=== PATIENT | female | born 1975 | race Caucasian/White ===

== ENCOUNTER 2021-12-08 08:59 | Outpatient (CLI) | payer BC, SELFPAY ==
[2021-12-08 16:36] LABS: SARS PCR* Negative SARS-CoV-2 (Negative)
--- OUTSIDE RECORDS SUMMARY | 2021-12-15 01:19 | XMS_ITS | Encounter Summary ---
:1975 Author Organization [facility] Address [address] [place] [address] Care Team Providers Name Role Phone Jose Combs M.D. Primary Care Provider [phone] Encounter Details Date Type Department Care Team Description 03/13/2021 Admin Visit Department of Family Medicine, [address] [address] [facility] [place] [phone] Social History Tobacco Use Types Packs/Day Years Used Date Smoking Tobacco: Never Sex Assigned at Date Recorded Not on file documented as of this encounter Plan of Treatment Not on filedocumented as of this encounter Visit Diagnoses Not on filedocumented in this encounter Additional Health Concerns Infection Onset Date Last Indicated Resolved Time COVID19 Pending 03/13/2021 03/13/2021 03/13/2021 11:23 PM CDT Assessment Noted Time PHQ-9 Depression Total Score: 4 01/05/2017 10:03 AM CD T documented as of this encounter Care Teams Shuttle Hand Relationship Specialty Start Date End Date Jose Combs M.B.B.S., MEdilberto. PCP - General [facility]/08/19 [address] [facility] [place] [phone] documented as of this encounter
--- OUTSIDE RECORDS SUMMARY | 2021-12-15 01:19 | XMS_ITS | Encounter Summary ---
:1975 Author Organization [facility] Address [address] [place] [address] Care Team Providers Name Role Phone Jose Combs M.D. Primary Care Provider [phone] Reason for Visit Reason Onset Date Comments Testing For Upper Respiratory Virus Symptoms 03/13/2021 Encounter Details Date Type Department Care Team Description 03/13/2021 External Outreach Department of [facility] Jeremy Joshua Contact With And (Suspected) Exposure To COVID-19; Medicine, [facility] Manjit Sprague Infection Upper Respiratory Building, in [address] [place], [place] [address] [facility] [address] [place], [place] [phone] [address] (Work) [phone] Social History Tobacco Use Types Packs/Day Years Used Date Smoking Tobacco: Never Sex Assigned at Date Recorded Not on file documented as of this encounter Progress Notes Aranza Krishnamurthy R.N. - 03/13/2021 9:15 AM CDT Encounter created for symptomatic infectious disease screening with possible COVID, Influenza, RSV, and/or Group A Strep testing. documented in this encounter Plan of Treatment Not on filedocumented as of this encounter Procedures Procedure Name Priority Date/Time Associated Diagnosis Comme nts SARS CORONAVIRUS-2 Routine 03/13/2021 10:24 AM Contact With An d Results for this RNA, V CDT (Suspected) Exposure procedu re are in To COVID-19 the results section. GROUP A STREP PCR, Routine 03/13/2021 10:24 AM Infection Upper Results for this THROAT CDT Respiratory procedure are i n the results section. documented in this encounter Results Streptococcus Group A, Molecular Detection, PCR, Throat (03/13/2021 10:24 AM CDT) P athologist Signature Group A Strep Negative Negative 03/13/2021 [place] PCR, Throat 6:20 PM CDT Specimen Anatomical Collection Method Collection Time Receive d Time (Source) Location / / Volume Laterality Varies (Throat) 03/13/2021 10:24 03/13/20 21 5:45 AM CDT PM CDT Joshua Luna D.O. LAB MICROBIOLOGY - GENERAL O RDERABLES Performing Organization Address City/State/ZIP Code Phon e Number [facility]- [address] [place] [address] [facility] [place] [address] System in [place] [address] SARS Coronavirus-2 RNA, V Symptomatic (03/13/2021 10:24 AM CDT) [facility] Method Time Signature SARS-CoV-2 Swab, 03/13/2021 MK[facility] Specimen Nasopharynx 11:23 PM Source CDT SARS CoV-2 Undetected Undetected 03/13/2021 [facility] RNA, TMA 11:23 PM CDT Comment: SARS-CoV-2 RNA absent. This result does not rule out COVID-19 in the patient, as the sensitivity of the test depends o n the timing of the specimen collection and the quality of the specim en. Result should be correlated with patient's history and clinical presentat ion. ----ADDITIONAL INFORMATION---- This molecular amplification test was pe rformed using the Aptima SARS-CoV-2 assay ([employer] on the [employer] [place] tem under emergency use authorization (EUA) by the U.S. Food and Drug Administ ration. Fact sheets for this EUA assay can be fo und at the following links: For Healthcare Providers: https://www.Cojoin a.gov/media/786598/download For Patients: https://www.fda.gov/media/ 055465/download Specimen Anatomical Collection Method Collection Time Receive d Time (Source) Location / / Volume Laterality Varies 03/13/2021 10:24 03/13/2021 5:03 (Nasopharynx) AM CDT PM CDT Joshua Luna D.O. LAB MICROBIOLOGY - GENERAL O RDERABLES Performing Organization Address City/State/ZIP Code Phon e Number [facility]- [address] [place] [address] [place] [address] System [address] documented in this encounter Visit Diagnoses Diagnosis Contact With And (Suspected) Exposure To COVID-19 Infection Upper Respiratory documented in this encounter Additional Health Concerns Infection Onset Date Last Indicated Resolved Time COVID19 Pending 03/13/2021 03/13/2021 03/13/2021 11:23 PM CDT Assessment Noted Time PHQ-9 Depression Total Score: 4 01/05/2017 10:03 AM CD T documented as of this encounter Care Teams Hotel Housekeeper Relationship Specialty Start Date End Date Jose Combs M.B.B.S., M.D. PCP - General 04/08/[address] [place] [phone] documented as of this encounter
--- OUTSIDE RECORDS SUMMARY | 2021-12-15 01:19 | XMS_ITS | Encounter Summary ---
:1975 Author Organization [facility] Address [address] [place] [address] Care Team Providers Name Role Phone Jose Combs M.D. Primary Care Provider [phone] Encounter Details Date Type Department Care Team Description 08/11/2020 Orders Only [facility] PCP [facility] MNT Jose Combs Sc reening Mammogram Alexa ColemanBPeymanBPeymanSPeyman, Breast Cancer M.D. [address] [facility] [place] [address] Social History Tobacco Use Types Packs/Day Years Used Date Smoking Tobacco: Never Sex Assigned at Date Recorded Not on file documented as of this encounter Plan of Treatment Not on filedocumented as of this encounter Visit Diagnoses Diagnosis Screening Mammogram Breast Cancer documented in this encounter Additional Health Concerns Assessment Noted Time PHQ-9 Depression Total Score: 4 01/05/2017 10:03 AM CD T documented as of this encounter Care Teams Communications Technologist Relationship Specialty Start Date End Date Jose Combs M.B.BMonalisa, MPeymanD. PCP - General 04/08/19 [address] [facility] [place] [address] documented as of this encounter
--- OUTSIDE RECORDS SUMMARY | 2021-12-15 01:19 | XMS_ITS | Encounter Summary ---
:1975 Author Organization [facility] Address [address] [place] [address] Care Team Providers Name Role Phone Jose Combs M.D. Primary Care Provider [phone] Reason for Visit Reason Comments COVID Nurse Line Encounter Details Date Type Department Care Team Description 05/13/2020 Clinical Communication Division of [facility] Nurse Sera [facility] Internal [facility] [address] [place] [address], in [facility] [address] [place] [phone] [address] [facility] (Work) [place] [address] Social History Tobacco Use Types Packs/Day Years Used Date Smoking Tobacco: Never Sex Assigned at Date Recorded Not on file documented as of this encounter Miscellaneous Notes Telephone Encounter - Carolina Gomez R.N. - 05/13/2020 9:21 AM REIMBURSEMENT DIRECTOR COVID-19 Nurse Line Screening ASSESSMENT Combo COVID + Upper Respiratory Infection (URI) Screening Select the most appropriate pathway: : Adult Have you had close contact* with a person who has a LABORATORY CONFIRMED case of COVID-19 in the past 14 days?: No (Continue Screening)(Last contact 05/06/20) In the last 48 hours, have you had a fever* OR symptoms that are unrelated to a preexisting illness?: New shortness of breath, New diarrhea, New muscle aches Have you received a COVID-19 vaccine in the last 72 hours? : No vaccine received (Continue Screening) Do you have any of the following urgent symptoms?: No urgent symptoms noted (Continue Screening) Do you have any of the following respiratory syntonical virus (RSV) complications? : No complications noted (Continue Screening) Are all the following symptoms present: temperature of 100.0 degrees Fahrenheit or greater, muscle aches or headache AND a cough?: No all symptoms are not present (End Screening) Symptom Onset Date of symptom onset: 05/12/20 Testing Recommendation Endpoint Is testing recommended? : Recommended to test PLAN Endpoint recommendation: Screening positive, testing indicated, advised to be swabbed for COVID-19 and Influenza, sent to [facility] located at [address] [place] [address]. The entrance is on the north side of the building. You must call [phone] for an appointment time.Testing hours are Daily 9 am to 5 pm.When you arrive at the testing site: Remain in your vehicle and check-in by phone using the same appointment line number. and Please avoid using public transportation per CDC recommendation. If you do not have personal transportation please self-quarantine until a personal transportation option is available. and Provided instruction to quarantine for 14 days from the last contact exposure to a confirmed COVID-19 case and testing is recommended. The best time to test is 5-7 days after last contact with an infected individual in order to have the best chance of detecting infection. If you are unsure of your last contact, or would like testing now, we can perform testing now. Even if your test is negative, you should continue to follow official public health quarantine recommendations. Contact your primary care team with any new symptoms. Care Points: -Wash hands frequently with soap and water for at least 20 seconds -If soap and water are not available, use a hand maintenance shop technician -Avoid touching your eyes, nose and mouth. -Clean and disinfect high-touch surfaces routinely. -Wear a mask over your nose and mouth. A cloth face cover is not a substitute for social distancing -Continue to keep about 6 feet between yourself and others. -Avoid public areas and public transportation. -Find new ways to connect with family and friends, get support and share feelings. -Seek emergent care if any of the following occur Trouble breathing Bluish lips or face Persistent pain or pressure in the chest New confusion or inability to rouse. -Notify your regular care provider of any new or worsening symptoms. Symptomatic Carepoints: Separate yourself from others and stay in a specific sick room if able. Avoid sharing personal or household items. Rest. Hydrate. Take Acetaminophen/Ibuprofen as needed to control fever and muscles aches. Use over the counter medications as needed for other symptoms. ExposureCarepoints: Continue to quarantine for 14 days from your last known exposure to someone with a laboratory confirmed case of COVID-19 regardless of a negative test result unless otherwise directed. If you remain asymptomatic and wish to be tested, it is recommended that you wait 5-7 days after the exposure before testing unless otherwise directed. Testing is recommended if you become symptomatic at any point. Education: Patient/caregiver able to teach back Patient agreeable to plan of care: Yes The following references were used: [facility] novel coronavirus (COVID- 19) resources CDC web site https://www.cdc.gov/coronavirus/2019-ncov/summary.html Nursing judgement BURSEMENT DIRECTOR documented in this encounter Plan of Treatment Not on filedocumented as of this encounter Visit Diagnoses Not on filedocumented in this encounter Additional Health Concerns Assessment Noted Time PHQ-9 Depression Total Score: 4 01/05/2017 10:03 AM CD T documented as of this encounter Care Teams Service Rig Operator Relationship Specialty Start Date End Date Jose Combs M.B.B.S., M.D. PCP - General 04/08/[address] [place] [phone] documented as of this encounter
--- OUTSIDE RECORDS SUMMARY | 2021-12-15 01:19 | XMS_ITS | Encounter Summary ---
:1975 Author Organization [facility] Address [address] [place] [address] Care Team Providers Name Role Phone Jose Combs M.D. Primary Care Provider [phone] Reason for Visit Reason Onset Date Comments Testing For Upper Respiratory Virus Symptoms 05/13/2020 Encounter Details Date Type Department Care Team Description 05/13/2020 External Outreach Department of [facility] Jeremy Joshua Contact With And (Suspected) Exposure To COVID-19; Medicine, [facility] Manjit Sprague Infection Upper Respiratory Building, in [address] [place], [place] [address] [facility] [address] [place], [place] [phone] [address] (Work) [phone] Social History Tobacco Use Types Packs/Day Years Used Date Smoking Tobacco: Never Sex Assigned at Date Recorded Not on file documented as of this encounter Progress Notes Juan Stack R.N. - 05/13/2020 9:37 AM CST Encounter created for symptomatic infectious disease screening with possible COVID, Influenza, and RSV testing. M DUMPER documented in this encounter Plan of Treatment Not on filedocumented as of this encounter Procedures Procedure Name Priority Date/Time Associated Diagnosis Comme nts SARS CORONAVIRUS-2 Routine 05/13/2020 10:32 AM Contact With An d Results for this RNA, V CREAM DUMPER (Suspected) Exposure procedu re are in To COVID-19 the results section. documented in this encounter Results SARS Coronavirus-2 RNA, V Symptomatic (05/13/2020 10:32 AM CREAM DUMPER) [facility] Method Time Signature SARS-CoV-2 Swab, 05/14/2020 [facility] Specimen Nasopharynx 2:15 AM CREAM DUMPER Source SARS CoV-2 Undetected Undetected 05/14/2020 [facility]TO RNA, TMA 2:15 AM CREAM DUMPER Comment: SARS-CoV-2 RNA absent. This result does not rule out COVID-19 in the patient, as the sensitivity of the test depends o n the timing of the specimen collection and the quality of the specim en. Result should be correlated with patient's history and clinical presentat ion. ----ADDITIONAL INFORMATION---- This molecular amplification test was pe rformed using the Aptima SARS-CoV-2 assay ([employer] on the [employer] tem under emergency use authorization (EUA) by the U.S. Food and Drug Administ ration. Fact sheets for this EUA assay can be fo und at the following links: For Healthcare Providers: https://www.fd a.gov/media/062063/download For Patients: https://www.fda.gov/media/ 646956/download Specimen Anatomical Collection Method Collection Time Receive d Time (Source) Location / / Volume Laterality Varies 05/13/2020 10:32 05/13/2020 3:02 (Nasopharynx) AM CREAM DUMPER PM CREAM DUMPER Joshua Luna D.O. LAB MICROBIOLOGY - GENERAL O JIMMY Performing Organization Address City/State/ZIP Code Phon e Number [facility]- [address] [place] [phone] [place] [address] [place] [address] [address] documented in this encounter Visit Diagnoses Diagnosis Contact With And (Suspected) Exposure To COVID-19 Infection Upper Respiratory documented in this encounter Additional Health Concerns Infection Onset Date Last Indicated Resolved Time COVID19 Pending 05/13/2020 05/13/2020 05/14/2020 2:15 AM CREAM DUMPER Assessment Noted Time PHQ-9 Depression Total Score: 4 01/05/2017 10:03 AM CD T documented as of this encounter Care Teams Tub Operator Relationship Specialty Start Date End Date Jose Combs M.B.B.S., M.D. PCP - General 04/08/[address] [place] [address] [place] [phone] documented as of this encounter
--- OUTSIDE RECORDS SUMMARY | 2021-12-15 01:19 | XMS_ITS | Encounter Summary ---
:1975 Author Organization [facility] Address [address] [place] [address] Care Team Providers Name Role Phone Jose Combs M.D. Primary Care Provider [phone] Reason for Referral Specialty Diagnoses / Procedures Referred By Contact Refer red To Contact Jose Combs M.B.B.S., [facility] [address] [place] [address] Referral ID Status Reason Start Date Expiration Date Visits Requ ested Visits Authorized TYPE FINISHER Encounter Details Date Type Department Care Team Description 04/02/2021 Orders Only [facility] PCP [facility] Jose Combs M.B.B.S., M.D. [address] [place], [place] [phone] (Wo rk) Social History Tobacco Use Types Packs/Day Years Used Date Smoking Tobacco: Never Sex Assigned at Date Recorded Not on file documented as of this encounter Plan of Treatment Scheduled Referrals Name Type Priority Associated Order Schedule Diagnoses Covid immunization Outpatient Referral Routine Ex pected: office visit Booster 021 (Approximate), Expires: 04/02/2022 documented as of this encounter Visit Diagnoses Not on filedocumented in this encounter Additional Health Concerns Assessment Noted Time PHQ-9 Depression Total Score: 4 01/05/2017 10:03 AM CD T documented as of this encounter Care Teams Ios Software Engineer Relationship Specialty Start Date End Date Jose Combs M.B.B.S., M.D. PCP - General 04/08/[address] [place] [address] [place] [phone] documented as of this encounter
--- OUTSIDE RECORDS SUMMARY | 2021-12-15 01:19 | XMS_ITS | Encounter Summary ---
:1975 Author Organization [facility] Address [address] [place] [address] Care Team Providers Name Role Phone Jose Combs M.D. Primary Care Provider [phone] Reason for Referral Outpatient (Routine) - Authorized Specialty Diagnoses / Procedures Referred By Contact Refer red To Contact Family Medicine Jose Combs [facility] EULOGIO Rucker M.D. [address] [place] [phone] Referral ID Status Reason Start Date Expiration Date Visits V isits Requested Authorized [id number] Authorized 11/10/2021 11/10/2022 1 1 Encounter Details Date Type Department Care Team Description 11/10/2021 Orders Only [facility] PCP [facility] Sa morelia Jeong M.D. [address] [place], [place] [phone] (Wo rk) Social History Tobacco Use Types Packs/Day Years Used Date Smoking Tobacco: Never Sex Assigned at Date Recorded Not on file documented as of this encounter Plan of Treatment Scheduled Referrals Name Type Priority Associated Diagnoses Order S filomena Family Medicine Outpatient Referral Routine Expec dominick: office visit 11/24/2021, (clinic) Expires: 05/09/2022 documented as of this encounter Visit Diagnoses Not on filedocumented in this encounter Additional Health Concerns Assessment Noted Time PHQ-9 Depression Total Score: 4 01/05/2017 10:03 AM CD T documented as of this encounter Care Teams Automatic Drill Operator Relationship Specialty Start Date End Date Jose Combs M.B.B.S., M.D. PCP - General 04/08/[address] [place] [phone] documented as of this encounter
--- OUTSIDE RECORDS SUMMARY | 2021-12-15 01:19 | XMS_ITS | Clinical Summary ---
:1975 Author Organization [facility] Address [address] [place] [address] Care Team Providers Name Role Phone Jose Combs M.D. Primary Care Provider [phone] Source Comments Patient records contain information from all sites at [facility]. For routine questions regarding patient records, call [phone] during business hours, M-F 8:00 AM - 5:00 PM Central Time. Record requests for emergency care only can be directed to [phone] at any time.[facility] Medications Medication Sig Dispensed Refills Start Date End Date Status cetirizine (ZyrTEC) 10 Take 1 tablet (10 30 tablet 0 8 Active mg tablet mg total) by mouth daily as needed for allergies. For allergies. Due for follow-up. escitalopram (LEXAPRO) Take 1 tablet (10 15 tablet 0 8 Active 10 mg tablet mg total) by mouth daily. Due for follow-up simvastatin (ZOCOR) 20 Take 1 tablet (20 30 tablet 0 8 Active mg tablet mg total) by mouth at bedtime. Due for labs Active Problems Problem Noted Date Body Mass Index 40.0 To 44.9 Adult 08/29/2016 Overview: Body mass index (BMI) 40.0-44.9, adult Rule activated problem due to BMI 40-44 posted on 08/29 at 15:09 CDT. Depression Anxiety 12/31/2015 Overview: Depression Anxiety Encounters Date Type Specialty Care Team Description 11/10/2021 Orders Only Leslie Henry M.D. from Last 3 Months Immunizations Name Administration Dates Next Due Influenza TIV (IM) 03/21/2012, 02/16/2009, 03/05/2008, 02/27/2007, 03/17/2006 Influenza, Injectable, Quadrivalent 02/06/2019, 02/16/2016, 03/03/2015 Influenza, Seasonal, Injectable 03/21/2012, 02/16/2009, 02/06, 02/27/2007, 03/17/2006 Influenza, Unspecified 03/21/2012, 04/20/2011, 03/17/2010 Td (Adult), adsorbed 04/26/2021 Tdap 05/03/2010 influenza vaccine quad 03/11/2021, 02/06/2020, 02/05/2019, (FLUZONE/FLUARIX) (6 months and 02/22/2018, 02/23/2017 older)(PF) Family History Medical History Relation Name Comments Melanoma Father Heart attack Mother Hyperlipidemia Mother Relation Name Status Comments Father Mother Social History Tobacco Use Types Packs/Day Years Used Date Smoking Tobacco: Never Sex Assigned at Date Recorded Not on file Last Filed Vital Signs Vital Sign Reading Time Taken Comments Blood Pressure 129/72 02/23/2017 11:11 AM CDT Pulse 68 02/23/2017 11:07 AM CDT Temperature - - Respiratory Rate 12 01/05/2017 8:24 AM CDT Oxygen Saturation - - Inhaled Oxygen Concentration - - Weight 107 kg (235 lb 7.2 oz) 02/01/2017 3:36 PM CDT Height 163 cm (5' 4.17) 02/23/2017 11:01 AM CDT Body Mass Index 40.2 02/01/2017 3:36 PM CDT Plan of Treatment Health Maintenance Due Date Last Done Comments CT Colonography 1975 Cologuard 1975 HIV Screening 1975 Hepatitis B Vaccines (1 of 1975 3 - 3-dose series) Hepatitis C Screening 1975 Mammogram 05/28/2019 05/28/2018 (Performed elsewhere), 02/08/2017, 01/05/2017 COVID-19 Vaccine (3 - 02/16/2021 09/16/2020, 08/26/2020 Booster for Pfizer series) Depression Screening 05/08/2021 (Annual PHQ-2) Cervical Cancer Screening 01/05/2022 01/05/2017, 12/31/2015 , 12/18/2014, Additional history exists Influenza Vaccine (#1) 2022 03/11/2021, 02/06/2020, 02/06/2019, Additional history exists Colonoscopy 04/12/2024 04/12/2021, 01/30/2017, 01/30/2017 Colorectal Cancer 04/12/2024 Surveillance Fasting Glucose for 04/26/2024 04/26/2021, 05/14/2020, Diabetes Screening 04/19/2019, Additional history exists Fasting Lipid Panel 04/26/2026 04/26/2021, 04/23/2020, 04/19/2019, Additional history exists DTaP,Tdap,and Td Vaccines 04/26/2031 04/26/2021, 05/03/2010 (3 - Td or Tdap) Pneumococcal vaccine (0-64 Aged Out No lo nger eligible years) based on patient 's age to complete this topic Insurance Payer Benefit Plan / Subscriber ID Effective Dates Phone Addre ss Type Group [employer] [id number] 2020-Presen [id number] [facility] t 00 [facility] [id number] Care Teams Outlet Manager Relationship Specialty Start Date End Date Jose Combs M.B.BPeymanSPeyman, M.D. PCP - General 04/08/19 [address] [place] [place] [address]
--- OUTSIDE RECORDS SUMMARY | 2021-12-15 01:19 | XMS_ITS | Encounter Summary ---
:1975 Author Organization [facility] Address [address] [place] [address] Care Team Providers Name Role Phone Jose Combs M.D. Primary Care Provider [phone] Encounter Details Date Type Department Care Team Description 05/13/2021 Orders Only [facility]CP [facility] Jose Combs Sc reening Mammogram Alexa ColemanBPeymanBPeymanSPeyman, Breast Cancer M.D. [address] [facility] [place] [address] Social History Tobacco Use Types Packs/Day [...] documented as of this encounter Care Teams Boat Joiner Helper Relationship Specialty Start Date End Date Jose Combs M.B.BMonalisa, MPeymanD. PCP - General 04/08/19 [address] [facility] [place] [address] documented as of this encounter
--- OUTSIDE RECORDS SUMMARY | 2021-12-15 01:19 | XMS_ITS | Encounter Summary ---
:1975 Author Organization [facility] Address [address] [place] [address] Care Team Providers Name Role Phone Jose Combs M.D. Primary Care Provider [phone] Encounter Details Date Type Department Care Team Description 05/13/2020 Admin Visit Department of Family Medicine, [address] [address] [facility] [phone] Social History Tobacco Use Types Packs/Day Years Used Date Smoking Tobacco: Never Sex Assigned at Date Recorded Not on file documented as of this encounter Plan of Treatment Not on filedocumented as of this encounter Visit Diagnoses Not on filedocumented in this encounter Additional Health Concerns Infection Onset Date Last Indicated Resolved Time COVID19 Pending 05/13/2020 05/13/2020 05/14/2020 2:15 AM DIRECTOR CHEMISTRY Assessment Noted Time PHQ-9 Depression Total Score: 4 01/05/2017 10:03 AM CD T documented as of this encounter Care Teams Turbogenerator Operator Relationship Specialty Start Date End Date Jose Combs M.B.B.S., MEdilberto. PCP - General 04/08/19 [address] [facility] [place] [id number] documented as of this encounter
--- OUTSIDE RECORDS SUMMARY | 2021-12-15 01:19 | XMS_ITS | Encounter Summary ---
:1975 [address] Organization [facility] Address [address] [place] [address] Care Team Providers Name Role Phone Jose Combs M.D. Primary Care Provider [phone] Reason for Visit Reason Comments COVID Nurse Line Encounter Details Date Type Department Care Team Description 03/13/2021 Clinical Communication Division of Mercedes Chen Nurse Line [facility] M, R.NPeyman [facility] [phone] [place], in (Work) [place], [place] [address] [place] [address] Social History Tobacco Use Types Packs/Day Years Used Date Smoking Tobacco: Never Sex Assigned at Date Recorded Not on file documented as of this encounter Miscellaneous Notes Telephone Encounter - Mercedes Chen [employer] - 03/13/2021 8:53 AM CDT COVID-19 Nurse Line Screening ASSESSMENT Region Select appropriate region: : [place] Age Pathway Select approprite pathway: : Adult Have you had close contact* with a person who has a LABORATORY CONFIRMED case of COVID-19 in the past 14 days?: No (Continue Screening) In the last 48 hours, have you had a fever* OR symptoms that are unrelated to a preexisting illness?: New headache,New sore throat Have you received a COVID-19 vaccine in the last 72 hours? : No vaccine received (Continue Screening) Do you have any of the following urgent symptoms?: No urgent symptoms noted (Continue Screening) Symptom Onset Date of symptom onset: 03/11/21 PLAN Endpoint recommendation: Symptomatic testing indicated, advised to be swabbed for COVID-19 and GroupA Strep (age 3 - 75 only), sent to [facility] located at [address] [place] [address] ([facility]). Anappointment is required for testing, please call [phone] Monday-Monday 7am to 6pm and Monday & Monday 9am to 4pm to schedule an appointment. Testing hours are 8am - 4:30pm daily. You can also schedule via your Patient Online Services account., Please avoid using public transportation per CDC recommendation. If you do not have personal transportation please self-quarantine until a personal transportation option is available. Standard Care Points -Get a COVID -19 vaccine as soon as you can if not fully vaccinated. -Wash hands frequently with soap and water, use hand hvac design mechanical engineer if soap and water aren't available. -Wear a mask over your nose and mouth to help protect yourself and others if not fully vaccinated and having no symptoms -Stay 6 feet between yourself and others who don't live with you. -Avoid crowds and poorly ventilated indoor spaces. -Seek emergent care if any of the following occur Trouble breathing Bluish lips or face Persistent pain or pressure in the chest New confusion or inability to rouse. -Notify your regular care provider of any new or worsening symptoms. Symptomatic Carepoints: Stay home and separate yourself from others and stay in a specific sick room if able. Avoid sharing personal or household items. Rest. Hydrate. Take Acetaminophen/Ibuprofen asneeded to control fever and muscles aches. Use over the counter medications as needed for other symptoms. If you have received a negative COVID-19 test result and continue to have new or worsening symptoms after 72 hours please call the COVID Nurse Line to assess if you need repeat testing or reach out to your Primary Care Provider for guidance. Education: Patient/caregiver able to teach back Patient agreeable to plan of care: Yes The following references were used: [facility] novel coronavirus (COVID- 19) resources Nursing judgement documented in this encounter Plan of Treatment Not on filedocumented as of this encounter Visit Diagnoses Not on filedocumented in this encounter Additional Health Concerns Assessment Noted Time PHQ-9 Depression Total Score: 4 01/05/2017 10:03 AM CD T documented as of this encounter Care Teams Measurement Superintendent Relationship Specialty Start Date End Date Jose Combs M.B.B.S., M.D. PCP - General 04/08/[address] [place] [address] [place] [id number] documented as of this encounter
--- OUTSIDE RECORDS SUMMARY | 2021-12-15 01:19 | XMS_ITS | Encounter Summary ---
:1975 Author Organization [facility] Address [address] [place] [address] Care Team Providers Name Role Phone Jose Combs M.D. Primary Care Provider [phone] [phone] Encounter Details Date Type Department Care Team Description 08/25/2020 Orders Only [facility] PCP [facility] Sa morelia Jeong M.D. [address] [place], [place] [phone] (Wo rk) Social History [...] documented as of this encounter Care Teams Manager Hris Relationship Specialty Start Date End Date Jose Combs M.B.B.S. MRadha PCP - General 04/08/[address] [place] [address] [place] [phone] documented as of this encounter
--- OUTSIDE RECORDS SUMMARY | 2021-12-15 01:20 | XMS_ITS | Encounter Summary ---
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 [employer] Document Id: [id number] CDT!30 Miscellaneous - Velia Younger LPeymanP.NPeyman 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 Intake/History Entered On: 12/18/2014 10:29 CDT Performed On: 12/18/2014 10:26 CDT by VELIA YOUNGER LPN Intake Chief Complaint : physical Temperature Core : 36.4 DegC(Converted to: 97.5 DegF) (LOW) Peripheral Pulse Rate : 76 /min Respiratory Rate : 16 /min Systolic Blood Pressure : 116 mmHg Diastolic Blood Pressure : 84 mmHg NIBP Mean : 95 mmHg BP Location : Left upper extremity Blood Pressure Cuff Size : Regular Height : 160.5 cm(Converted to: 5 ft 3 inch(es), 63 inch(es)) Actual Weight : 100.4 kg(Converted to: 221 lb 6 oz) Dosing Weight Clinic : 100.4 kg Clinic BSA : 2.12 Body Mass Index : 38.97 kg/m2 VELIA YOUNGER LPN - 12/18/2014 10:26 CDT General Info Languages : Singaporean Is Patient Female and 13-50 no hysterectomy : Yes Status : Patient denies Are you ? : No VELIA YOUNGER LPN - 12/18/2014 10:26 CDT Subjective Pain Symptoms : No VELIA YOUNGER LPN - 12/18/2014 10:26 CDT Dependent Habits Tobacco Use/Currently Using : No Tobacco Use/Last 12 months : No Exposure to Tobacco Smoke : Other: never Smoking Status : Never smoker VELIA YOUNGER LPN - 12/18/2014 10:26 CDT Caffeine Use Grid Caffeine Use : None VELIA YOUNGER LPN - 12/18/2014 10:26 CDT Recreational Drug Use Grid Drug Use : None ARMIN VELIA CRUZ LPN - 12/18/2014 10:26 CDT Source: [facility] [employer] Document Id: [id number] CDT!34 Miscellaneous - Velia Younger L.PPeymanNPeyman - 12/18/2014 10:26 AM CDT Health Assessment Health Assessment Entered On: 12/18/2014 10:29 CDT Performed On: 12/18/2014 10:26 CDT by VELIA YOUNGER LPN Health Assessment Complete Health Assessment Complete or Modified : Annual Health Assessment Annual Health Assessment Completed : Yes VELIA YOUNGER LPN - 12/18/2014 10:26 CDT Nutrition Nutrition Risk Factors by History Adult : None ARMIN VELIA CRUZ LPN - 12/18/2014 10:26 CDT Functional Current Daily Living Assistance : None VELIA YOUNGER LPN - 12/18/2014 10:26 CDT Dependent Habits Tobacco Use/Currently Using : No Tobacco Use/Last 12 months : No Exposure to Tobacco Smoke : Other: never Smoking Status : Never smoker VELIA YOUNGER LPN - 12/18/2014 10:26 CDT Caffeine Use Grid Caffeine Use : None VELIA YOUNGER LPN - 12/18/2014 10:26 CDT Recreational Drug Use Grid Drug Use : None VELIA YOUNGER LPN - 12/18/2014 10:26 CDT Psychosocial Domestic Abuse Concerns : None Behavioral Health Screen/Safety Assmt : No Anabaptist Preference : Unknown VELIA YOUNGER LPN - 12/18/2014 10:26 CDT Advance Directive Advanced Directives : No Advance Directive Additional Information : No VELIA YOUNGER LPN - 12/18/2014 10:26 CDT Educ Needs Learning Style Preference Adult Grid Patient : Demonstration, Printed materials, Verbal explanation, Video/Educational TV Family : Demonstration, Printed materials, Verbal explanation, Video/Educational TV VELIA YOUNGER LPN - 12/18/2014 10:26 CDT Source: [facility] [employer] Document Id: [id number] CDT!30 documented in this encounter Plan of Treatment Not on filedocumented as of this encounter Procedures Procedure Name Priority Date/Time Associated Comments Diagnosis DIPSTICK, U Routine 12/18/2014 11:38 Results for this AM CDT procedure are i n the results section. LIPID PANEL, S Routine 12/18/2014 11:31 Results f or this AM CDT procedure are i n the results section. AUTOMATED DIFFERENTIAL, Routine 12/18/2014 11:31 Results for this B AM CDT procedure are i n the results section. CBC WITH DIFFERENTIAL, B Routine 12/18/2014 11:31 Results for this AM CDT procedure are i n the results section. ASPARTATE Routine 12/18/2014 11:31 Results for this AMINOTRANSFERASE (AST), AM CDT proc edure are in S/P the results section. BASIC METABOLIC PANEL, Routine 12/18/2014 11:31 R esults for this S/P AM CDT procedure are i n the results section. PATHOLOGY VOCATIONAL ED INSTRUCTOR CYTOLOGY Routine 12/18/2014 12:00 R esults for this AM CDT procedure are i n the results section. documented in this encounter Results (ABNORMAL) Dipstick, Urine (12/18/2014 11:38 AM CDT) [facility] gist Method Time Signature HXUr Color Yellow Colorless POWERCHART Clarity Clear Clear POWERCHART Glucose Negative Negative POWERCHART MGDL HXBILIRUBIN Negative Negative POWERCHART Ketones, QL(U) Negative Negative POWERCHART MGDL Specific 1.025 POWERCHART [place], POCT, U HXBLOOD Trace (A) Negative POWERCHART pH, POCT, Urine 6.0 <5.0 POWERCHART Protein, Ur, Dip Negative Negative POWERCHART MGDL Urobilinogen 0.2 0.2 MGDL POWERCHART HXNITRITE Negative Negative POWERCHART Leukocyte Negative Negative POWERCHART Esterase Specimen (Source) Anatomical Collection Method Collection Time Re ceived Time Location / / Volume Laterality Urine, First 12/18/2014 11:38 Voided AM CDT Naz Hdez M.D. LAB URINE ORDERABLES Performing Organization Address City/[facility] Code Phon e Number POWERCHART Automated Differential (12/18/2014 11:31 AM CDT) P athologist Signature Absolute 3.15 1.70 - POWERCHART Neutrophils 7.00 109L Lymphocytes 2.50 0.90 - POWERCHART 2.90 X109L Monocytes 0.49 0.30 - POWERCHART 0.90 X109L Eosinophils 0.11 0.05 - POWERCHART 0.50 X109L Absolute 0.03 0.00 - POWERCHART Basophil 0.30 X109L Specimen Anatomical Collection Method Collection Time Receive d Time (Source) Location / / Volume Laterality Blood 12/18/2014 11:31 12/18/2014 AM CDT 11:31 AM CDT Naz Hdez M.D. LAB BLOOD ADD-ON Performing Organization Address City/[facility] Phon e Number POWERCHART CBC with Differential (12/18/2014 11:31 AM CDT) P athologist Signature Leukocytes 6.3 3.4 - 10.5 POWERCHART X109L Erythrocytes 4.83 3.90 - 5.03 POWERCHART [id number] Hemoglobin 13.5 12.0 - 15.5 POWERCHART GDL Hematocrit 41.4 34.9 - 44.5 POWERCHART MCV 85.7 82.0 - 98.0 POWERCHART FL HX RDW 13.8 11.9 - 15.5 POWERCHART Platelet Count 252 150 - 450 POWERCHART X109L Specimen (Source) Anatomical Collection Method Collection Time Re ceived Time Location / / Volume Laterality Blood 12/18/2014 11:31 AM CDT Naz Hdez M.D. LAB BLOOD ADD-ON Performing Organization Address City/State/[facility] Code Phon e Number POWERCHART BMP (Basic Metabolic Panel) (12/18/2014 11:31 AM CDT) P athologist Signature BUN (Blood Urea 13 6 - 21 MGDL POWERCHART Nitrogen), S Chloride, S 104 98 - 107 POWERCHART MMOLL CO2 Total 25 22 - 29 POWERCHART MMOLL Creatinine, S 0.7 0.6 - 1.1 POWERCHART MGDL Glucose 98 70 - 139 POWERCHART MGDL Calcium, Total, 9.6 8.0 - 10.3 POWERCHART S MGDL Sodium, S 141 135 - 145 POWERCHART MMOLL Potassium, S 4.5 3.6 - 5.2 POWERCHART MMOLL HXeGFR (MDRD) >60 >=60 POWERCHART [id number] eGFR >60 >=60 POWERCHART Black/ [id number] [place]an Specimen (Source) Anatomical Collection Method Collection Time Re ceived Time Location / / Volume Laterality Blood 12/18/2014 11:31 AM CDT Naz Hdez M.D. LAB BLOOD ADD-ON Performing Organization Address City/State/ZIP Code Phon e Number POWERCHART Lipid Panel (12/18/2014 11:31 AM CDT) P athologist Signature Calculated LDL 100 <=129 MGDL POWERCHART Comment: 2014 National Lipid Association recommen dations for LDL-C in adults ages 18 and up: Desirable <100 mg/dL Above desirable 100-129 mg/dL Borderline high 130-159 mg/dL High 160-189 mg/dL Very High 190 mg/dL 2014 National Lipid Association recommen dations for LDL-C in children ages 2 to 17. Acceptable <110 mg/dL Borderline High 110-129mg/dL High 130 mg/dL LDL-C >190mg/dL: The markedly elevated LDL level is suggestive of a genetic condition such as familial hypercholesterolemia(FH) or familial defective apolipoprotein B-100 (FDB). Molecular genetic t esting for FH and FDB is available throu [facility]: FH/ADH Genetic Reflex Moore el (test ADHP). Acquired (non-genetic) causes of markedly increased LDL cholesterol include cholestatic liver disease due to the presence of LpX. If a genetic form of hypercholesterolemia is suspected, family studies including biochemical testing fo r lipids (total cholesterol,triglycerides, LDL cholesterol and HDL cholesterol) are recommended. ??Please contact the laboratory at or the on-line test catalog at [facility] for information about how to order these eli ts or to speak with a genetic counselor. Further interpretation would require clinical information. Total Cholesterol/HDL Ratio 3.46 PO WERCHART Cholesterol, Total 180 <=199 MGDL POWERCHART Comment: 2013 National Lipid Association recommen dations for Total Cholesterol in adults ages 18 and up: Desirable <200 mg/dL Borderline high 200-239 mg/dL High 240 mg/dL 2014 National Lipid Association recommen dations for Total Cholesterol in children ages 2 to 17. Acceptable <170 mg/dL Borderline High 170-199 mg/dL High 200 mg/dL HX HDL 52 >=50 MGDL POWERCHART Comment: 2013 National Lipid Association recommen dations for HDL-C in adults ages 18 and up: Low <40 mg/dL (Men) Low <50 mg/dL (Women) 2014 National Lipid Association recommen dations for HDL-C in children ages 2 to 17. Low <40 mg/dL Borderline Low 40-45 mg/dL Acceptable >45 mg/dL Triglycerides 141 <=149 MGDL POWERCHART Comment: 2013 National Lipid Association recommen dations for Triglycerides in adults ages 18 and up: Normal <150 mg/dL Borderline High 150-199 mg/dL High 200-499 mg/dL Very High 500 mg/dL 2014 National Lipid Association recommen dations for Triglycerides in children ages 2 to 9. Acceptable <75 mg/dL Borderline High 75-99 mg/dL High 100 mg/dL 2014 National Lipid Association recommen dations for Triglycerides in children ages 10 to 17. Acceptable <90 mg/dL Borderline High 90-129 mg/dL High 130 mg/dL Trigs >400mg/dL: Triglycerides >400 mg/ dL. Calculated LDL cholesterol is not valid. Non-HDL cholesterol may be used for risk assessment when triglycerides are >400mg/dL. HXLDL/HDL 2 POWERCHART Specimen (Source) Anatomical Collection Method Collection Time Re ceived Time Location / / Volume Laterality Blood 12/18/2014 11:31 AM CDT Naz Hdez M.D. LAB BLOOD ADD-ON Performing Organization Address City/State/ZIP Code Phon e Number POWERCHART AST (Aspartate Aminotransferase) (12/18/2014 11:31 AM CDT) [facility] gist Method Time Signature Aspartate 28 8 - 43 POWERCHART Aminotransferase UNITL (AST), S Specimen (Source) Anatomical Collection Method Collection Time Re ceived Time Location / / Volume Laterality Blood 12/18/2014 11:31 AM CDT Naz Hdez M.D. LAB BLOOD ADD-ON Performing Organization Address City/State/ZIP Code Phon e Number POWEREMILY Pathology VOCATIONAL ED INSTRUCTOR Cytology (12/18/2014 12:00 AM CDT) Specimen (Source) Anatomical Location Collection Method / Collectio n Time Received Time / Laterality Volume 12/18/2014 Narrative [facility] - 01/01/2015 8:10 AM CDT [facility] [place] [address] [place], [place] ??[address] Patient Name: JANA DUMONT Patient ID #: [id number] Collected: 12/18/2014 Address: City/State/Zip: [address] [place] [address] ??[phone] Received: Reported: 12/19/2014 12/31/2014 Soc. Sec. #: ?/Age/Sex 1975 (Age: 39) ??F Physician(s): JEANETH HDEZ MD Copy To: ? [facility] ??[id number] [facility], ??[place] ??[address] CYTOPATHOLOGY VOCATIONAL ED INSTRUCTOR REPORT FINAL CYTOLOGIC DIAGNOSIS Pap Smear - ThinPrep: NEGATIVE FOR INTRAEPITHELIAL LESION OR MALIGNANCY REACTIVE/REPARATIVE CHANGES. ENDOCERVICAL CELLS/COMPONENT PRESENT. SATISFACTORY SPECIMEN FOR EVALUATION. ??This specimen required a physician interpretation under CLIA 1987 ?? Electronically Signed Out By eae/12/31/2014 SIVA CHAMBERLAIN M.D. MARCELINO MUHAMMAD(ASCP) The Pap test is a screening procedure an d, as such, is subject to both false positive and false negative results as evidenced by published data. ??It is not a diagnostic test and results should be inter preted in the context of the patient's h istory and other clinical findings. ??Obtaining per iodic Pap tests may help to minimize the consequences of any false negatives that may occur. Procedures/Addenda: HUMAN PAPILLOMA VIRUS TESTING (HPV) ? Date Ordered: ? 01/01/2015 ? Status: ??Signed Out Date Complete: ? 01/01/2015 ? By: ??RC Arcenio CT(ASCP) Date Reported: ? 01/01/2015 INTERPRETATION: Test: Aptima High Risk HPV Result: NEGATIVE FOR HIGH RISK HPV Specimen Description: ThinPrep? ?? Pap Test PreservCyt Solution HPV by Sales Representative Consultant-Mediated Amplificat ion (TMA) for E6/E7 viral messenger RNA (mRNA) is an in-vitro diagnostic test for the detection of 14 high-risk Human Papillomavirus (HPV) types (16, 18, 31, 33, 35, 39, 45, 51, 52, 56, 58, 59, 66, and 68) in cervical specimen. Intended for co-testi ng or reflex testing of ASC-US Pap smears. Interpretation for patients with ASC-US cytology: Low likelihood of underlying high-grade CIN2-3 or cancer; results are not intended to prevent women from proceeding to colposcopy. Interpretation for patients with NILM cy tology who are over 30 years old: Very low likelihood of underlying high-grade ESTER or cancer; results do not preclude future HPV infection or cytologic abnormalities with underlying CIN2-3 or cancer. SPECIMEN(S) RECEIVED: Pap Smear - ThinPrep CLINICAL HISTORY: Date of Last Menstrual Period: 12/09/2014 Hormonal History: No hormonal therapy Other Clinical Conditions: HPV TYPING REQUESTED Naz Hdez M.D. LAB PAP COPATH ORDERABLES Performing Organization Address City/State/ZIP Code Phon e Number [facility] documented in this encounter Visit Diagnoses Not on filedocumented in this encounter Additional Health Concerns Assessment Noted Time PHQ-9 Depression Total Score: 4 12/18/2014 10:54 AM CD T documented as of this encounter
--- OUTSIDE RECORDS SUMMARY | 2021-12-15 01:20 | XMS_ITS | Encounter Summary ---
:1975 Author Organization [facility] Address [address] [place] [address] Care Team Providers Name Role Phone Naz Hdez M.D. Primary Care Provider Reason for Visit Reason Comments Med Refill Encounter Details Date Type Department Care Team Description 02/05/2018 Refill Department of Family Medicine, Naz park M.D. Med Refill [facility], in [address] [place] [id number] [place] [address] [place] [address] [phone] Social History Tobacco Use Types Packs/Day Years [...] documented as of this encounter Care Teams Telecommunications Officer Relationship Specialty Start Date End Date Naz Hdez M.D. PCP - General 10/20/16 04/07/19 documented as of this encounter
--- OUTSIDE RECORDS SUMMARY | 2021-12-15 01:20 | XMS_ITS | Encounter Summary ---
:1975 Author Organization [facility] Address [address] [place] [address] Care Team Providers Name Role Phone Unavailable Primary Care Provider Unavailable Encounter Details Date Type Department Care Team Description 12/18/2014 Hospital Encounter HX NO MAPPING Naz Hdez M.D. [address] [place], [place] [address] (Wo rk) Social History Tobacco Use Types Packs/Day Years Used Date Smoking Tobacco: Never Assessed Sex Assigned at Date Recorded Not on file documented as of this encounter Miscellaneous Notes Miscellaneous - Conversion, Historical Provider Ser - 12/18/2014 11:59 PM CDT Coding Summary-Paper Based CODING DATE: 01/05/2015 FINAL [facility] STATUS: * Discharged to Home or Self Care PAYOR: [employer] ADMIT DX: REASON FOR VISIT DX: FINAL DX: PRINCIPAL: V76.2 Screening for Malignant Neoplasms of the Cervix SECONDARY: V73.81 Screening Examination for Human Papillomavirus PROCEDURES DOCTOR NAME DATE NOTE: The code number assigned matches the documented diagnosis and / or procedure in the patient's chart. However, the narrative phrase printed from the coding software may appear abbreviated, or result in slightly different terminology. Coded By: NURIS WASHINGTON Date Saved: 01/05/2015 04:35 pm [facility]: [facility] Document Id: [id number] Miscellaneous - Conversion, Historical Provider Ser - 12/18/2014 11:59 PM CDT Coding Summary-Paper Based CODING DATE: 01/05/2015 FINAL [facility] STATUS: * Discharged to Home or Self Care PAYOR: [employer] ADMIT DX: REASON FOR VISIT DX: FINAL DX: PRINCIPAL: V76.2 Screening for Malignant Neoplasms of the Cervix SECONDARY: V73.81 Screening Examination for Human Papillomavirus PROCEDURES DOCTOR NAME DATE NOTE: The code number assigned matches the documented diagnosis and / or procedure in the patient's chart. However, the narrative phrase printed from the coding software may appear abbreviated, or result in slightly different terminology. Coded By: NURIS WASHINGTON Date Saved: 01/05/2015 04:35 pm Source: [employer] Document Id: [id number] R INSTALLER PV documented in this encounter Plan of Treatment Not on filedocumented as of this encounter Visit Diagnoses Not on filedocumented in this encounter Additional Health Concerns Assessment Noted Time PHQ-9 Depression Total Score: 4 12/18/2014 10:54 AM CD T documented as of this encounter
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
--- OUTSIDE RECORDS SUMMARY | 2021-12-15 01:20 | XMS_ITS | Encounter Summary ---
:1975 Author Organization [facility] Address [address] [place] [address] Care Team Providers Name Role Phone Naz Hdez M.D. Primary Care Provider Encounter Details Date Type Department Care Team Description 02/23/2017 Hospital Encounter HX [facility] SURGEON Rebel Gonzalez M.D. Social History Tobacco Use Types Packs/Day Years Used Date Smoking Tobacco: Never Sex Assigned at Date Recorded Not on file documented as of this encounter Last Filed Vital Signs Vital Sign Reading Time Taken Comments Blood Pressure 129/72 02/23/2017 11:11 AM CDT Pulse 68 02/23/2017 11:07 AM CDT Temperature - - Respiratory Rate - - Oxygen Saturation - - Inhaled Oxygen Concentration - - Weight - - Height 163 cm (5' 4.17) 02/23/2017 11:01 AM CDT Body Mass Index - - documented in this encounter Medications at Time of Discharge Medication Sig Dispensed Refills Start Date End Date cetirizine (ZyrTEC) 10 Take 1 tablet by 0 017 02/05/2018 mg tablet mouth daily as needed. For allergies escitalopram (LEXAPRO) Take 1 tablet by 0 017 01/12/2018 10 mg tablet mouth daily. documented as of this encounter Progress Notes Roni Gonzalez M.D. - 02/23/2017 11:01 AM CDT JEANNIE She returns to the clinic. She underwent a colonoscopy with polypectomy. The polyp was located at the hepatic flexure. She has no history of previous colonoscopy and she is now 41 years old. 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 We spent about 15 minutes with her in the clinic today. The polyp was removed with a wiresnare and electrocautery so we asked her to stay off the aspirin for 2 weeks. We will put her on thelist for a rescope in 3 years. Roni Gonzalez M.D./fiorella Electronically Signed By: RONI GONZALEZ MD On: 03/07/2017 01:52 PM Source: [facility] MHSDOLBEYNONRADSYS Document Id: [id number] documented in this encounter Miscellaneous Notes Miscellaneous - Arabella Davies L.PPeymanNPeyman - 02/23/2017 2:06 PM CDT Reminder Msg From: ARABELLA DAVIES LPN (FB Surgery Nurse) To: FB Surgery Nurse; Sent: 02/23/2017 14:06:48 CDT Show up: 01/07/2020 14:06:00 CDT Subject: Reminder Msg Due Date/Time: 02/15/2020 14:06:00 CDT Please Remember to: Per Dr. Gonzalez: Rescope colon in 3 yrs. Last colonoscopy done: 01/30/17 Quality of miralax prep was: excellent PATIENT: ( ) Call Patient ( ) Ask Patient to ( ) ( ) Call Relative ( ) Schedule Patient ( ) ( ) Call for [place] Floor ( ) Follow up on Results ( ) Other: PROVIDER: ( ) Call Physician ( ) Call Pharmacist ( ) Call Lab ( ) Other: Special Instructions: Comments: Source: [facility] POWERCHART Document Id: [id number] Miscellaneous - Roni Gonzalez M.D. - 02/23/2017 11:40 AM CDT Ambulatory Discharge Medication List [address] [id number] Visit Information Name: JANA DUMONT [facility] Number: [id number] Current Date: 02/23/2017 11:40:38 Attending Provider: RONI GONZALEZ MD Primary Care Provider: NAZ HDEZ MD [...] Take Indications/Special Instructions/Comments/Notes for Patient Medication Changes/Routing bisacodyl (bisacodyl 5 mg oral delayed release tablet) 2 Tablet(s), Oral, once Take between 12 (noon) and 4 pm with 8 oz of water. Take before you start Miralax and Gatorade mixture cetirizine (ZyrTEC 10 mg oral tablet) 1 Tablet(s), Oral, once a day as needed for allergi escitalopram (Lexapro 10 mg oral tablet) 1 Tablet(s), Oral, once a day LORazepam (LORazepam 0.5 mg oral tablet) See Instructions 1 tab(s) PO 1/2 hour prior to airflight magnesium citrate (magnesium citrate 1.745 g/30 mL oral liquid) 300 Milliliter, Oral, once 5 hours prior to proceedure, drink contents of this bottle with 10 oz of water polyethylene glycol 3350 (MiraLax oral powder for reconstitution) 238 gm, Oral, once Mix one bottle of Miralax with 64 oz of gatorade. Drink an 8 oz glass of solution every 15 min untill gone simvastatin (simvastatin 20 mg oral tablet) 1 Tablet(s), Oral, once a day (at bedtime) Stop Taking the Following Medications: Medication list as of 02-23-17 11:40 Attention: If you have any medications at home that are not on this list, DO NOT take them until youcontact your provider for clarification. Give a copy of your medication list to your primary care provider. Update your medication list any time medications or doses are changed and carry your medication list at all times in case of emergency. Electronically Signed By: RONI GONZALEZ MD Signed On:23-FEB-2017 11:39:15 Additional Information: Source: [facility] POWERCHART Document Id: [id number] Miscellaneous - Roni Gonzalez M.D. - 02/23/2017 11:40 AM CDT Ambulatory Patient Summary [address] [id number] Visit Information Name: JANA DUMONT [facility] Number: [id number] Current Date: 02/23/2017 11:40:39 Physicians Attending Provider: RONI GONZALEZ MD Primary Care Provider: NAZ HDEZ MD TIM JANA EMERSON has been given the following list of [...] Take Indications/Special Instructions/Comments/Notes for Patient Medication Changes/Routing bisacodyl (bisacodyl 5 mg oral delayed release tablet) 2 Tablet(s), Oral, once Take between 12 (noon) and 4 pm with 8 oz of water. Take before you start Miralax and Gatorade mixture cetirizine (ZyrTEC 10 mg oral tablet) 1 Tablet(s), Oral, once a day as needed for allergi escitalopram (Lexapro 10 mg oral tablet) 1 Tablet(s), Oral, once a day LORazepam (LORazepam 0.5 mg oral tablet) See Instructions 1 tab(s) PO 1/2 hour prior to airflight magnesium citrate (magnesium citrate 1.745 g/30 mL oral liquid) 300 Milliliter, Oral, once 5 hours prior to proceedure, drink contents of this bottle with 10 oz of water polyethylene glycol 3350 (MiraLax oral powder for reconstitution) 238 gm, Oral, once Mix one bottle of Miralax with 64 oz of gatorade. Drink an 8 oz glass of solution every 15 min untill gone simvastatin (simvastatin 20 mg oral tablet) 1 Tablet(s), Oral, once a day (at bedtime) Stop Taking the Following Medications: Medication list as of 02-23-17 11:40 Attention: If you have any medications at home that are not on this list, DO NOT take them until youcontact your provider for clarification. Give a copy of your medication list to your primary care provider. Update your medication list any time medications or doses are changed and carry your medication list at all times in case of emergency. 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 Hyperlipidemia Mixed Active Menorrhagia Active Cystocele Midline Active Incontinence Urinary Stress (NIKA) Female Active Your Upcoming Appointments Date Time Location Provider No Appointments found Attention: Contact your local Clinic if further appointment detail needed. Understanding Colon and Rectal Polyps The colon (also called the large intestine) is a muscular tube that forms the last part of the digestive tract. It absorbs water and stores food waste. The colon is about 4 to 6 feet long. The rectum is the last 6 inches of the colon. The colon and rectum have a smooth lining composed of millions of cells. Changes in these cells can lead to growths in the colon that can become cancerous and should beremoved. The colon has a smooth lining composed of millions of cells. When the Colon Lining Changes Changes that occur in the cells that line the colon or rectum can lead to growths called polyps. Over a period of years, polyps can turn cancerous. Removing polyps early may prevent cancer from ever forming. Polyps Polyps are fleshy clumps of tissue that form on the lining of the colon or rectum. Small polyps are usually benign (not cancerous). However, over time, cells in a polyp can change and become cancerous.The larger a polyp grows, the more likely this is to happen. Also, certain types of polyps known as a denomatous polyps are considered premalignant. This means that they will almost always become cancerous if theyre not removed. Cancer Almost all colorectal cancers start when polyp cells begin growing abnormally. As a cancerous tumor grows, it may involve more and more of the colon or rectum. In time, cancer can also grow beyond the colon or rectum and spread to nearby organs or to glands called lymph nodes. The cells can also travel to other parts of the body. This is known as metastasis. The earlier a cancerous tumor is removed, the better the chance of preventing its spread. ?? [id number], [place] [address]. All rights reserved. This information is not intended as a substitute for professional medical care. Always follow your healthcare professional's instructions. Consider Using Patient Online Services Patient Online [...] if you dont have one. Go to [email or web address] and click on Create Your Account. Then, follow the directions to complete the online form. Youll be asked for your [facility] number which you can find at the top of this document. Your Goals/Additional instructions: This document has images extracted. Please consider using [employer] for all your patient education needs. Source: [facility] POWERCHART Document Id: [id number] Miscellaneous - Arabella Davies L.P.N. - 02/23/2017 11:11 AM CDT Ambulatory Vitals Height Weight Ambulatory Vitals Height Weight Entered On: 02/23/2017 11:11 CDT Performed On: 02/23/2017 11:11 CDT by ARABELLA DAVIES LPN Vitals/Ht/Wt Systolic Blood Pressure : 129 mmHg Diastolic Blood Pressure : 72 mmHg NIBP Mean : 91 mmHg ARABELLA DAVIES LPN - 02/23/2017 11:11 CDT [facility] Document Id: [id number] CDT!5 Miscellaneous - Arabella Davies L.P.N. - 02/23/2017 11:07 AM CDT Adult Licensed Appraiser Intake/History Adult Licensed Appraiser Intake/History Entered On: 02/23/2017 11:09 CDT Performed On: 02/23/2017 11:07 CDT by ARABELLA DAVIES LPN Intake Chief Complaint : s/p colon 01/30 Temperature Core : 36.8 DegC(Converted to: 98.2 DegF) Peripheral Pulse Rate : 68 /min Systolic Blood Pressure : 140 mmHg Diastolic Blood Pressure : 65 mmHg NIBP Mean : 90 mmHg ARABELLA DAVIES LPN - 02/23/2017 11:07 CDT General Info Information Given By : Patient Languages : Maori Is Patient Female and 13-50 no hysterectomy : Yes Status : Patient denies Are you ? : No ARABELLA DAVIES LPN - 02/23/2017 11:07 CDT Subjective Pain Symptoms : No ARABELLA DAVIES LPN - 02/23/2017 11:07 CDT Dependent Habits Exposure to Tobacco Smoke : Other: never Smoking Status : Never smoker Tobacco 2A : No Tobacco Use/Currently Using : No Tobacco Use/Last 30 Days : No Tobacco Use/Last 12 months : No ARABELLA ADVIES LPN - 02/23/2017 11:07 CDT Caffeine Use Grid Caffeine Use : None ARABELLA DAVIES LPN - 02/23/2017 11:07 CDT Recreational Drug Use Grid Drug Use : None ARABELLA DAVIES SHEET TURNER - 02/23/2017 11:07 CDT Source: [facility] POWERCHART Document Id: [id number] CDT!29 documented in this encounter Plan of Treatment Not on filedocumented as of this encounter Visit Diagnoses Not on filedocumented in this encounter Additional Health Concerns Assessment Noted Time PHQ-9 Depression Total Score: 4 01/05/2017 10:03 AM CD T documented as of this encounter Care Teams Mixing Machine Tender Cork Gasket Relationship Specialty Start Date End Date Naz Hdez M.D. PCP - General 10/20/16 04/07/19 documented as of this encounter
--- OUTSIDE RECORDS SUMMARY | 2021-12-15 01:20 | XMS_ITS | Encounter Summary ---
:1975 Author Organization [facility] Address [address] [place] [address] Care Team Providers Name Role Phone Naz Hdez M.D. Primary Care Provider Encounter Details Date Type Department Care Team Description 02/20/2018 Orders Only Department of Family Wilma Hdez M.D. Medicine, [facility], [address] [place] [address] [address] [facility] [place] [address] [phone] Social History Tobacco Use Types Packs/Day Years [...] documented as of this encounter Care Teams Prover Relationship Specialty Start Date End Date Naz Hdez M.D. PCP - General 10/20/16 04/07/19 documented as of this encounter
--- OUTSIDE RECORDS SUMMARY | 2021-12-15 01:20 | XMS_ITS | Encounter Summary ---
:1975 Author Organization [facility] Address [address] [place] [address] Care Team Providers Name Role Phone Naz Hdez M.D. Primary Care Provider Encounter Details Date Type Department Care Team Description 01/05/2017 Hospital Encounter HX FBCV FAMILYPRA Wilma Hdez M.D. [address] [place], [place] [address] (Wo rk) Social History Tobacco Use Types Packs/Day Years Used Date Smoking Tobacco: Never Sex Assigned at Date Recorded Not on file documented as of this encounter Medications at Time of Discharge Medication Sig Dispensed Refills Start Date End Date escitalopram (LEXAPRO) 10 Take 1 tablet by 0 12/0801/12/2018 mg tablet mouth daily. documented as of this encounter Miscellaneous Notes Miscellaneous - Yelena Ayers - 03/06/2017 8:20 AM CDT Med Management From: YELENA AYERS ( ison furnitureealth Grommet Machine Operator) To: NAZ HDEZ MD; Sent: 03/06/2017 08:20:18 CDT Subject: Med Management On hold pending signature Order:simvastatin (simvastatin 20 mg oral tablet) 1 tab(s) PO Bedtime Qty: 90 each Refills: 3 Route To Pharmacy - [facility] [id number] Source: [facility] POWERCHART Document Id: [id number] Telephone Encounter - Naz Hdez M.D. - 02/01/2017 12:00 AM CDT [id number] Radiologist notes possible increased thickness of the uterine lining. Card is sent to patient in regards to this finding. Followup with [facility]VIEW[facility] is in place. Naz Hdez M.D./emilys Electronically Signed By: NAZ HDEZ MD On: 02/02/2017 08:06 AM Modified by and Electronically Signed by: NAZ HDEZ MD On: 02/02/2017 08:06 AM Source: [facility] [employer] Document Id: [id number] Telephone Encounter - Naz Hdez M.D. - 01/11/2017 12:00 AM CDT [id number] Fasting glucose 110, triglycerides 195, HDL 43, LDL 101. Refills were sent to her pharmacy. Recheck in terms of labs planned for 12 months. Colonoscopy is in process. Card is sent to patient in regard to this issue. Naz Hdez M.D./fiorella Electronically Signed By: NAZ HDEZ MD On: 01/12/2017 08:18 AM Modified by and Electronically Signed by: NAZ HDEZ MD On: 01/12/2017 08:18 AM Source: [facility] [employer] Document Id: [id number] documented in this encounter Plan of Treatment Not on filedocumented as of this encounter Procedures Procedure Name Priority Date/Time Associated Comments Diagnosis ENDOMYSIAL ABS Routine 01/05/2017 9:32 AM Results for this (IGA), S CDT procedure are i n the results section. PATHOLOGY SCHOLASTIC APTITUDE TEST GRADER Routine 01/05/2017 12:00 AM Results for this CYTOLOGY CDT procedure are i n the results section. documented in this encounter Results Endomysial Antibodies (IgA) (01/05/2017 9:32 AM CDT) Analysis Performed At Patho logist Time Signature Endomysial Negative Negative POWERCHART (FAROOQ) Ab (IgG) screen Comment: A negative serum IgA endomysial antibody is usually seen in normal individuals, however a diagnosis of celiac disease, dermatitis herpetiformis and other glute n sensitive disorders cannot be completely excluded, as this test may be negative in a subset of individuals w ith these disorders. If the clinical suspicion for one of these disorders is high, recommend further eli ting for gluten sensitivity as indicated by the Celiac D isease [facility] [place] ([facility]). In addition serum IgA endomysial antibody m ay also be negative in gluten-sensitive patients (with sujit c disease, dermatitis herpetiformis or other gluten -sensitive disorders), who adhere to a strict glute n-free diet. ADDITIONAL INFORMATIO N This test has been modified from the man ufacturer's instructions. Its performance characteri stics were determined by [facility] in a manner co nsistent with CLIA requirements. This test has not been rhiannon ared or approved by the U.S. Food and Drug Administration. Test Performed by: [address] [address] Specimen (Source) Anatomical Collection Method Collection Time Re ceived Time Location / / Volume Laterality Blood 01/05/2017 9:32 AM CDT Naz Hdez M.D. LAB BLOOD ADD-ON Performing Organization Address City/State/ZIP Code Phon e Number POWERCHART POWERCHART NA HPV with Genotyping, PCR, ThinPrep (01/05/2017 12:00 AM CDT) Specimen (Source) Anatomical Location Collection Method / Collectio n Time Received Time / Laterality Volume Thin Prep Vial Historical Provider LAB MICROBIOLOGY - GENERAL O RDERABLES Pathology SCHOLASTIC APTITUDE TEST GRADER Cytology (01/05/2017 12:00 AM CDT) Specimen (Source) Anatomical Location Collection Method / Collectio n Time Received Time / Laterality Volume 01/05/2017 Narrative [facility] LAB - 01/11/2017 11:35 AM CDT [facility] [place] [address] [place], [place] ??[phone] Patient Name: JANA DUMONT Patient ID #: [id number] Collected: 01/05/2017 Address: [facility]/State/Zip: [address] [place] [address] ??[phone] Received: Reported: 01/05/2017 01/11/2017 Soc. Sec. #: ?/Age/Sex (Age: 41) ??F Physician(s): JEANETH HDEZ MD Copy To: ? [facility] ??[id number] [address] [place] [address], ??[place] ??[address] CYTOPATHOLOGY SCHOLASTIC APTITUDE TEST GRADER REPORT FINAL CYTOLOGIC DIAGNOSIS Pap Smear - ThinPrep with HPV: NEGATIVE FOR INTRAEPITHELIAL LESION OR MALIGNANCY SPARSE TO NO ENDOCERVICAL COMPONENT PRES ENT. SATISFACTORY SPECIMEN FOR EVALUATION. Electronically Signed Out By amb/01/11/[address](ASCP) DL Streich CT(ASCP) The Pap test is a screening procedure [...] that may occur. Procedures/Addenda: HUMAN PAPILLOMA VIRUS ADDENDUM ? Dano e Ordered: ? 01/05/2017 ? Status: ??Signed Out Date Complete: ? 01/11/2017 ? By: ??DL Streich CT(ASCP) Date Reported: ? 01/11/2017 INTERPRETATION: Test: Aptima High Risk HPV Result: NEGATIVE FOR HIGH RISK HPV Specimen Description: ThinPrep? ?? Pap Test PreservCyt Solution HPV by Sole Trimmer-Mediated Amplificat ion (TMA) for E6/E7 viral messenger [...] cancer. SPECIMEN(S) RECEIVED: Pap Smear - ThinPrep with HPV CLINICAL HISTORY: PREVIOUS ABNORMAL BIOPSY Date of Last Menstrual Period: 12/26/2016 Hormonal History: No hormonal therapy Other Clinical Conditions: HPV TYPING REQUESTED Naz Hdez M.D. LAB PAP COPATH ORDERABLES Performing Organization Address City/State/ZIP Code Phon e Number [facility] LAB documented in this encounter Visit Diagnoses Not on filedocumented in this encounter Additional Health Concerns Assessment Noted Time PHQ-9 Depression Total Score: 4 01/05/2017 10:03 AM CD T documented as of this encounter Care Teams Hoop Maker Relationship Specialty Start Date End Date Naz Hdez M.D. PCP - General 10/20/16 04/07/19 documented as of this encounter
--- OUTSIDE RECORDS SUMMARY | 2021-12-15 01:20 | XMS_ITS | Encounter Summary ---
:1975 Author Organization [facility] Address [address] [place] [address] Care Team Providers Name Role Phone Naz Hdez M.D. Primary Care Provider Encounter Details Date Type Department Care Team Description 01/31/2017 Hospital Encounter HX [facility] FBCV ULTRASOUND Wilma Hdez M.D. [address] [place], [place] [address] (Wo rk) Social History Tobacco Use Types Packs/Day Years Used Date Smoking Tobacco: Never Sex Assigned at Date Recorded Not on file documented as of this encounter Last Filed Vital Signs Vital Sign Reading Time Taken Comments Blood Pressure - - Pulse - - Temperature - - Respiratory Rate - - Oxygen Saturation - - Inhaled Oxygen Concentration - - Weight - - Height 163 cm (5' 4.17) 01/31/2017 3:22 PM CDT Body Mass Index - - documented in this encounter Medications at Time of Discharge Medication Sig Dispensed Refills Start Date End Date cetirizine (ZyrTEC) 10 Take 1 tablet by 0 017 02/05/2018 mg tablet mouth daily as needed. For allergies escitalopram (LEXAPRO) Take 1 tablet by 0 017 01/12/2018 10 mg tablet mouth daily. documented as of this encounter Nursing Notes Chandler Younger L.PPeymanN. - 02/01/2017 2:36 PM CDT 01-31-17 Result card sent per Dr. Hdez. Electronically Signed By: CHANDLER YOUNGER LPN On: 02/01/2017 02:37 PM Source: [facility] POWERCHART Document Id: [id number] documented in this encounter Plan of Treatment Not on filedocumented as of this encounter Procedures Procedure Name Priority Date/Time Associated Comments Diagnosis US PELVIS TRANSVAGINAL Routine 01/31/2017 3:29 PM Results for this AND TRANSABDOMINAL CDT procedure are in the results section. documented in this encounter Results US Pelvis Transvaginal and Transabdominal (01/31/2017 3:29 PM CDT) Anatomical Region Laterality Modality Pelvis N/A Ultrasound Specimen (Source) Anatomical Collection Method Collection Time Re ceived Time Location / / Volume Laterality 01/31/2017 3:29 PM CDT Addenda Addendum by Provider, Dalila Faustin 01/31/2017 3:29 PM CDT RAD^^^OW US Pelvic And Endovaginal 01/31/2017 15:29:48 US Pelvic And Endovaginal Impressions 01/31/2017 4:30 PM CDT ?? 1. Endometrial thickness (11 mm), may be related to menstrual timing. Alternatively in the setting of long-sta nding heavy menses, could consider endometrial sampling. 2. Located within the right adnexal aminta on there is an extraovarian approximately 9 mm x 5 mm x 7 mm adnexal cyst, of doubtfully acute clinical significance. Narrative 01/31/2017 4:30 PM CDT EXAM: ??US Pelvic And Endovaginal AGE: ??41 years old. GENDER: ??Female. INDICATION: ??menorrhagia,prolapse COMPARISON: ??None. ?? FINDINGS: ?? Uterus: 7.9 cm x 5.5 cm x 4.7 cm. Endometrial thickness (11 mm), may be re lated to menstrual timing. Alternatively in the setting of long-sta nding heavy menses, could consider endometrial sampling. Right ovary: 1.5 cm x 2.2 cm x 2.6 cm. Located within the right adnexal region there is an extraovarian approximately 9 mm x 5 mm x 7 mm adnexal cyst, of doubtfully acute clinical significance. Doppler blood flow is present to the rig ht ovary. Left ovary: 1.4 cm x 2.5 cm x 2.1 cm. Do ppler blood flow is present to the left ovary. Procedure Note Kush Brown M.D. / Provider, Dipti paz M.D. - 02/16/2017 EXAM: US Pelvic And Endovaginal AGE: [age] years old. GENDER: Female. INDICATION: menorrhagia,prolapse COMPARISON: None. FINDINGS: Uterus: 7.9 cm x 5.5 cm x 4.7 cm. Endometrial thickness (11 mm), may be re lated to menstrual timing. Alternatively in the setting of long-sta nding heavy menses, could consider endometrial sampling. Right ovary: 1.5 cm x 2.2 cm x 2.6 cm. Located within the right adnexal region there is an extraovarian approximately 9 mm x 5 mm x 7 mm adnexal cyst, of doubtfully acute clinical significance. Doppler blood flow is present to the rig ht ovary. Left ovary: 1.4 cm x 2.5 cm x 2.1 cm. Do ppler blood flow is present to the left ovary. IMPRESSION: 1. Endometrial thickness (11 mm), may be related to menstrual timing. Alternatively in the setting of long-sta nding heavy menses, could consider endometrial sampling. 2. Located within the right adnexal aminta on there is an extraovarian approximately 9 mm x 5 mm x 7 mm adnexal cyst, of doubtfully acute clinical significance. Miladis Dale R.V.T., NegarSPeyman IMG US PROCEDURES documented in this encounter Visit Diagnoses Not on filedocumented in this encounter Additional Health Concerns Assessment Noted Time PHQ-9 Depression Total Score: 4 01/05/2017 10:03 AM CD T documented as of this encounter Care Teams Lip Cutter Relationship Specialty Start Date End Date Naz Hdez M.D. PCP - General 10/20/16 04/07/19 documented as of this encounter
--- OUTSIDE RECORDS SUMMARY | 2021-12-15 01:20 | XMS_ITS | Encounter Summary ---
:1975 Author Organization [facility] Address [address] [place] [address] Care Team Providers Name Role Phone Naz Hdez M.D. Primary Care Provider Encounter Details Date Type Department Care Team Description 02/08/2017 Hospital Encounter HX [facility] OWOC MAMMO Anastasiia Hdez M.D. [address] [place], [place] [address] (Wo rk) Social History [...] - - Height 163 cm (5' 4.17) 02/08/2017 2:31 PM CDT Body Mass Index - - documented in this encounter Medications at Time of Discharge Medication Sig Dispensed Refills Start Date End Date cetirizine (ZyrTEC) 10 Take 1 tablet by 0 017 02/05/2018 mg tablet mouth daily as needed. For allergies escitalopram (LEXAPRO) Take 1 tablet by 0 017 01/12/2018 10 mg tablet mouth daily. documented as of this encounter Plan of Treatment Not on filedocumented as of this encounter Procedures Procedure Name Priority Date/Time Associated Comments Diagnosis BI BREAST DIAGNOSTIC Routine 02/08/2017 2:57 PM R esults for this RIGHT WITH CDT procedure are i n TOMOSYNTHESIS the results section. documented in this encounter Results BI Breast Diagnostic Right with Tomosynthesis (02/08/2017 2:57 PM CDT) Anatomical Region Laterality Modality Breast Right Mammography Specimen (Source) Anatomical Collection Method Collection Time Re ceived Time Location / / Volume Laterality 02/08/2017 2:57 PM CDT Impressions 02/08/2017 2:59 PM CDT Negative. No mammographic findings of malignancy. RECOMMENDATION: Annual screening mammogr aphy. BI-RADS ASSESSMENT: CODE: 1-NEGATIVE Appropriate letter sent. Full field digital mammography is used a nd Computer Aided Detection is performed on the digital mammogram image s. Narrative 02/08/2017 2:59 PM CDT EXAM: MA Digital Unilat Right Mammo w/ T jumana INDICATION: RT asymmetry ? COMPARISON: Prior exams were available f or comparison. HISTORY: ??Recall from screening. ? DENSITY: c. The breasts are heterogeneou sly dense, which may obscure small masses. FINDINGS: Right diagnostic mammogram inc luding full field CC and MLO tomosynthesis and a 2-D ML view was perf ormed for further evaluation of a focal asymmetry identified on recen t screening mammogram. Images demonstrate that the asymmetry does not persist and represented overlapping fibroglandular tissue. No ar chitectural distortion. No mammographic findings of malignancy. Procedure Note Liudmila Garcia M.D. - 02/16/2017Forma tting of this note might be different from the original. EXAM: MA Digital Unilat Right Mammo w/ T jumana INDICATION: RT asymmetry COMPARISON: Prior exams were available f or comparison. HISTORY: Recall from screening. DENSITY: c. The breasts are heterogeneou sly dense, which may obscure small masses. FINDINGS: Right diagnostic mammogram inc luding full field CC and MLO tomosynthesis and a 2-D ML view was perf ormed for further evaluation of a focal asymmetry identified on recen t screening mammogram. Images demonstrate that the asymmetry does not persist and represented overlapping fibroglandular tissue. No ar chitectural distortion. No mammographic findings of malignancy. IMPRESSION: Negative. No mammographic fi ndings of malignancy. RECOMMENDATION: Annual screening mammogr aphy. BI-RADS ASSESSMENT: CODE: 1-NEGATIVE Appropriate letter sent. Full field digital mammography is used a nd Computer Aided Detection is performed on the digital mammogram image s. Mecca Collins(R), Karina(R)(M) IMG BI PROCEDURES documented in this encounter Visit Diagnoses Not on filedocumented in this encounter Additional Health Concerns Assessment Noted Time PHQ-9 Depression Total Score: 4 01/05/2017 10:03 AM CD T documented as of this encounter Care Teams Statistical Methods Teacher Relationship Specialty Start Date End Date Naz Hdez M.D. PCP - General 10/20/16 04/07/19 documented as of this encounter
--- OUTSIDE RECORDS SUMMARY | 2021-12-15 01:20 | XMS_ITS | Encounter Summary ---
:1975 Author Organization [facility] Address [address] [place] [address] Care Team Providers Name Role Phone Naz Hdez M.D. Primary Care Provider Encounter Details Date Type Department Care Team Description 01/05/2017 Hospital Encounter HX NO MAPPING Naz Hdez M.D. [address] [place] [address] (Wo rk) Social History Tobacco [...] Miscellaneous - Conversion, Historical Provider Ser - 01/05/2017 11:59 PM CDT Coding Summary-Paper Based CODING DATE: 01/13/2017 FINAL [facility] STATUS: * Discharged to Home or Self Care PAYOR: [employer] ADMIT DX: REASON FOR VISIT DX: FINAL DX: PRINCIPAL: Z12.4 Encounter for screening for malignant neoplasm of cervix SECONDARY: PROCEDURES DOCTOR NAME DATE NOTE: The code number assigned matches the documented diagnosis and / or procedure in the patient's chart. However, the narrative phrase printed from the coding software may appear abbreviated, or result in slightly different terminology. Coded By: CHAVEZ WALLACE Date Saved: 01/13/2017 01:43 pm Source: [facility] Document Id: [id number] documented in this encounter Plan of Treatment Not on filedocumented as of this encounter Visit Diagnoses Not on filedocumented in this encounter Additional Health Concerns Assessment Noted Time PHQ-9 Depression Total Score: 4 01/05/2017 10:03 AM CD T documented as of this encounter Care Teams Milieu Counselor Relationship Specialty Start Date End Date Naz Hdez M.D. PCP - General 10/20/16 04/07/19 documented as of this encounter
--- OUTSIDE RECORDS SUMMARY | 2021-12-15 01:20 | XMS_ITS | Encounter Summary ---
:1975 Author Organization [facility] Address [address] [place] [address] Care Team Providers Name Role Phone Naz Hdez M.D. Primary Care Provider Reason for Visit Reason Comments Med Refill Encounter Details Date Type Department Care Team Description 03/26/2018 Refill Department of Family Medicine, Naz park M.D. Med Refill [facility], in [address] [place] [id number] [place] [address] [place] [address] [phone] Social History Tobacco Use Types Packs/Day Years [...] documented as of this encounter Care Teams Lawyer Criminal Relationship Specialty Start Date End Date Naz Hdez M.D. PCP - General 10/20/16 04/07/19 documented as of this encounter
--- OUTSIDE RECORDS SUMMARY | 2021-12-15 01:20 | XMS_ITS | Encounter Summary ---
:1975 Author Organization [facility] Address [address] [place] [address] Care Team Providers Name Role Phone Naz Hdez M.D. Primary Care Provider Encounter Details Date Type Department Care Team Description 02/01/2017 Hospital Encounter HX NO MAPPING Pablo Hylton M.D. Social History Tobacco Use Types Packs/Day [...] Miscellaneous - Conversion, Historical Provider Ser - 02/01/2017 11:59 PM CDT Coding Summary-Paper Based CODING DATE: 02/10/2017 FINAL [facility] STATUS: * Discharged to Home or Self Care PAYOR: [employer] ADMIT DX: REASON FOR VISIT DX: FINAL DX: PRINCIPAL: N85.00 Endometrial hyperplasia, unspecified SECONDARY: PROCEDURES DOCTOR NAME DATE NOTE: The code number assigned matches the documented diagnosis and / or procedure in the patient's chart. However, the narrative phrase printed from the coding software may appear abbreviated, or result in slightly different terminology. Coded By: CHAVEZ WALLACE Date Saved: 02/10/2017 08:45 am Source: [facility]ITAL[facility] Document Id: [id number] documented in this encounter Plan of Treatment Not on filedocumented as of this encounter Visit Diagnoses Not on filedocumented in this encounter Additional Health Concerns Assessment Noted Time PHQ-9 Depression Total Score: 4 01/05/2017 10:03 AM CD T documented as of this encounter Care Teams Electric Motor Fitter Relationship Specialty Start Date End Date Naz Hdez M.D. PCP - General 10/20/16 04/07/19 documented as of this encounter
--- OUTSIDE RECORDS SUMMARY | 2021-12-15 01:20 | XMS_ITS | Encounter Summary ---
:1975 Author Organization [facility] Address [address] [place] [address] Care Team Providers Name Role Phone Naz Hdez M.D. Primary Care Provider Encounter Details Date Type Department Care Team Description 11/16/2017 Orders Only Department of Family Naz Hdez Scr eening Mammogram MedicineSkinny M.D. [facility], in [place] [address] (Primary Dx) [place], [place] [address] [address] [place], [place] [phone] [address] (Work) [phone] Social History Tobacco Use Types Packs/Day Years Used Date Smoking Tobacco: Never Sex Assigned at Date Recorded Not on file documented as of this encounter Plan of Treatment Not on filedocumented as of this encounter Visit Diagnoses Diagnosis Screening Mammogram Average Risk Patient - Primary documented in this encounter Additional Health Concerns Assessment Noted Time PHQ-9 Depression Total Score: 4 01/05/2017 10:03 AM CD T documented as of this encounter Care Teams Home Health Rn Relationship Specialty Start Date End Date Naz Hdez M.D. PCP - General 10/20/16 04/07/19 documented as of this encounter
--- OUTSIDE RECORDS SUMMARY | 2021-12-15 01:20 | XMS_ITS | Encounter Summary ---
:1975 Author Organization [facility] Address [address] [place] [address] Care Team Providers Name Role Phone Naz Hdez M.D. Primary Care Provider Encounter Details Date Type Department Care Team Description 01/12/2018 Orders Only Department of Family Wilma Hdez M.D. Medicine, [facility], [address] [place] [address] [address] [facility] [place] [address] [phone] Social History Tobacco Use Types Packs/Day Years [...] documented as of this encounter Care Teams Cmo Relationship Specialty Start Date End Date Naz Hdez M.D. PCP - General 10/20/16 04/07/19 documented as of this encounter
--- OUTSIDE RECORDS SUMMARY | 2021-12-15 01:20 | XMS_ITS | Encounter Summary ---
:1975 Author Organization [facility] Address [address] [place] [address] Care Team Providers Name Role Phone Unavailable Primary Care Provider Unavailable Encounter Details Date Type Department Care Team Description 12/31/2015 Hospital Encounter HX [facility] Jarad Hdez M.D. [address] [place], [place] [address] (Wo rk) Social History Tobacco Use Types Packs/Day Years Used Date Smoking Tobacco: Never Assessed Sex Assigned at Date Recorded Not on file documented as of this encounter Last Filed Vital Signs Vital Sign Reading Time Taken Comments Blood Pressure 120/72 12/31/2015 10:21 AM CDT Pulse 76 12/31/2015 10:21 AM CDT Temperature - - Respiratory Rate 12 12/31/2015 10:21 AM CDT Oxygen Saturation - - Inhaled Oxygen Concentration - - Weight 103 kg (227 lb 4.7 oz) 12/31/2015 10:21 AM CDT Height 162.5 cm (5' 3.98) 12/31/2015 10:21 AM CDT Body Mass Index 39.04 12/31/2015 10:21 AM CDT documented in this encounter H&P Notes Naz Hdez M.D. - 12/31/2015 9:57 AM CDT [id number] CHIEF COMPLAINT/REASON FOR VISIT Annual exam. HISTORY OF PRESENT ILLNESS A 40-year-old female presents to clinic for annual evaluation. She is fasting. She is having a bit more anxiety but it is primarily related to the fact her bowels have changed. She will have loose explosive stools with a feeling of extreme pain, watery in nature, about 3 times per day. It has been going on near daily for months. Will feel dizzy, somewhat sweaty, during these episodes. She has had 2 anxiety attacks when she has had these events. She has noted really no change with dietary intake, time of day, or quality of food. Has not had any emesis. Has not had any weight loss but it is definitely interrupting her activities of daily living. She did have an event happen after drinking a soda andshe has discontinued this product. She is taking all of her medicines as before. Her menstrual cyclehas become a bit irregular. It continues to be monthly, heavy for the first few days, will stop and then restart, lasting about a week in duration. Significant other has had a vasectomy. Has regular dental exams last being November 2015. Goes every 6 months. Sees a vendor specialist for history of skin cancers every 6 months, last being June 2015. Had a regular ophthalmologic evaluation in September 2015. No true urinary symptoms. She has never been told she had hypothyroidism but is wondering if this might be playing a role. EMR reviewed. MEDICATIONS 1. Simvastatin 20 mg each day. 2. Loratadine 10 mg daily as needed. 3. Lexapro 10 mg daily. ALLERGIES No known drug allergies. SYSTEMS REVIEW CONSTITUTIONAL: Slow weight gain over the years. No fevers, chills or night sweats. No change in herenergy. EYES: See the HPI. No blurred or double vision and no eye pain. ENT: See the HPI. No hearingloss, no tinnitus, no ear pain, no dizziness, no nasal congestion, no sore throat and no hoarseness.CARDIOVASCULAR: See the HPI and the Past Medical/Surgical History. No palpitations, no ankle edema, no true claudication and no chest pain. RESPIRATORY: No cough, no wheezing, no hemoptysis and no shortness of breath. GASTROINTESTINAL: See the HPI and the Past Medical/Surgical History. No abdominal pain and no heartburn. No problems with dysphagia, hematemesis. No hematochezia and no problems with hemorrhoids. GENITOURINARY: No pain with urination. No urinary frequency. See the HPI. Spouse has had avasectomy. No vaginal discharge. No history of abnormal Pap smears. No concerns regarding sexually transmitted diseases. MUSCULOSKELETAL: No back, neck or joint pain. No swelling or stiffness. No myalgias or weakness. INTEGUMENTARY: Does self breast exams. No changes in skin lesions, hair or nails. NEUROLOGIC: No history of syncopal events or seizures. PSYCHIATRIC: See the HPI and the Past Medical/Surgical History. ENDOCRINE: See the HPI and the Past Medical/Surgical History. No history of diabetes or thyroid problems. HEMATOLOGIC/LYMPHATIC: See the HPI and the Past Medical/Surgical History. ALLERGIC/IMMUNOLOGIC: Please see above. PAST MEDICAL/SURGICAL HISTORY SURGERIES: 1. Basal cell carcinoma removed from the right breast and other areas on her body 2004. Follows Som Mancuso M.D. last being followed 06/2015, going every 6 months. 2. Colposcopy secondary to abnormal Pap smear with no recurrence 1996. OTHER HOSPITALIZATIONS: G2, P2 vaginal delivery. OTHER MAJOR ILLNESSES: 1. Premenstrual syndrome with anxiety and depression. 2. Hyperlipidemia. 3. Overweight. 4. History of basal cell carcinoma followed by vendor specialist, Dr. Phyllis Mancuso. 5. Impaired fasting glucose in 2008 currently stable. 6. Palpitations. 7. Stress incontinence. 8. 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 PREVENTIVE SERVICES Tobacco use: None. Mammogram: Patient checking for insurance coverage. Pap smear: 12/31/2015. Chlamydia: Non applicable secondary to stated age. Colon screening: Non applicable secondary to stated age. Depression: Yes, PHQ-9 score 4. Asthma: No. Lipids: 12/18/2014. Tetanus: 05/03/2010. Pneumovax: Non applicable secondary to stated age. Influenza: Declined. DEXA scan: Non applicable secondary to stated age. SOCIAL HISTORY Alcohol: Three times per year. No other social drugs. Caffeine: Rare. Wears a seatbelt. Tries to follow a healthy diet. Last breast exam: 2014. Calcium intake: Adequate. Exercises with Curves 3 times per week and walks 10,000 steps near daily. Has a Fitbit. FAMILY HISTORY Mother has hyperlipidemia status post an [place] at age 47. Father status post melanoma [...] children in good health. VITAL SIGNS Height 162.5 cm, weight 103.1 kg. Temperature 36.5, respiratory rate 12, pulse 76, systolic 120, diastolic 72. PHYSICAL EXAMINATION GENERAL: Neatly dressed and well groomed and in no apparent distress. SKIN: Solar changes in a sun wear distribution. A number of well-healed biopsy sites. HEAD: No trauma, tenderness or masses. EYES: Conjunctiva clear. PERRL. Full EOM. Funduscopic exam grossly normal. ENT: [...] aorta is not prominent but exam is limited secondary to body habitus. No ankle edema. No varicosities. LUNGS: Clear to auscultation. No palpable chest wall masses. ABDOMEN: Soft and nontender. Bowel sounds present. No organomegaly although exam is limited secondary to body habitus. PELVIS: No bony abnormalities. RECTUM: Patent anus. Good sphincter tone. No hemorrhoids. Hemoccult negative stool in the vault. GENITALIA: External genitalia appropriate for stated age. Urethral meatus free from lesions. Supple vaginal vault. Nulliparous-appearing cervix. Pap smear with spatula and cytobrush obtained with some friability. Uterus freely mobile, no nodularity. Adnexa free from nodules and nontender. No tenderness with either speculum or bimanual [...] 2+ in triceps, biceps, knees and ankles. IMPRESSION/REPORT/PLAN 1. Annual exam. 2. History of a positive PPD with treatment with INH. 3. Hyperlipidemia. 4. Hyperglycemia. 5. History of skin cancer. 6. History of abnormal Pap smears with colposcopy. 7. Menorrhagia. 8. Diarrhea. 9. Generalized abdominal pain. 10. Anxiety with depression. PLAN: Will recommend checking laboratory evaluation with a CBC, urinalysis, basic metabolic profile,AST, lipid profile, TSH, endomysial antibody, tissue transglutaminase, following up accordingly. Follow up the ThinPrep as well. She will check with her insurance in terms of coverage for the mammogram. Will likely need additional followup and may or may not need evaluation with GI. May need to consider a colonoscopy. Follow up with her specialty care providers as noted. Spent additional 15 minutes discussing her acute care needs. Reviewed exercise, cholesterol, diet/weight loss, calcium intake, alcohol use, immunizations, tobacco use, caffeine use, self-breast exams, mammography, colonic studies including colonoscopy or FIT testing, hormone replacement therapy as appropriate, seatbelt use, back care, depression, eye exams and other issues. Follow up if any change occurs or as noted. Naz Hdez M.D./fiorella Electronically Signed By: NAZ HDEZ MD On: 01/04/2016 07:35 AM Modified by and Electronically Signed by: NAZ HDEZ MD On: 01/04/2016 07:35 AM Source: [facility] MHSDOLBEYNONRADSYS Document Id: [id number] documented in this encounter Nursing Notes Velia Younger L.P.N. - 01/18/2016 4:59 PM CDT Lab 8-25-16 Result card sent. Electronically Signed By: VELIA YOUNGER LPN On: 01/18/2016 05:00 PM Source: [facility] POWERCHART Document Id: [id number] Velia Younger L.P.N. - 01/18/2016 4:59 PM CDT Lab 12-31-15 Result card sent. Electronically Signed By: VELIA YOUNGER LPN On: 01/18/2016 05:00 PM Source: [facility] [employer] Document Id: [id number] Velia Younger L.P.N. - 01/05/2016 1:04 PM CDT Lab 12-31-15 Result card sent. Electronically Signed By: VELIA YOUNGER LPN On: 01/05/2016 01:04 PM Source: [facility] [employer] Document Id: [id number] Velia Younger L.P.N. - 01/05/2016 1:04 PM CDT Lab 12-31-15 Result card sent. Electronically Signed By: VELIA YOUNGER LPN On: 01/05/2016 01:04 PM Source: [facility] [employer] Document Id: [id number] documented in this encounter Miscellaneous Notes Telephone Encounter - Conversion, Historical Provider Ser - 07/04/2016 11:29 AM CST *Phone Message Document Contains Addenda Addendum by VELIA YOUNGER LPN on July 04, 2016 14:07:15 COMMERCIAL FISHING VESSEL OPERATOR Attempted to call, left a message to call back. Rx faxed to [facility]. From: DEVONTE CHAPMAN ( Family Med 2E Nurse) To: SUBHASH Hdez Nurse; Sent: 07/04/2016 11:29:02 COMMERCIAL FISHING VESSEL OPERATOR Subject: *Phone Message Caller is: ( x ) Patient ( ) Mother ( ) Father ( ) Spouse ( ) Daughter ( ) Son ( ) Pharmacy ( ) Other: Physician: Patient MRN #: Reason for Call: Message: Patient called in and is flying on she has great anxiety about flying and is wondering if there is something to help. She still uses [employer] and would like a call back at [phone] Advice/Action: Source used: ( ) Verbalizes understanding of instructions ( ) Instructed to call back if symptoms worsen or do not resolve ( ) Refused to see provider ( ) Appointment Scheduled ( ) OK to leave message on voice mail ( ) Patient told to expect return call: ( ) today ( ) tomorrow ( ) next work day ( ) Patient's email ( ) Patient told physician out of office, will call upon return call on ( ) ( ) Patient told physician out of office, routed to other physician ( ) Other ( ) Call back telephone number ( ) Call back cell phone number ( ) Source: [facility] POWERCHART Document Id: [id number] Telephone Encounter - Conversion, Historical Provider Ser - 07/04/2016 11:29 AM CST *Phone Message Document Contains Addenda Addendum by VELIA YOUNGER LPN on July 04, 2016 14:07:15 COMMERCIAL FISHING VESSEL OPERATOR Attempted to call, left a message to call back. [facility] From: DEVONTE CHAPMAN ( Family Med 2E Nurse) To: SUBHASH Hdez Nurse; Sent: 07/04/2016 11:29:02 COMMERCIAL FISHING VESSEL OPERATOR Subject: *Phone Message Caller is: ( x ) Patient ( ) Mother ( ) Father ( ) Spouse ( ) Daughter ( ) Son ( ) Pharmacy ( ) Other: Physician: Patient MRN #: Reason for Call: Message: Patient called in and is flying on she has great anxiety about flying and is wondering if there is something to help. She still uses [employer] and would like a call back at [phone] Advice/Action: Source used: ( ) Verbalizes understanding of instructions ( ) Instructed to call back if symptoms worsen or do not resolve ( ) Refused to see provider ( ) Appointment Scheduled ( ) OK to leave message on voice mail ( ) Patient told to expect return call: ( ) today ( ) tomorrow ( ) next work day ( ) Patient's email ( ) Patient told physician out of office, will call upon return call on ( ) ( ) Patient told physician out of office, routed to other physician ( ) Other ( ) Call back telephone number ( ) Call back cell phone number ( ) Source: [facility] [employer] Document Id: [id number] ERCIAL FISHING VESSEL OPERATOR Miscellaneous - Naz Hdez M.D. - 12/31/2015 12:49 PM CDT Ambulatory Discharge Medication List [address] [place], [place] [id number] Visit Information Name: JANA DUMONT [facility] Number: [id number] Visit Date: 12/31/2015 12:49:01 Attending Provider: NAZ HDEZ MD Primary Care [...] Take Indications/Special Instructions/Comments/Notes for Patient Medication Changes/Routing cetirizine (ZyrTEC 10 mg oral tablet) 1 Tablet(s), Oral, once a day as needed for allergi [facility] [address] [place], [place] [id number] escitalopram (Lexapro 10 mg oral tablet) 1 Tablet(s), Oral, once a day simvastatin (simvastatin 20 mg oral tablet) 1 Tablet(s), Oral, once a day (at bedtime) Stop Taking the Following Medications: Medication list as of 12-31-15 12:49 Attention: If you have any medications at [...] Electronically Signed By: NAZ HDEZ MD Signed On:31-DEC-2015 12:48:54 Additional Information: Source: [facility] POWERCHART Document Id: [id number] Miscellaneous - Naz Hdez M.D. - 12/31/2015 12:49 PM CDT Ambulatory Patient Summary [address] [place], [place] [phone] Visit Information Name: JANA DUMONT [facility] Number: [id number] Current Date: 12/31/2015 12:49:02 Physicians Attending Provider: NAZ HDEZ MD Primary [...] Take Indications/Special Instructions/Comments/Notes for Patient Medication Changes/Routing cetirizine (ZyrTEC 10 mg oral tablet) 1 Tablet(s), Oral, once a day as needed for allergi [facility] [address] [place], [place] [phone] escitalopram (Lexapro 10 mg oral tablet) 1 Tablet(s), Oral, once a day simvastatin (simvastatin 20 mg oral tablet) 1 Tablet(s), Oral, once a day (at bedtime) Stop Taking the Following Medications: Medication list as of 12-31-15 12:49 Attention: If you have any medications at [...] Electronically Signed By: NAZ HDEZ MD Signed On:31-DEC-2015 12:48:54 Your Allergies & Intolerances Substance Reaction Symptoms [...] Body Mass Index (BMI) 30-40 Adult Active Obesity Body Mass Index (BMI) 30-39.9 Adult Active Abnormal Pap Smear Pers Hx Active Depression Anxiety Active Your Upcoming Appointments Date Time Location [...] if you dont have one. Go to [email or web address] and click on Create Your Account. Then, follow the directions to complete the online form. Youll be asked for your [facility] number which you can find at the top of this document. Your Goals/Additional instructions: Source: [facility] POWERCHART Document Id: [id number] Miscellaneous - Naz Hdez M.D. - 12/31/2015 12:49 PM CDT Ambulatory Discharge Medication List [address] [place], [place] [phone] Visit Information Name: JANA DUMONT [facility] Number: [id number] Visit Date: 12/31/2015 12:49:01 Attending Provider: NAZ HDEZ MD Primary Care [...] Take Indications/Special Instructions/Comments/Notes for Patient Medication Changes/Routing cetirizine (ZyrTEC 10 mg oral tablet) 1 Tablet(s), Oral, once a day as needed for allergi [facility] [address] [place], [place] [phone] escitalopram (Lexapro 10 mg oral tablet) 1 Tablet(s), Oral, once a day simvastatin (simvastatin 20 mg oral tablet) 1 Tablet(s), Oral, once a day (at bedtime) Stop Taking the Following Medications: Medication list as of 12-31-15 12:49 Attention: If you have any medications at [...] Electronically Signed By: NAZ HDEZ MD Signed On:31-DEC-2015 12:48:54 Additional Information: Source: [facility] POWERCHART Document Id: [id number] Miscellaneous - Naz Hdez M.D. - 12/31/2015 12:49 PM CDT Ambulatory Patient Summary [address] [place], [place] [id number] Visit Information Name: JANA DUMONT [facility] Number: [id number] Current Date: 12/31/2015 12:49:02 Physicians Attending Provider: NAZ HDEZ MD Primary [...] Take Indications/Special Instructions/Comments/Notes for Patient Medication Changes/Routing cetirizine (ZyrTEC 10 mg oral tablet) 1 Tablet(s), Oral, once a day as needed for allergi [facility] [address] [place], [place] [phone] escitalopram (Lexapro 10 mg oral tablet) 1 Tablet(s), Oral, once a day simvastatin (simvastatin 20 mg oral tablet) 1 Tablet(s), Oral, once a day (at bedtime) Stop Taking the Following Medications: Medication list as of 12-31-15 12:49 Attention: If you have any medications at [...] Electronically Signed By: NAZ HDEZ MD Signed On:31-DEC-2015 12:48:54 Your Allergies & Intolerances Substance Reaction Symptoms [...] Body Mass Index (BMI) 30-40 Adult Active Obesity Body Mass Index (BMI) 30-39.9 Adult Active Abnormal Pap Smear Pers Hx Active Depression Anxiety Active Your Upcoming Appointments Date Time Location [...] if you dont have one. Go to [email or web address] and click on Create Your Account. Then, follow the directions to complete the online form. Youll be asked for your [facility] number which you can find at the top of this document. Your Goals/Additional instructions: Source: [facility] POWERCHART Document Id: [id number] Miscellaneous - Naz Hdez M.D. - 12/31/2015 12:37 PM CDT PHQ-9 PHQ-9 Entered On: 12/31/2015 12:38 CDT Performed On: 12/31/2015 12:37 CDT by NAZ HDEZ MD PHQ-9 Little [...] difficult at all NAZ HDEZ MD - 12/31/2015 12:37 CDT Source: [employer] Document Id: [id number] CDT!13 Sammy - Naz Hdez M.D. - 12/31/2015 12:37 PM CDT PHQ-9 PHQ-9 Entered On: 12/31/2015 12:38 CDT Performed On: 12/31/2015 12:37 CDT by NAZ HDEZ MD PHQ-9 Little [...] difficult at all NAZ HDEZ MD - 12/31/2015 12:37 CDT Source: [employer] Document Id: [id number] CDT!13 Sammy - Velia Younger L.P.N. 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 [employer]igger [employer]isan Intake/History Entered On: 12/31/2015 10:23 CDT Performed On: 12/31/2015 10:21 CDT by VELIA YOUNGER LPN Intake Chief Complaint : physical Temperature Core : 36.5 DegC(Converted to: 97.7 DegF) Peripheral Pulse Rate : 76 /min Respiratory Rate : 12 /min (LOW) Systolic Blood Pressure : 120 mmHg Diastolic Blood Pressure : 72 mmHg NIBP Mean : 88 mmHg BP Location : Left upper extremity Blood Pressure Cuff Size : Regular Height : 162.5 cm(Converted to: 5 ft 4 inch(es), 64 inch(es)) Actual Weight : 103.1 kg(Converted to: 227 lb 5 oz) Dosing Weight Clinic : 103.1 kg Clinic BSA : 2.16 Body Mass Index : 39.04 kg/m2 VELIA YOUNGER LPN - 12/31/2015 10:21 CDT General Info Languages : Bangladeshi Is Patient Female and 13-50 no hysterectomy : Yes Status : Patient denies Are you ? : No VELIA YOUNGER LPN - 12/31/2015 10:21 CDT Subjective Pain Symptoms : No VELIA YOUNGER LPN - 12/31/2015 10:21 CDT Dependent Habits Exposure to Tobacco Smoke : Other: never Smoking Status : Never smoker Tobacco 2A : No Tobacco Use/Currently Using : No Tobacco Use/Last 30 Days : No Tobacco Use/Last 12 months : No VELIA YOUNGER LPN - 12/31/2015 10:21 CDT Caffeine Use Grid Caffeine Use : None VELIA YOUNGER LPN - 12/31/2015 10:21 CDT Recreational Drug Use Grid Drug Use : None VELIA YOUNGER LPN - 12/31/2015 10:21 CDT [facility] Document Id: [id number] CDT!36 Miscellaneous - Velia Younger L.PPeymanNPeyman - 12/31/2015 10:21 AM CDT Health Assessment Health Assessment Entered On: 12/31/2015 10:24 CDT Performed On: 12/31/2015 10:21 CDT by VELIA YOUNGER LPN Health Assessment Complete Health Assessment Complete or Modified : Annual Health Assessment Annual Health Assessment Completed : Yes VELIA YOUNGER LPN - 12/31/2015 10:21 CDT Nutrition Nutrition Risk Factors by History Adult : None ARMIN VELIA CRUZ LPN - 12/31/2015 10:21 CDT Functional Current Daily Living Assistance : None VELIA YOUNGER LPN - 12/31/2015 10:21 CDT Dependent Habits Exposure to Tobacco Smoke : Other: never Smoking Status : Never smoker Tobacco 2A : No Tobacco Use/Currently Using : No Tobacco Use/Last 30 Days : No Tobacco Use/Last 12 months : No Alcohol Use : No VELIA YOUNGER LPN - 12/31/2015 10:21 CDT Caffeine Use Grid Caffeine Use : None VELIA YUONGER LPN - 12/31/2015 10:21 CDT Recreational Drug Use Grid Drug Use : None VELIA YOUNGER LPN - 12/31/2015 10:21 CDT Psychosocial Domestic Abuse Concerns : None Behavioral Health Screen/Safety Assmt : No Denominational Preference : Unknown VELIA YOUNGER LPN - 12/31/2015 10:21 CDT Advance Directive Advanced Directives : No Advance Directive Additional Information : No VELIA YOUNGER LPN - 12/31/2015 10:21 CDT Educ Needs Learning Style Preference Adult Grid Patient : Demonstration, Printed materials, Verbal explanation, Video/Educational TV Family : Demonstration, Printed materials, Verbal explanation, Video/Educational TV VELIA YOUNGER LPN - 12/31/2015 10:21 CDT Source: [facility] POWERCHART Document Id: [id number] CDT!33 Miscellaneous - Velia Younger L.PPeymanNPeyman 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 [employer]isan Intake/History Entered On: 12/31/2015 10:23 CDT Performed On: 12/31/2015 10:21 CDT by VELIA YOUNGER LPN Intake Chief Complaint : physical Temperature Core : 36.5 DegC(Converted to: 97.7 DegF) Peripheral Pulse Rate : 76 /min Respiratory Rate : 12 /min (LOW) Systolic Blood Pressure : 120 mmHg Diastolic Blood Pressure : 72 mmHg NIBP Mean : 88 mmHg BP Location : Left upper extremity Blood Pressure Cuff Size : Regular Height : 162.5 cm(Converted to: 5 ft 4 inch(es), 64 inch(es)) Actual Weight : 103.1 kg(Converted to: 227 lb 5 oz) Dosing Weight Clinic : 103.1 kg Clinic BSA : 2.16 Body Mass Index : 39.04 kg/m2 VELIA YOUNGER LPN - 12/31/2015 10:21 CDT General Info Languages : Bangladeshi Is Patient Female and 13-50 no hysterectomy : Yes Status : Patient denies Are you ? : No VELIA YOUNGER LPN - 12/31/2015 10:21 CDT Subjective Pain Symptoms : No VELIA YOUNGER LPN - 12/31/2015 10:21 CDT Dependent Habits Exposure to Tobacco Smoke : Other: never Smoking Status : Never smoker Tobacco 2A : No Tobacco Use/Currently Using : No Tobacco Use/Last 30 Days : No Tobacco Use/Last 12 months : No VELIA YOUNGER LPN - 12/31/2015 10:21 CDT Caffeine Use Grid Caffeine Use : None VELIA YOUNGER LPN - 12/31/2015 10:21 CDT Recreational Drug Use Grid Drug Use : None VELIA YOUNGER LPN - 12/31/2015 10:21 CDT Source: [facility] POWERCHART Document Id: [id number] CDT!36 Miscellaneous - Velia Younger L.PPeymanNPeyman - 12/31/2015 10:21 AM CDT Health Assessment Health Assessment Entered On: 12/31/2015 10:24 CDT Performed On: 12/31/2015 10:21 CDT by VELIA YOUNGER LPN Health Assessment Complete Health Assessment Complete or Modified : Annual Health Assessment Annual Health Assessment Completed : Yes ARMIN VELIA CRUZ LPN - 12/31/2015 10:21 CDT Nutrition Nutrition Risk Factors by History Adult : None ARMINALENA GONZALEZNIFER NANCY ANTONIO - 12/31/2015 10:21 CDT Functional Current Daily Living Assistance : None VELIA YOUNGER LPN - 12/31/2015 10:21 CDT Dependent Habits Exposure to Tobacco Smoke : Other: never Smoking Status : Never smoker Tobacco 2A : No Tobacco Use/Currently Using : No Tobacco Use/Last 30 Days : No Tobacco Use/Last 12 months : No Alcohol Use : No VELIA YOUNGER LPN - 12/31/2015 10:21 CDT Caffeine Use Grid Caffeine Use : None VELIA YOUNGER LPN - 12/31/2015 10:21 CDT Recreational Drug Use Grid Drug Use : None VELIA YOUNGER LPN - 12/31/2015 10:21 CDT Psychosocial Domestic Abuse Concerns : None Behavioral Health Screen/Safety Assmt : No Denominational Preference : Unknown VELIA YOUNGER LPN - 12/31/2015 10:21 CDT Advance Directive Advanced Directives : No Advance Directive Additional Information : No VELIA YOUNGER LPN - 12/31/2015 10:21 CDT Educ Needs Learning Style Preference Adult Grid Patient : Demonstration, Printed materials, Verbal explanation, Video/Educational TV Family : Demonstration, Printed materials, Verbal explanation, Video/Educational TV VELIA YOUNGER LPN - 12/31/2015 10:21 CDT Source: [facility] POWERCHART Document Id: [id number] CDT!33 documented in this encounter Plan of Treatment Not on filedocumented as of this encounter Procedures Procedure Name Priority Date/Time Associated Comments Diagnosis DIPSTICK, U Routine 12/31/2015 11:43 Results for this AM CDT procedure are i n the results section. LIPID PANEL, S Routine 12/31/2015 11:33 Results f or this AM CDT procedure are i n the results section. AUTOMATED DIFFERENTIAL, Routine 12/31/2015 11:33 Results for this B AM CDT procedure are i n the results section. ENDOMYSIAL ABS (IGA), S Routine 12/31/2015 11:33 Results for this AM CDT procedure are i n the results section. TISSUE TRANSGLUTAMINASE Routine 12/31/2015 11:33 Results for this (TTG) AB, IGA, S AM CDT procedure a re in the results section. CBC WITH DIFFERENTIAL, B Routine 12/31/2015 11:33 Results for this AM CDT procedure are i n the results section. ASPARTATE Routine 12/31/2015 11:33 Results for this AMINOTRANSFERASE (AST), AM CDT proc edure are in S/P the results section. THYROID-STIMULATING Routine 12/31/2015 11:33 Resu lts for this HORMONE-SENSITIVE AM CDT procedure are in (S-TSH) the results section. BASIC METABOLIC PANEL, Routine 12/31/2015 11:33 R esults for this S/P AM CDT procedure are i n the results section. PATHOLOGY [employer] CYTOLOGY Routine 12/31/2015 12:00 R esults for this AM CDT procedure are i n the results section. documented in this encounter Results (ABNORMAL) Dipstick, Urine (12/31/2015 11:43 AM CDT) [facility] gist Method Time Signature Clarity Clear Clear POWERCHART HXUr Color Yellow Colorless POWERCHART Specific >=1.030 POWERCHART [place], POCT, U pH, POCT, Urine 5.5 <5.0 POWERCHART Protein, Ur, Negative Negative POWERCHART Dip MGDL Glucose Negative Negative POWERCHART MGDL Ketones, QL(U) Negative Negative POWERCHART MGDL HXBILIRUBIN Negative Negative POWERCHART HXBLOOD Moderate Negative POWERCHART (A) Leukocyte Negative Negative POWERCHART Esterase HXNITRITE Negative Negative POWERCHART Urobilinogen 0.2 0.2 MGDL POWERCHART Specimen (Source) Anatomical Collection Method Collection Time Re ceived Time Location / / Volume Laterality Urine, First 12/31/2015 11:43 Voided AM CDT Naz Hdez M.D. LAB URINE ORDERABLES Performing Organization Address City/State/ZIP Code Phon e Number POWERCHART Automated Differential (12/31/2015 11:33 AM CDT) P athologist Signature Absolute 3.77 1.70 - POWERCHART Neutrophils 7.00 109L Lymphocytes 2.49 0.90 - POWERCHART 2.90 X109L Monocytes 0.52 0.30 - POWERCHART 0.90 X109L Eosinophils 0.09 0.05 - POWERCHART 0.50 X109L Absolute 0.02 0.00 - POWERCHART Basophil 0.30 X109L Specimen Anatomical Collection Method Collection Time Receive d Time (Source) Location / / Volume Laterality Blood 12/31/2015 11:33 12/31/2015 AM CDT 11:33 AM CDT Naz Hdez M.D. LAB BLOOD ADD-ON Performing Organization Address City/State/ZIP Code Phon e Number POWERCHART CBC with Differential (12/31/2015 11:33 AM CDT) P athologist Signature Leukocytes 6.9 3.4 - 10.5 POWERCHART X109L Erythrocytes 4.71 3.90 - 5.03 POWERCHART T1876N Hemoglobin 13.9 12.0 - 15.5 POWERCHART GDL Hematocrit 41.2 34.9 - 44.5 POWERCHART MCV 87.5 82.0 - 98.0 POWERCHART FL Platelet Count 256 150 - 450 POWERCHART X109L HX RDW 14.2 11.9 - 15.5 POWERCHART Specimen (Source) Anatomical Collection Method Collection Time Re ceived Time Location / / Volume Laterality Blood 12/31/2015 11:33 AM CDT Naz Hdez M.D. LAB BLOOD ADD-ON Performing Organization Address City/State/ZIP Code Phon e Number POWERCHART Thyroid-Stimulating Hormone-Sensitive (s-TSH) (12/31/2015 11:33 AM CDT) P athologist Signature TSH 2.25 0.27 - 4.20 POWERCHART (Thyrotropin) DAVID Comment: Biotin has been identified by the taye daniels as a potential interfering substance. Higher concentrations of biotin may be found in multivitamins, hair/nail supplements, and workout supplements. If the result does not match clinical observat ions, repeat testing after patient refrains from the use of supplements for at least 12 hours. Specimen (Source) Anatomical Collection Method Collection Time Re ceived Time Location / / Volume Laterality Blood 12/31/2015 11:33 AM CDT Naz Hdez M.D. LAB BLOOD ADD-ON Performing Organization Address City/State/ZIP Code Phon e Number POWERCHART (ABNORMAL) Lipid Panel (12/31/2015 11:33 AM CDT) P athologist Signature Calculated LDL 98 <=129 MGDL POWERCHART Comment: 2013 National Lipid Association recommen dations for LDL-C [...] [facility] FH/ADH Genetic Reflex Moore el (test ADHP). Acquired (non-genetic) causes of markedly increased LDL cholesterol include cholestatic liver disease due to the presence of LpX. If a genetic form of hypercholesterolemia is suspected, family studies including biochemical testing fo r lipids (total cholesterol,triglycerides, LDL cholesterol and HDL cholesterol) are recommended. ??Please contact the laboratory at or the on-line test catalog at [employer] for information about how to order these eli ts or to speak with a genetic counselor. Further interpretation would require clinical information. Total Cholesterol/HDL Ratio 3.57 PO WERCHART Cholesterol, Total 164 <=199 MGDL POWERCHART Comment: 2013 National Lipid Association recommen dations for Total Cholesterol in adults ages 18 and up: Desirable <200 mg/dL Borderline high 200-239 mg/dL High 240 mg/dL 2014 National Lipid Association recommen dations for Total Cholesterol in children ages 2 to 17. Acceptable <170 mg/dL Borderline High 170-199 mg/dL High 200 mg/dL HX HDL 46 (L) >=50 MGDL POWERCHART Comment: 2014 National Lipid Association recommen dations for HDL-C in adults ages 18 and up: Low <40 mg/dL (Men) Low <50 mg/dL (Women) 2014 National Lipid Association recommen dations for HDL-C in children ages 2 to 17. Low <40 mg/dL Borderline Low 40-45 mg/dL Acceptable >45 mg/dL Triglycerides 100 <=149 MGDL POWERCHART Comment: 2013 National Lipid [...] Time Location / / Volume Laterality Blood 12/31/2015 11:33 AM CDT Naz Hdez M.D. LAB BLOOD ADD-ON Performing Organization Address City/State/ZIP Code Phon e Number POWERCHART AST (Aspartate Aminotransferase) (12/31/2015 11:33 AM CDT) Patholo gist Method Time Signature Aspartate 25 8 - 43 POWERCHART Aminotransferase UNITL (AST), S Specimen (Source) Anatomical Collection Method Collection Time Re ceived Time Location / / Volume Laterality Blood 12/31/2015 11:33 AM CDT Naz Hdez M.D. LAB BLOOD ADD-ON Performing Organization Address City/State/ZIP Code Phon e Number POWERCHART BMP (Basic Metabolic Panel) (12/31/2015 11:33 AM CDT) P athologist Signature Sodium, S 143 135 - 145 POWERCHART MMOLL Potassium, S 4.9 3.6 - 5.2 POWERCHART MMOLL Chloride, S 107 98 - 107 POWERCHART MMOLL CO2 Total 23 22 - 29 POWERCHART MMOLL BUN (Blood Urea 10 6 - 21 MGDL POWERCHART Nitrogen), S Creatinine, S 0.70 0.60 - 1.10 POWERCHART MGDL Calcium, Total, 9.5 8.0 - 10.3 POWERCHART S MGDL Anion Gap 13 7 - 15 POWERCHART MMOLL HXeGFR (MDRD) >60 >=60 POWERCHART [id number] eGFR >60 >=60 POWERCHART Black/ [id number] Syrian Glucose 93 70 - 139 POWERCHART MGDL Specimen (Source) Anatomical Collection Method Collection Time Re ceived Time Location / / Volume Laterality Blood 12/31/2015 11:33 AM CDT Naz Hdez M.D. LAB BLOOD ADD-ON Performing Organization Address City/[facility]/ZIP Code Phon e Number POWERCHART tTG (Tissue Transglutaminase), Antibody, IgA (12/31/2015 11:33 AM CDT) Patholo gist Method Time Signature Tissue <1.2 <4.0 POWERCHART Transglutaminase Ab, (Negative) IgA, S UNITML Comment: Test Performed by: [facility] [place] [address] Stock Pitcher: Billy Goff II, M.D., Ph.D. Specimen (Source) Anatomical Collection Method Collection Time Re ceived Time Location / / Volume Laterality Blood 12/31/2015 11:33 AM CDT Naz Hdez M.D. LAB BLOOD ADD-ON Performing Organization Address [facility] Phon e Number POWERCHART Endomysial Antibodies (IgA) (12/31/2015 11:33 AM CDT) Analysis Performed At Patho logist Time Signature Endomysial Negative Negative POWERCHART (FAROOQ) Ab (IgG) screen Comment: Negative in normal individuals. May be n egative in dermatitis herpatiformis or celiac disea se patients adhering to a gluten free diet. ADDITIONAL INFORMATIO N Laboratory developed test. Test Performed by: [facility] [place] [address] Stock Pitcher: Billy Goff II, M.D., Ph.D. Specimen (Source) Anatomical Collection Method Collection Time Re ceived Time Location / / Volume Laterality Blood 12/31/2015 11:33 AM CDT Naz Hdez M.D. LAB BLOOD ADD-ON Performing Organization Address City/State/ZIP Code Phon e Number POWERCHART Pathology [employer] Cytology (12/31/2015 12:00 AM CDT) Specimen (Source) Anatomical Location Collection Method / Collectio n Time Received Time / Laterality Volume 12/31/2015 Narrative [facility] - 01/18/2016 10:18 AM CDT [facility] [address] [facility] [address] [place] [address] ??[phone] Patient Name: JANA DUMONT Patient ID #: [id number] Collected: 12/31/2015 Address: City/[facility]/Zip: [address] [place] [address] ??[phone] Received: Reported: 01/01/2016 01/18/2016 Soc. Sec. #: ?/Age/Sex 1975 (Age: 40) ??F Physician(s): JEANETH HDEZ MD Copy To: ? [facility] ??[id number] [facility], ??[place] ??[address] CYTOPATHOLOGY AIR[employer]FT MECHANIC ARMAMENT REPORT FINAL CYTOLOGIC DIAGNOSIS Pap Smear - ThinPrep with HPV: NEGATIVE FOR INTRAEPITHELIAL LESION OR MALIGNANCY ENDOCERVICAL CELLS/COMPONENT PRESENT. SATISFACTORY SPECIMEN FOR EVALUATION. Electronically Signed Out By amb/01/18/[address](ASCP) The Pap test is a screening [...] VIRUS ADDENDUM ? Dano e Ordered: ? 01/01/2016 ? Status: ??Signed Out Date Complete: ? 01/18/2016 ? By: ??RC Arcenio CT(ASCP) Date Reported: ? 01/18/2016 INTERPRETATION: Test: Aptima High Risk HPV Result: NEGATIVE FOR HIGH RISK HPV Specimen Description: ThinPrep? ?? Pap Test PreservCyt Solution HPV by Reimbursement Director-Mediated Amplificat ion (TMA) for E6/E7 viral messenger [...] Smear - ThinPrep with HPV CLINICAL HISTORY: Date of Last Menstrual Period: 12/09/2015 Hormonal History: No hormonal therapy Other Clinical Conditions: HPV TYPING REQUESTED Naz Hdez M.D. LAB PAP COPATH ORDERABLES Performing Organization Address City/State/ZIP Code Phon e Number [facility] documented in this encounter Visit Diagnoses Not on filedocumented in this encounter Additional Health Concerns Assessment Noted Time PHQ-9 Depression Total Score: 4 12/31/2015 12:37 PM CD T documented as of this encounter
--- OUTSIDE RECORDS SUMMARY | 2021-12-15 01:20 | XMS_ITS | Encounter Summary ---
:1975 Author Organization [facility] Address [address] [place] [address] Care Team Providers Name Role Phone Jose Combs M.D. Primary Care Provider [phone] Encounter Details Date Type Department Care Team Description 06/04/2019 Orders Only [facility] Combs Sc reening Mammogram Myrna ColemanB.SPeyman, Breast Cancer M.D. [address] [facility] [place] [address] Social History Tobacco Use Types Packs/Day [...] documented as of this encounter Care Teams Cloth Shader Relationship Specialty Start Date End Date Jose Combs M.B.BPeymanSPeyman, MPeymanD. PCP - General 04/08/19 [address] [facility] [place] [address] documented as of this encounter
--- OUTSIDE RECORDS SUMMARY | 2021-12-15 01:20 | XMS_ITS | Encounter Summary ---
:1975 Author Organization [facility] Address [address] [place] [address] Care Team Providers Name Role Phone Naz Hdez M.D. Primary Care Provider Reason for Visit Reason Comments Med Refill Encounter Details Date Type Department Care Team Description 01/12/2018 Refill Department of Family Medicine, Naz park M.D. Med Refill [facility], in [address] [place] [address] [place] [address] [place] [address] [phone] Social History Tobacco Use Types Packs/Day Years [...] documented as of this encounter Care Teams Shear Operator Relationship Specialty Start Date End Date Naz Hdez M.D. PCP - General 10/20/16 04/07/19 documented as of this encounter
--- OUTSIDE RECORDS SUMMARY | 2021-12-15 01:20 | XMS_ITS | Encounter Summary ---
:1975 Author Organization [facility] Address [address] [place] [address] Care Team Providers Name Role Phone Unavailable Primary Care Provider Unavailable Encounter Details Date Type Department Care Team Description 08/29/2016 Hospital Encounter HX [facility] FAMILYPRA Wilma Hdez M.D. [address] [place], [place] [address] (Wo rk) Social History Tobacco Use Types Packs/Day Years Used Date Smoking Tobacco: Never Assessed Sex Assigned at Date Recorded Not on file documented as of this encounter Last Filed Vital Signs Vital Sign Reading Time Taken Comments Blood Pressure 114/80 08/29/2016 3:09 PM CDT Pulse 78 08/29/2016 3:09 PM CDT Temperature - - Respiratory Rate 16 08/29/2016 3:09 PM CDT Oxygen Saturation - - Inhaled Oxygen Concentration - - Weight 106 kg (234 lb 2.1 oz) 08/29/2016 3:09 PM CDT Height 162 cm (5' 3.78) 08/29/2016 3:09 PM CDT Body Mass Index 40.47 08/29/2016 3:09 PM CDT documented in this encounter Progress Notes Naz Hdez M.D. - 08/29/2016 2:58 PM CDT [id number] CHIEF COMPLAINT/REASON FOR VISIT Cough. HISTORY OF PRESENT ILLNESS A 40-year-old female presents to clinic secondary to a productive cough of greenish sputum for the last 3-1/2 weeks. Also has laryngitis. Symptoms began with a head cold, moved into her chest, had somefevers at first and episodic headaches. No ear pain. 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 Is taking her other medications as prescribed. EMR reviewed. MEDICATIONS 1. Simvastatin 20 mg each day. 2. Loratadine 10 mg daily as needed. 3. Lexapro 10 mg daily. 4. Augmentin 875 mg orally 2 times per day for 10 days. Prescription given 08/29/2016. 5. Mucinex [id number] as needed. ALLERGIES No known drug allergies. SYSTEMS REVIEW Negative review of major organ systems apart from that noted in the HPI and the Past Medical Surgical History. PAST MEDICAL/SURGICAL HISTORY SURGERIES: 1. Basal cell [...] History of basal cell carcinoma followed by pilates coordinator, Dr. Phyllis Mancuso. 5. Impaired fasting glucose [...] Non applicable secondary to stated age. Influenza: 02/16/2016. DEXA scan: Non applicable secondary to stated age. SOCIAL HISTORY Alcohol rare. Caffeine very rare. FAMILY HISTORY Mother has hyperlipidemia status post an [place] at age 47. Father status post melanoma [...] Two children in good health. VITAL SIGNS Weight 106.2 kg. Temperature 37.4, respiratory rate 16, pulse 78, O2 saturation room air 96%. Systolic 114, diastolic 80. PHYSICAL EXAMINATION GENERAL: Neatly dressed, well groomed. HEENT: Head: No evidence of trauma, tenderness, masses. Ears: TMs are carey. Good visualization of landmarks. Nose: Mucosal membranes boggy. Oral: Minimal pharyngeal erythema. NECK: Supple. Trachea midline. LYMPH NODES: No cervical adenopathy. THYROID: No masses, tenderness, or enlargement. LUNGS: Clear to auscultation. CARDIOVASCULAR: Regular rate and rhythm. IMPRESSION/REPORT/PLAN 1. Sinusitis/bronchitis superimposed on; 2. Hyperglycemia. 3. Obesity. 4. Depression with anxiety. PLAN: Supportive measures discussed in detail. Risks and benefits of medications discussed. All questions answered. Signs and symptoms leading to emergent evaluation are reviewed. Please see the medication reconciliation and preventive services. She will consider her options and follow up as noted. Naz Hdez M.D./fiorella Electronically Signed By: NAZ HDEZ MD On: 08/31/2016 05:37 PM Modified by and Electronically Signed by: NAZ HDEZ MD On: 08/31/2016 05:37 PM Source: [facility] [email or web address] Document Id: [id number] documented in this encounter Miscellaneous Notes Miscellaneous - Naz Hdez M.D. - 08/30/2016 7:31 AM CDT Ambulatory Patient Summary [facility] [address] [place] [id number] Visit Information Name: JANA DUMONT [facility] Number: [id number] Current Date: 08/30/2016 07:31:29 Physicians Attending Provider: NAZ HDEZ MD Primary [...] Take Indications/Special Instructions/Comments/Notes for Patient Medication Changes/Routing amoxicillin-clavulanate (amoxicillin-clavulanate 875 mg-125 mg oral tablet) 1 Tablet(s), Oral, two times a day x 10 day(s) New Routed to [address] [id number] cetirizine (ZyrTEC 10 mg oral tablet) 1 Tablet(s), Oral, once a day as needed for allergi escitalopram (Lexapro 10 mg oral tablet) 1 Tablet(s), Oral, once a day LORazepam (LORazepam 0.5 mg oral tablet) See Instructions 1 tab(s) PO 1/2 hour prior to airflight simvastatin (simvastatin 20 mg oral tablet) 1 Tablet(s), Oral, once a day (at bedtime) Stop Taking the Following Medications: Medication list as of 08-30-16 07:31 Attention: If you have any medications at [...] Electronically Signed By: NAZ HDEZ MD Signed On:30-AUG-2016 07:31:22 Your Allergies & Intolerances Substance Reaction Symptoms [...] 40-44 posted on 08/29 at 15:09 CDT. Your Upcoming Appointments Date Time Location Provider [...] if you dont have one. Go to [email or web address] and click on Create Your Account. Then, follow the directions to complete the online form. Youll be asked for your [facility] number which you can find at the top of this document. Your Goals/Additional instructions: Source: [facility] POWERCHART Document Id: [id number] Miscellaneous - Naz Hdez M.D. - 08/30/2016 7:31 AM CDT Ambulatory Discharge Medication List [address] [phone] Visit Information Name: JANA DUMONT [facility] Number: [id number] Current Date: 08/30/2016 07:31:28 Attending Provider: NAZ HDEZ MD Primary Care [...] Take Indications/Special Instructions/Comments/Notes for Patient Medication Changes/Routing amoxicillin-clavulanate (amoxicillin-clavulanate 875 mg-125 mg oral tablet) 1 Tablet(s), Oral, two times a day x 10 day(s) New Routed to [address] [phone] cetirizine (ZyrTEC 10 mg oral tablet) 1 Tablet(s), Oral, once a day as needed for allergi escitalopram (Lexapro 10 mg oral tablet) 1 Tablet(s), Oral, once a day LORazepam (LORazepam 0.5 mg oral tablet) See Instructions 1 tab(s) PO 1/2 hour prior to airflight simvastatin (simvastatin 20 mg oral tablet) 1 Tablet(s), Oral, once a day (at bedtime) Stop Taking the Following Medications: Medication list as of 08-30-16 07:31 Attention: If you have any medications at [...] Electronically Signed By: NAZ HDEZ MD Signed On:30-AUG-2016 07:31:22 Additional Information: Source: [facility] POWERCHART Document Id: [id number] Miscellaneous - Barrington Gomez, L.P.N. - 08/29/2016 3:09 PM CDT Adult Manager Of Software Development Intake/History Adult Manager Of Software Development Intake/History Entered On: 08/29/2016 15:12 CDT Performed On: 08/29/2016 15:09 CDT by BARRINGTON GOMEZ LPN Intake Chief Complaint : cold for past 3 weeks, productive cough - green mucus, headache, fatigue Temperature Core : 37.4 DegC(Converted to: 99.3 DegF) Peripheral Pulse Rate : 78 /min Respiratory Rate : 16 /min Heart Rhythm : Regular Systolic Blood Pressure : 114 mmHg Diastolic Blood Pressure : 80 mmHg NIBP Mean : 91 mmHg BP Location : Left upper extremity Blood Pressure Cuff Size : Large SpO2 : 96 % Oxygen Therapy : Room air Height : 162 cm(Converted to: 5 ft 4 inch(es), 64 inch(es)) Actual Weight : 106.2 kg(Converted to: 234 lb 2 oz) Weight Source : Standing scale Dosing Weight Clinic : 106.2 kg Clinic BSA : 2.19 Body Mass Index : 40.47 kg/m2 BARRINGTON GOMEZ LPN - 08/29/2016 15:09 CDT General Info Information Given By : Patient Preferred Communication Mode : Verbal, Written Languages : Panamanian Is Patient Female and 13-50 no hysterectomy : Yes Status : Patient denies Are you ? : No BARRINGTON GOMEZ LPN - 08/29/2016 15:09 CDT Subjective Pain Symptoms : No BARRINGTON GOMEZ LPN - 08/29/2016 15:09 CDT Dependent Habits Exposure to Tobacco Smoke : Other: never Smoking Status : Never smoker Tobacco 2A : No Tobacco Use/Currently Using : No Tobacco Use/Last 30 Days : No Tobacco Use/Last 12 months : No BARRINGTON GOMEZ LPN - 08/29/2016 15:09 CDT Caffeine Use Grid Caffeine Use : None BARRINGTON GOMEZ LPN - 08/29/2016 15:09 CDT Recreational Drug Use Grid Drug Use : None BARRINGTON GOMEZ LPN - 08/29/2016 15:09 CDT Source: [employer] Document Id: [id number] CDT!42 documented in this encounter Plan of Treatment Not on filedocumented as of this encounter Visit Diagnoses Not on filedocumented in this encounter Additional Health Concerns Assessment Noted Time PHQ-9 Depression Total Score: 4 12/31/2015 12:37 PM CD T documented as of this encounter
--- OUTSIDE RECORDS SUMMARY | 2021-12-15 01:20 | XMS_ITS | Encounter Summary ---
:1975 Author Organization [facility] Address [address] [place] [address] Care Team Providers Name Role Phone Naz Hdez M.D. Primary Care Provider Encounter Details Date Type Department Care Team Description 02/01/2017 Hospital Encounter HX [facility] Oral Hylton M .D. Social History Tobacco Use Types Packs/Day Years [...] mouth daily. documented as of this encounter Consult Notes Oral Hylton M.D. - 02/01/2017 3:28 PM CDT [id number] CHIEF COMPLAINT/REASON FOR VISIT 1. Menorrhagia. 2. Vaginal prolapse. 3. Urinary incontinence. HISTORY OF PRESENT ILLNESS This patient is a 41-year-old G2, P2-0-0-2 female with LMP 01/18/2017. The patient presents for ITEM PROCESSOR consult from Dr. Naz Hdez of [facility]. The patient presents with several complaints. The 1st complaint is menorrhagia. For the last 8 months she has been having heavy menstrual bleeding. She reports regular menses once a month that typically last for 6 to 7 days. For the last 8 months she has been having heavy blood flow with menorrhagia for the first 3 days, followed by 2 to 4 days of light bleeding. She has heavy blood flow and blood clots on her heavy flow days. She also has soiling of her clothing on her heavy flow days. She must wear both pads and tampons on her heavy flow days. She reports being tired and exhausted and run down on her heavy menstrual flow days, these improve when she has a light menstrual blood flow and resolve when she is off her period. The patient would like kimberly evaluated and managed for the heavy menstrual bleeding. She also complains of a vaginal bulge and fullness. She thinks her vaginal vault is falling down. She is not sure if she had uterine prolapse but over the last 2 years she has been noticing more and more pelvic and vaginal fullness, at times she feels like she has a ball in the vagina and has a pressure sensation. She denies anything coming down or rubbing on her underwear. She denies anything comingdown where it is visible. She does report she has occasional dyspareunia and feels like something isbeing hit but this does not occur every time. She denies any postcoital spotting. She denies any worsening of symptoms with urination or bowel movements. She denies any rectal splinting. She denies rectal straining. The patient's 3rd concern is leaking of urine. She reports stress urinary incontinence symptoms thathave been ongoing for the last 4 to 5 years and have been worsening over the last year. She reports leaking of urine with laugh, cough, sneeze, exercise and intercourse. She denies any urge incontinence. She denies nocturia. She denies enuresis. She denies urinary frequency. No burning with urination.No hematuria. ALLERGIES No known drug allergies. MEDICATIONS 1. Simvastatin. 2. Loratadine. 3. Lexapro. 4. Lorazepam. PAST MEDICAL/SURGICAL HISTORY PAST MEDICAL HISTORY: 1. Basal cell carcinoma. 2. Anxiety and depression. 3. Premenstrual syndrome. 4. Hyperlipidemia. 5. Obesity with BMI of 40. 6. History of basal cell carcinoma. 7. Stress urinary incontinence. 8. Menorrhagia. 9. Cystocele. 10. Latent tuberculosis with treatment. PAST SURGICAL HISTORY: 1. Colonoscopy 01/30/2017. 2. Basal cell carcinoma skin excision. PAST OBSTETRICAL HISTORY: 1. Vaginal delivery, 2001. 2. Vaginal delivery, 2002. SOCIAL HISTORY The patient is . Her has a vasectomy for sterilization. She reports social alcohol use. She denies tobacco or drug use. She does drink caffeine. VITAL SIGNS Weight 106.8 kg, height 163 cm, BMI 40, pulse 66, blood pressure 116/86. PHYSICAL EXAMINATION GENERAL: Well-developed well-nourished obese female in no apparent distress. Alert and oriented x3. Normal affect. LUNGS: Clear to auscultation bilaterally. Good inspiratory effort. No wheezing, rhonchi or rales. HEART: Regular rate and rhythm without murmur. No JVD. No peripheral vascular disease. ABDOMEN: Soft, obese, nontender, nondistended. Positive bowel sounds. No hepatosplenomegaly. No rebound. No guarding. Exam limited by body habitus. EXTREMITIES: No clubbing, cyanosis, or edema. Nontender bilaterally. GENITOURINARY: Normal external female genitalia. Normal BUS. Normal vaginal rugae without lesions. There is a grade 1 cystocele. Q-tip test shows 30 degree change in urethra. Normal multiparous cervical os without lesions. No cervical motion tenderness. Uterus is normal size, shape, consistency, midposition, mobile, and nontender. Exam is limited by body habitus. There is uterine descent down to the spines. Pap smear is obtained. The patient had a negative supine cough stress test. RECTUM: Normal sphincter tone. No external hemorrhoids. PROCEDURE I reviewed the risks, benefits, alternatives, and indication of endometrial biopsy with the patient.Patient verbalizes understanding and desires to proceed. Gheens protocol form completed. I prepped and draped the patient in the usual sterile fashion. I placed a speculum into the vagina. I cleanedthe cervix with Betadine. I placed a single-tooth tenaculum on the anterior lip of the cervix. I passed endometrial Pipelle through the cervical os into uterine cavity. I performed 3 passes of endometrial Pipelle with good return of tissue. This is sent to pathology for evaluation. All instruments removed from the vagina. The patient tolerated the procedure well. DIAGNOSTICS Lab 01/05/2017: Pap smear normal. Lab 02/01/2017: Endometrial biopsy pending. Radiology 01/31/2017: Pelvic ultrasound shows uterus measures 7.9 x 5.5 cm with no myometrial masses. Endometrial stripe is 11 mm. Right ovary 2.2 x 2.6 cm. There is a 9 mm extra ovarian adnexal simplecyst, no free fluid. Left ovary 2.1 x 2.5 cm and appears normal with good blood flow. No free fluid. IMPRESSION/REPORT/PLAN 1. Menorrhagia. 2. Grade 1 cystocele. 3. Stress urinary incontinence. 4. Morbid obesity with body mass index of 40. 5. Medical problems including basal cell skin carcinoma, depression, anxiety, hyperlipidemia, hemorrhoids. PLAN: 1. I discussed menorrhagia with the patient. I discussed increased risk for endometrial pathology inwomen over the age of 35 with menorrhagia. I discussed increased risk for endometrial pathology including endometrial hyperplasia, endometrial atypia, endometrial polyps and even endometrial carcinoma.I recommend sampling the endometrium. 2. I reviewed the risks, benefits, alternatives, and indication of endometrial biopsy with patient. The patient verbalizes understanding and desires to proceed. Endometrial biopsy was performed as mentioned above without difficulty. I will contact the patient next week with results of the endometrial biopsy and discuss specific management plans with the patient at that time. 3. I briefly discussed management plans with the patient for menorrhagia including hormone therapy with control pills, Depo-Provera, Mirena IUD in an attempt to control her menstrual cycles and create an amenorrheic state. I also discussed surgical options of hysteroscopy, dilation curettage, endometrial ablation, and even hysterectomy. 4. I discussed the patient's findings of a grade 1 cystocele. I discussed cystocele with the patient. I discussed that this is the pelvic pressure that she was actually noticing. The patient does have some minimal uterine descent which is appropriate for someone who has had 2 children. I briefly discussed management plans with the patient including trial vaginal pessary. I also feel it is reasonable for the patient to have frequent timed voids during the day to keep her bladder empty and therefore that should relieve some of her pressure and fullness sensation that she is experiencing. I also discussed surgical options including anterior colporrhaphy and even possible hysterectomy. 5. I discussed the patient's incontinence. She reports stress urinary incontinence. She denies any urge symptoms. She denies any nocturia. She does drink caffeine daily. She is found to have urethral hypermobility and a negative supine cough stress test. She does have a grade 1 cystocele. I recommend the patient decrease bladder stimulating agents including caffeine and chocolate and have frequent timed voids and urinate prior to exercise and intercourse to see if that will help with some of her symptoms. 6. I also discussed surgical correction options including mid urethral sling procedure. If the patient would like to have further evaluation and management of her incontinence I would like for her to do a bladder voiding diary for 48 hours and bring this in for my review. I also would like to get the patient set up for urodynamic evaluation. The patient will discuss her options with her family. 7. Bleeding precautions are reviewed with patient. 8. All the patient's questions are answered. Oral Hylton M.D./fiorella Electronically Signed By: ORAL HYLTON MD On: 02/02/2017 12:38 PM Source: [facility] MHSDOLBEYNONRADSYS Document Id: [id number] documented in this encounter Miscellaneous Notes Miscellaneous - Oral Hylton M.D. - 02/09/2017 5:30 PM CDT Normal Results Letter February 09, 2017 JANA DUMONT [address] [facility] [id number] Dear JANA DUMONT, I attempted to reach you by phone today without answer. I am pleased to report that your results from the following diagnostic test(s) are normal. Please follow up with us as we discussed during your visit or sooner if you have any concerns. If you have questions or concerns, please do not hesitate to call our office. Your endometrial biopsy shows benign tissue. I will be happy to discuss management options with you. Please contact me at the clinic at your convenience. Result Name Current Result Pathology-Surg Path 02/01/2017 Sincerely, ORAL HYLTON [address] [place] [address] [address] [place] [address] Electronic Signature Electronically Signed By: ORAL HYLTON MD On: February 09, 2017 This document has images extracted. Source: [facility] Aviac[employer]m Document Id: [id number] Miscellaneous - Oral Hylton M.D. - 02/01/2017 4:53 PM CDT Ambulatory Patient Summary [address] [id number] Visit Information Name: JANA DUMONT [facility] Number: [id number] Current Date: 02/01/2017 16:52:59 Physicians Attending Provider: ROAL HYLTON MD Primary Care Provider: NAZ HDEZ MD [...] the Following Medications: Medication list as of 02-01-17 16:53 Attention: If you have any medications at home that are not on this list, DO NOT take them until youcontact your provider for clarification. Give a copy of your medication list to your primary care provider. Update your medication list any time medications or doses are changed and carry your medication list at all times in case of emergency. Electronically Signed By: ORAL HYLTON MD Signed On:01-FEB-2017 16:52:57 Your Allergies & Intolerances Substance Reaction Symptoms [...] Your Upcoming Appointments Date Time Location Provider 02/08/2017 14:30 [facility] Mammo [facility] Room 2 02/08/2017 15:00 [facility] Ultrasound [facility] Room 1 02/23/2017 11:00 [facility] Surgeon Jj BROWNING, Roni Tejeda Attention: Contact your local Clinic if further [...] if you dont have one. Go to [email or web address] and click on Create Your Account. Then, follow the directions to complete the online form. Youll be asked for your [facility] number which you can find at the top of this document. Your Goals/Additional instructions: Source: [facility] POWERCHART Document Id: [id number] Miscellaneous - Oral Hylton M.D. - 02/01/2017 4:52 PM CDT Ambulatory Discharge Medication List [address] [id number] Visit Information Name: JANA DUMONT [facility] Number: [id number] Current Date: 02/01/2017 16:52:59 Attending Provider: ORAL HYLTON MD Primary Care Provider: NAZ HDEZ MD [...] the Following Medications: Medication list as of 02-01-17 16:52 Attention: If you have any medications at home that are not on this list, DO NOT take them until youcontact your provider for clarification. Give a copy of your medication list to your primary care provider. Update your medication list any time medications or doses are changed and carry your medication list at all times in case of emergency. Electronically Signed By: ORAL HYLTON MD Signed On:01-FEB-2017 16:52:57 Additional Information: Source: [facility] [employer] Document Id: [id number] Jameecellprudence - Song Gutierrez L.P.N. - 02/01/2017 4:24 PM CDT Wind Turbine Performance Engineer Documentation Wind Turbine Performance Engineer Documentation Entered On: 02/01/2017 16:24 CDT Performed On: 02/01/2017 16:24 CDT by SONG GUTIERREZ LPN Wind Turbine Performance Engineer Documentation Exam/Procedure Performed : Endometrial Bx CD Wind Turbine Performance Engineer Present : Yes CD Wind Turbine Performance Engineer Name : Song Gutierrez LPN Present in Room During Exam/Procedure : Alone SONG GUTIERREZ LPN - 02/01/2017 16:24 CDT [facility] Document Id: [id number] CDT!6 Jameecellprudence - Song Gutierrez L.P.N. - 02/01/2017 3:36 PM CDT Adult Systems Software Engineer Intake/History Adult Systems Software Engineer Intake/History Entered On: 02/01/2017 15:39 CDT Performed On: 02/01/2017 15:36 CDT by SONG GUTIERREZ LPN Intake Chief Complaint : Menorrhagia, prolapse LMP Date : 01/18/17 Peripheral Pulse Rate : 66 /min Systolic Blood Pressure : 116 mmHg Diastolic Blood Pressure : 86 mmHg NIBP Mean : 96 mmHg BP Location : Left upper extremity Blood Pressure Cuff Size : Regular Height : 163 cm(Converted to: 5 ft 4 inch(es), 64 inch(es)) Actual Weight : 106.8 kg(Converted to: 235 lb 7 oz) Weight Source : Standing scale Dosing Weight Clinic : 106.8 kg Clinic BSA : 2.2 Body Mass Index : 40.2 kg/m2 SONG GUTIERREZ [facility] - 02/01/2017 15:36 CDT General Info Information Given By : Patient Languages : Bulgarian Is Patient Female and 13-50 no hysterectomy : Yes Status : Patient denies Are you ? : No SONG GUTIERREZ [facility] - 02/01/2017 15:36 CDT Subjective Pain Symptoms : No SONG GUTIERREZ [facility] - 02/01/2017 15:36 CDT Dependent Habits Exposure to Tobacco Smoke : Other: never Smoking Status : Never smoker Tobacco 2A : No Tobacco Use/Currently Using : No Tobacco Use/Last 30 Days : No Tobacco Use/Last 12 months : No SONG GUTIERREZ [facility] - 02/01/2017 15:36 CDT Caffeine Use Grid Caffeine Use : None SONG GUTIERREZ [facility] - 02/01/2017 15:36 CDT Recreational Drug Use Grid Drug Use : None SONG GUTIERREZ [facility] - 02/01/2017 15:36 CDT Source: [facility] SenseeCHART Document Id: [id number] CDT!37 documented in this encounter Plan of Treatment Not on filedocumented as of this encounter Visit Diagnoses Not on filedocumented in this encounter Additional Health Concerns Assessment Noted Time PHQ-9 Depression Total Score: 4 01/05/2017 10:03 AM CD T documented as of this encounter Care Teams Senior Software Developer Relationship Specialty Start Date End Date Naz Hdez M.D. PCP - General 10/20/16 04/07/19 documented as of this encounter
--- OUTSIDE RECORDS SUMMARY | 2021-12-15 01:20 | XMS_ITS | Encounter Summary ---
:1975 Author Organization [facility] Address [address] [place] [address] Care Team Providers Name Role Phone Unavailable Primary Care Provider Unavailable Encounter Details Date Type Department Care Team Description 12/31/2015 Hospital Encounter HX NO MAPPING Naz Hdez M.D. [address] [place], [place] [address] (Wo rk) Social History Tobacco Use Types Packs/Day Years Used Date Smoking Tobacco: Never Assessed Sex Assigned at Date Recorded Not on file documented as of this encounter Miscellaneous Notes Miscellaneous - Conversion, Historical Provider Ser - 12/31/2015 11:59 PM CDT Coding Summary-Paper Based CODING DATE: 01/20/[address] [facility] STATUS: * Discharged to Home or Self Care PAYOR: [employer] ADMIT DX: REASON FOR VISIT DX: FINAL DX: PRINCIPAL: Z11.51 Encounter for screening for human papillomavirus (HPV) SECONDARY: PROCEDURES DOCTOR NAME DATE NOTE: The code number assigned matches the documented diagnosis and / or procedure in the patient's chart. However, the narrative phrase printed from the coding software may appear abbreviated, or result in slightly different terminology. Coded By: CHAVEZ WALLACE Date Saved: 01/20/2016 10:40 am Source: [facility] POWERCHART Document Id: [id number] Miscellaneous - Conversion, Historical Provider Ser - 12/31/2015 11:59 PM CDT Coding Summary-Paper Based CODING DATE: 01/20/[address] [facility] STATUS: * Discharged to Home or Self Care PAYOR: [employer] ADMIT DX: REASON FOR VISIT DX: FINAL DX: PRINCIPAL: Z11.51 Encounter for screening for human papillomavirus (HPV) SECONDARY: PROCEDURES DOCTOR NAME DATE NOTE: The code number assigned matches the documented diagnosis and / or procedure in the patient's chart. However, the narrative phrase printed from the coding software may appear abbreviated, or result in slightly different terminology. Coded By: CHAVEZ WALLACE Date Saved: 01/20/2016 10:40 am Source: [employer] Document Id: [id number] SION RN documented in this encounter Plan of Treatment Not on filedocumented as of this encounter Visit Diagnoses Not on filedocumented in this encounter Additional Health Concerns Assessment Noted Time PHQ-9 Depression Total Score: 4 12/31/2015 12:37 PM CD T documented as of this encounter
--- OUTSIDE RECORDS SUMMARY | 2021-12-15 01:20 | XMS_ITS | Encounter Summary ---
:1975 Author Organization [facility] Address [address] [place] [address] Care Team Providers Name Role Phone Naz Hdez M.D. Primary Care Provider Encounter Details Date Type Department Care Team Description 01/05/2017 Hospital Encounter HX [facility] Dwain Schuler M.D. [address] [place], [place] [address] (Wo rk) Social History [...] PM CDT Coding Summary-Paper Based CODING DATE: 01/17/2017 FINAL [facility] STATUS: * Discharged to Home or Self Care PAYOR: [employer] ADMIT DX: REASON FOR VISIT DX: FINAL DX: PRINCIPAL: R19.4 Change in bowel habit SECONDARY: PROCEDURES DOCTOR NAME DATE NOTE: The code number assigned matches the documented diagnosis and / or procedure in the patient's chart. However, the narrative phrase printed from the coding software may appear abbreviated, or result in slightly different terminology. Coded By: TOSHIA PINA Date Saved: 01/17/2017 06:19 am Source: [facility] POWERCHART Document Id: [id number] documented in this encounter Plan of Treatment Not on filedocumented as of this encounter Visit Diagnoses Not on filedocumented in this encounter Additional Health Concerns Assessment Noted Time PHQ-9 Depression Total Score: 4 01/05/2017 10:03 AM CD T documented as of this encounter Care Teams Inside Finisher Relationship Specialty Start Date End Date Naz Hdez M.D. PCP - General 10/20/16 04/07/19 documented as of this encounter
--- OUTSIDE RECORDS SUMMARY | 2021-12-15 01:20 | XMS_ITS | Encounter Summary ---
:1975 Author Organization [facility] Address [address] [place] [address] Care Team Providers Name Role Phone Naz Hdez M.D. Primary Care Provider Encounter Details Date Type Department Care Team Description 05/28/2018 Orders Only Department of Family Naz Hdez Scr eening Mammogram MedicineSkinny M.D. [facility], in [place] [address] (Primary Dx) [place], [place] [address] [address] [place], [place] [phone] [address] (Work) [phone] Social History Tobacco Use Types Packs/Day Years [...] documented as of this encounter Care Teams Radiation Control Health Physicist Relationship Specialty Start Date End Date Naz Hdez M.D. PCP - General 10/20/16 04/07/19 documented as of this encounter
--- OUTSIDE RECORDS SUMMARY | 2021-12-15 01:20 | XMS_ITS | Encounter Summary ---
:1975 Author Organization [facility] Address [address] [place] [address] Care Team Providers Name Role Phone Naz Hdez M.D. Primary Care Provider Reason for Visit Reason Comments Med Refill Encounter Details Date Type Department Care Team Description 02/20/2018 Refill Department of Family Medicine, Naz park M.D. Med Refill [facility], in [address] [place] [address] [place] [address] [place] [address] [phone] Social History Tobacco Use Types Packs/Day Years [...] documented as of this encounter Care Teams Powertrain Design Engineer Relationship Specialty Start Date End Date Naz Hdez M.D. PCP - General 10/20/16 04/07/19 documented as of this encounter
--- OUTSIDE RECORDS SUMMARY | 2021-12-15 01:20 | XMS_ITS | Encounter Summary ---
:1975 Author Organization [facility] Address [address] [place] [address] Care Team Providers Name Role Phone Naz Hdez M.D. Primary Care Provider Encounter Details Date Type Department Care Team Description 03/07/2017 Orders Only HX NO MAPPING Provider, Historical Social History Tobacco Use Types Packs/Day Years [...] documented as of this encounter Care Teams Premium Note Interest Calculator Clerk Relationship Specialty Start Date End Date Naz Hdez M.D. PCP - General 10/20/16 04/07/19 documented as of this encounter
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
--- OUTSIDE RECORDS SUMMARY | 2021-12-15 01:21 | XMS_ITS | Encounter Summary ---
:1975 Author Organization [facility] Address [address] [place] [address] Care Team Providers Name Role Phone Unavailable Primary Care Provider Unavailable Encounter Details Date Type Department Care Team Description 04/09/2014 Hospital Encounter HX [facility] Aishwarya Stevenson APRN, C.N.P. [address] [place] [address] (Wo rk) Social History Tobacco Use Types Packs/Day Years Used Date Smoking Tobacco: Never Assessed Sex Assigned at Date Recorded Not on file documented as of this encounter Last Filed Vital Signs Vital Sign Reading Time Taken Comments Blood Pressure 110/76 04/09/2014 10:02 AM REFRIGERATION MECHANIC HELPER Pulse 88 04/09/2014 10:02 AM REFRIGERATION MECHANIC HELPER Temperature - - Respiratory Rate 20 04/09/2014 10:02 AM REFRIGERATION MECHANIC HELPER Oxygen Saturation - - Inhaled Oxygen Concentration - - Weight 98 kg (216 lb 0.8 oz) 04/09/2014 10:02 AM REFRIGERATION MECHANIC HELPER Height 160.5 cm (5' 3.19) 04/09/2014 10:02 AM REFRIGERATION MECHANIC HELPER Body Mass Index 38.04 04/09/2014 10:02 AM REFRIGERATION MECHANIC HELPER documented in this encounter Progress Notes Phillip Stevenson APRN, C.N.P. - 04/09/2014 9:52 AM CST [id number] CHIEF COMPLAINT/REASON FOR VISIT Fever and body aches with a upper respiratory congestion. HISTORY OF PRESENT ILLNESS Alondra states she has had fever and congestion for the past 2 days. She is having significant body aches. She did not receive a flu shot this fall. MEDICATIONS See depart summary from today. ALLERGIES None. REVIEW OF SYSTEMS SYSTEMS REVIEW Positive for that mentioned in the history of present illness and noted in the past medical history in the EMR. All other systems were reviewed and were negative. PREVENTIVE Due for flu shot. SOCIAL HISTORY She does not smoke. VITAL SIGNS See EMR. O2 saturation 96%. PHYSICAL EXAMINATION GENERAL: Well-developed, well-nourished female, who is needing to lie down in the exam room due to body aches, fever and lightheadedness. TMs are clear. Nares congested with clear mucous. Throat clear.Mild anterior cervical lymphadenopathy. HEART: Regular rate and rhythm. LUNGS: Clear to auscultation. No wheezes or rales. ABDOMEN: Soft, nontender. No hepatosplenomegaly. IMPRESSION/REPORT/PLAN Influenza A. Tamiflu 75 mg 1 twice a day for 5 days. Encourage fluids. Tylenol for fever and discomfort. Rest and recheck if symptoms do not improve. Phillip Stevenson CNP/fiorella Electronically Signed By: PHILLIP STEVENSON CNP On: 04/09/2014 12:09 PM Source: [facility] MHSDOLBEYNONRADSYS Document Id: [id number] IGERATION MECHANIC HELPER documented in this encounter Nursing Notes Phillip Stevenson APRN, C.N.P. - 04/09/2014 10:37 AM CST Ambulatory Patient Education The following Patient Education Materials have been given to the patient: Patient Education Materials: ED/Trauma Influenza ED/Trauma Influenza Influenza (the flu) is an infection that affects your respiratory tract (the mouth, nose, and lungs,and the passages between them). Unlike a cold, the flu can make you very ill. And it can lead to pneumonia, a serious lung infection. For some people, especially older adults, young children, and people with certain chronic conditions, the flu can have serious complications and even be fatal. This sheet tells you more about the flu and what you can do to avoid infection. What Are the Risk Factors for the Flu? Viruses that cause influenza spread through the air in droplets when someone who has the flu coughs,sneezes, laughs, or talks. Anyone can get the flu. But youre more likely to become infected if you: ?? Have a weakened immune system. ?? Have frequent, close contact with young children. ?? Work in a health care setting where you may be exposed to flu germs. ?? Live or work with someone who has the flu. ?? Havent received an annual flu shot. How Does the Flu Spread? The flu is caused by viruses. The viruses spread through the air in droplets when someone who has the flu coughs, sneezes, laughs, or talks. You can become infected when you inhale these viruses directly. You can also become infected when you touch a surface on which the droplets have landed and then transfer the germs to your eyes, nose, or mouth. Touching used tissues, or sharing utensils, drinkingglasses, or a toothbrush with an infected person can expose you to flu viruses, too. What Are the Symptoms of the Flu? Flu symptoms tend to come on quickly and may last a few days to a few weeks. They include: ?? Fever usually higher than 101??F (38.3??C) and chills ?? Sore throat and headache ?? Dry cough ?? Runny nose ?? Tiredness and weakness ?? Muscle aches Factors That Can Make Flu Worse For some people, the flu can be very serious. The risk of complications is greater for: Children under age 5. Adults 50 years of age and older. People with a chronic illness, such as diabetes or heart, kidney, or lung disease. People who live in a longterm or long-term care facility. How Is the Flu Treated? Influenza usually improves on its own. In some cases, your doctor may prescribe an antiviral medication. This may help you get well sooner. For the medication to help, you need to take it as soon as possible after your symptoms start. If you develop pneumonia or other serious illness, hospital care may be needed. Easing Flu Symptoms ?? Drink lots of fluids such as water, juice, and warm soup to prevent dehydration. A good rule is to drink enough so that you urinate your normal amount. ?? 9Get plenty of rest. ?? Ask your doctor about acetaminophen or other medications for fever and pain. Take any medication only as directed. Dont give aspirin to children under age 18. It can cause a rare but serious illnesscalled Bryan syndrome. ?? Call your doctor if your fever rises over 101??F (38.3??C) or you become dizzy, lightheaded, or short of breath. Taking Steps to Protect Others ?? Wash your hands often, especially after coughing or sneezing. Or, clean your hands with an alcohol-based hand gel containing at least 60 percent alcohol. ?? Cough or sneeze into a tissue. Then throw the tissue away and wash your hands. If you dont have atissue, cough and sneeze into the crook of your elbow. ?? Stay home until at least 24 hours after you no longer have a fever or chills. Be sure the fever isnt being hidden by fever-reducing medication (such as ibuprofen). ?? Dont share food, utensils, drinking glasses, or a toothbrush with others. ?? Ask your doctor whether others in your household should receive antiviral medication to help themavoid infection. How Can the Flu Be Prevented? ?? One of the best ways to avoid the flu is to get a flu vaccination each year. Viruses that cause the flu change from year to year. For that reason, doctors recommend getting the flu vaccine each fallor winter. Most often, the vaccine is given as a shot. But some people may receive the vaccine in nasal spray form instead. Your doctor can tell you which vaccine is right for you. ?? Wash your hands often. Frequent handwashing is a proven way to prevent infection. ?? Carry an alcohol-based hand gel containing at least 60 percent alcohol. Use it when you dont haveaccess to soap and water. Alcohol gels kill most germs and are safe for children. ?? Avoid touching your eyes, nose, and mouth. ?? At home and work, clean phones, computer keyboards, and toys often with disinfectant wipes. ?? If possible, avoid close contact with others, especially children. ?? If youre 65 or older, smoke, or have a chronic health condition, ask your doctor if you should receive the pneumonia vaccine. Handwashing Tips Handwashing is one of the best ways to prevent many common infections. If youre caring for or visiting someone with the flu, wash your hands each time you enter and leave the room. Follow these steps: ?? Use warm water and plenty of soap. Work up a good lather. ?? Clean the whole hand, under your nails, between your fingers, and up the wrists. ?? Wash for at least 15 seconds. Dont just wipe-scrub well. ?? Rinse, letting the water run down your fingers, not up your wrists. ?? Dry your hands well. Use a paper towel to turn off the faucet and open the door. Using Alcohol-Based Hand Gels Alcohol-based hand gels are also a good choice for cleaning your hands. Use them when you dont have access to soap and water, or your hands arent visibly dirty. Follow these steps: ?? Squeeze about a tablespoon of gel into the palm of one hand. ?? Rub your hands together briskly, cleaning the backs of your hands, the palms, between your fingers, and up the wrists. ?? Rub until the gel is gone and your hands are completely dry. Preventing Influenza in Healthcare Settings The flu is a special concern for people in [facility]. To help prevent the spread of flu, many hospitals and nursing homes take these steps: Health care providers wash their hands or use an alcohol-based hand auto cleaner before and after treating each patient. People with the flu have private rooms and bathrooms or share a room withsomeone with the same infection. High-risk patients who dont have the flu may receive a flu shot andthe pneumonia vaccine to prevent illness. All health care workers are encouraged or required to haveflu shots. ?? [id number] [facility], [address] [place] [phone]. All rights reserved. This information is not intended as a substitute for professional medical care. Always follow your healthcare professional's instructions. This document has images extracted. Please consider using [employer] for all your patient education needs. Source: [facility] POWERCHART Document Id: [id number] IGERATION MECHANIC HELPER Phillip Stevenson APRN, C.N.P. - 04/09/2014 10:37 AM CST Ambulatory Patient Education The following Patient Education Materials have been given to the patient: Patient Education Materials: ED/Trauma Influenza ED/Trauma Influenza Influenza (the flu) is an infection that affects your respiratory tract (the mouth, nose, and lungs,and the passages between them). Unlike a cold, the flu can make you very ill. And it can lead to pneumonia, a serious lung infection. For some people, especially older adults, young children, and people with certain chronic conditions, the flu can have serious complications and even be fatal. This sheet tells you more about the flu and what you can do to avoid infection. What Are the Risk Factors for the Flu? Viruses that cause influenza spread through the air in droplets when someone who has the flu coughs,sneezes, laughs, or talks. Anyone can get the flu. But youre more likely to become infected if you: ?? Have a weakened immune system. ?? Have frequent, close contact with young children. ?? Work in a health care setting where you may be exposed to flu germs. ?? Live or work with someone who has the flu. ?? Havent received an annual flu shot. How Does the Flu Spread? The flu is caused by viruses. The viruses spread through the air in droplets when someone who has the flu coughs, sneezes, laughs, or talks. You can become infected when you inhale these viruses directly. You can also become infected when you touch a surface on which the droplets have landed and then transfer the germs to your eyes, nose, or mouth. Touching used tissues, or sharing utensils, drinkingglasses, or a toothbrush with an infected person can expose you to flu viruses, too. What Are the Symptoms of the Flu? Flu symptoms tend to come on quickly and may last a few days to a few weeks. They include: ?? Fever usually higher than 101??F (38.3??C) and chills ?? Sore throat and headache ?? Dry cough ?? Runny nose ?? Tiredness and weakness ?? Muscle aches Factors That Can Make Flu Worse For some people, the flu can be very serious. The risk of complications is greater for: Children under age 5. Adults 50 years of age and older. People with a chronic illness, such as diabetes or heart, kidney, or lung disease. People who live in a longterm or long-term care facility. How Is the Flu Treated? Influenza usually improves on its own. In some cases, your doctor may prescribe an antiviral medication. This may help you get well sooner. For the medication to help, you need to take it as soon as possible after your symptoms start. If you develop pneumonia or other serious illness, hospital care may be needed. Easing Flu Symptoms ?? Drink lots of fluids such as water, juice, and warm soup to prevent dehydration. A good rule is to drink enough so that you urinate your normal amount. ?? 9Get plenty of rest. ?? Ask your doctor about acetaminophen or other medications for fever and pain. Take any medication only as directed. Dont give aspirin to children under age 18. It can cause a rare but serious illnesscalled Bryan syndrome. ?? Call your doctor if your fever rises over 101??F (38.3??C) or you become dizzy, lightheaded, or short of breath. Taking Steps to Protect Others ?? Wash your hands often, especially after coughing or sneezing. Or, clean your hands with an alcohol-based hand gel containing at least 60 percent alcohol. ?? Cough or sneeze into a tissue. Then throw the tissue away and wash your hands. If you dont have atissue, cough and sneeze into the crook of your elbow. ?? Stay home until at least 24 hours after you no longer have a fever or chills. Be sure the fever isnt being hidden by fever-reducing medication (such as ibuprofen). ?? Dont share food, utensils, drinking glasses, or a toothbrush with others. ?? Ask your doctor whether others in your household should receive antiviral medication to help themavoid infection. How Can the Flu Be Prevented? ?? One of the best ways to avoid the flu is to get a flu vaccination each year. Viruses that cause the flu change from year to year. For that reason, doctors recommend getting the flu vaccine each fallor winter. Most often, the vaccine is given as a shot. But some people may receive the vaccine in nasal spray form instead. Your doctor can tell you which vaccine is right for you. ?? Wash your hands often. Frequent handwashing is a proven way to prevent infection. ?? Carry an alcohol-based hand gel containing at least 60 percent alcohol. Use it when you dont haveaccess to soap and water. Alcohol gels kill most germs and are safe for children. ?? Avoid touching your eyes, nose, and mouth. ?? At home and work, clean phones, computer keyboards, and toys often with disinfectant wipes. ?? If possible, avoid close contact with others, especially children. ?? If youre 65 or older, smoke, or have a chronic health condition, ask your doctor if you should receive the pneumonia vaccine. Handwashing Tips Handwashing is one of the best ways to prevent many common infections. If youre caring for or visiting someone with the flu, wash your hands each time you enter and leave the room. Follow these steps: ?? Use warm water and plenty of soap. Work up a good lather. ?? Clean the whole hand, under your nails, between your fingers, and up the wrists. ?? Wash for at least 15 seconds. Dont just wipe-scrub well. ?? Rinse, letting the water run down your fingers, not up your wrists. ?? Dry your hands well. Use a paper towel to turn off the faucet and open the door. Using Alcohol-Based Hand Gels Alcohol-based hand gels are also a good choice for cleaning your hands. Use them when you dont have access to soap and water, or your hands arent visibly dirty. Follow these steps: ?? Squeeze about a tablespoon of gel into the palm of one hand. ?? Rub your hands together briskly, cleaning the backs of your hands, the palms, between your fingers, and up the wrists. ?? Rub until the gel is gone and your hands are completely dry. Preventing Influenza in Healthcare Settings The flu is a special concern for people in hospitals [facility]. To help prevent the spread of flu, many hospitals and nursing homes take these steps: Health care providers wash their hands or use an alcohol-based hand auto cleaner before and after treating each patient. People with the flu have private rooms and bathrooms or share a room withsomeone with the same infection. High-risk patients who dont have the flu may receive a flu shot andthe pneumonia vaccine to prevent illness. All health care workers are encouraged or required to haveflu shots. ?? [id number] [facility], [address] [place] [address], [place] [address]. All rights reserved. This information is not intended as a substitute for professional medical care. Always follow your healthcare professional's instructions. This document has images extracted. Please consider using [employer] for all your patient education needs. Source: [facility] ngmocoCHART Document Id: [id number] IGERATION MECHANIC HELPER documented in this encounter Miscellaneous Notes Miscellaneous - Phillip Stevenson APRN, C.N.P. - 04/09/2014 10:38 AM REFRIGERATION MECHANIC HELPER Work Excuse 09 April 2014 JANA DUMONT [address] [place] [id number] Dear JANA DUMONT, You were examined in my office on: 04/09/2014 10:37 Reason for work excuse: Medical Illness ( x ) Yes ( _ ) No Is excused from all work: ( x ) Yes ( _ ) No Return to Work date: April 14, 2014 Notes: Influenza A Sincerely, PHILLIP STEVENSON [address] [place] [address] Electronic Signature Electronically Signed By: PHILLIP STEVENSON CNP On: 09 April 2014 This document has images extracted. Source: [facility] ngmocoCHART Document Id: [id number] Miscellaneous - Phillip Stevenson APRN, C.N.P. - 04/09/2014 10:38 AM REFRIGERATION MECHANIC HELPER Work Excuse 09 April 2014 JANA DUMONT [address] [place] [address] [id number] Dear JANA DUMONT, You were examined in my office on: 04/09/2014 10:37 Reason for work excuse: Medical Illness ( x ) Yes ( _ ) No Is excused from all work: ( x ) Yes ( _ ) No Return to Work date: April 14, 2014 Notes: Influenza A Sincerely, PHILLIP STEVENSON [address] [facility] [place] [address] Electronic Signature Electronically Signed By: PHILLIP STEVENSON CNP On: 09 April 2014 This document has images extracted. Source: [facility] POWERCHART Document Id: [id number] IGERATION MECHANIC HELPER Miscellaneous - Phillip Stevenson APRN, C.N.P. - 04/09/2014 10:37 AM REFRIGERATION MECHANIC HELPER Ambulatory Patient Summary [place] [id number] [facility] [place] [id number] Visit Information Name: JANA DUMONT [facility] Number: [id number] Current Date: 04/09/2014 10:37:17 Physicians Attending Provider: PHILLIP STEVENSON CNP Primary Care Provider: TERRI GIL MD JANA DUMONT has been given the [...] tablet) 1 Tablet(s), Oral, once a day *loratadine (loratadine 10 mg oral tablet) 1 Tablet(s), Oral, once a day oseltamivir (Tamiflu 75 mg oral capsule) 1 cap, Oral, two times a day x 5 day(s) [address] [id number] simvastatin (simvastatin 20 mg oral tablet) 1 Tablet(s), Oral, once a day (at bedtime) needs follow up * You have let us know that you are not taking this medication as listed. Please talk with your primary care provider or the health care provider who prescribed the medication as soon as possible. Stop Taking the Following Medications: Medication list as of 04-09-14 10:37 Attention: If you have any medications at home that are not on this list, DO NOT take them until youcontact your provider for clarification. Give a copy of your medication list to your primary care provider. Update your medication list any time medications or doses are changed and carry your medication list at all times in case of emergency. Electronically Signed By: PHILLIP STEVENSON CNP Signed On:09-APR-2014 10:36:53 Your Allergies & Intolerances Substance Reaction Symptoms [...] 05/26/11 postive PPD; 11/16/11 discontinued medication 11/06/2011 Your Upcoming Appointments Date Time Location Provider No Appointments found Attention: Contact your local Clinic if further appointment detail needed. Influenza Influenza (the flu) is an infection that affects your respiratory tract (the mouth, nose, and lungs,and the passages between them). Unlike a cold, the flu can make you very ill. And it can lead to pneumonia, a serious lung infection. For some people, especially older adults, young children, and people with certain chronic conditions, the flu can have serious complications and even be fatal. This sheet tells you more about the flu and what you can do to avoid infection. What Are the Risk Factors for the Flu? Viruses that cause influenza spread through the air in droplets when someone who has the flu coughs,sneezes, laughs, or talks. Anyone can get the flu. But youre more likely to become infected if you: ?? Have a weakened immune system. ?? Have frequent, close contact with young children. ?? Work in a health care setting where you may be exposed to flu germs. ?? Live or work with someone who has the flu. ?? Havent received an annual flu shot. How Does the Flu Spread? The flu is caused by viruses. The viruses spread through the air in droplets when someone who has the flu coughs, sneezes, laughs, or talks. You can become infected when you inhale these viruses directly. You can also become infected when you touch a surface on which the droplets have landed and then transfer the germs to your eyes, nose, or mouth. Touching used tissues, or sharing utensils, drinkingglasses, or a toothbrush with an infected person can expose you to flu viruses, too. What Are the Symptoms of the Flu? Flu symptoms tend to come on quickly and may last a few days to a few weeks. They include: ?? Fever usually higher than 101?F (38.3?C) and chills ?? Sore throat and headache ?? Dry cough ?? Runny nose ?? Tiredness and weakness ?? Muscle aches Factors That Can Make Flu Worse For some people, the flu can be very serious. The risk of complications is greater for: Children under age 5. Adults 50 years of age and older. People with a chronic illness, such as diabetes or heart, kidney, or lung disease. People who live in a longterm or long-term care facility. How Is the Flu Treated? Influenza usually improves on its own. In some cases, your doctor may prescribe an antiviral medication. This may help you get well sooner. For the medication to help, you need to take it as soon as possible after your symptoms start. If you develop pneumonia or other serious illness, hospital care may be needed. Easing Flu Symptoms ?? Drink lots of fluids such as water, juice, and warm soup to prevent dehydration. A good rule is to drink enough so that you urinate your normal amount. ?? Get plenty of rest. ?? Ask your doctor about acetaminophen or other medications for fever and pain. Take any medication only as directed. Dont give aspirin to children under age 18. It can cause a rare but serious illnesscalled Bryan syndrome. ?? Call your doctor if your fever rises over 101?F (38.3?C) or you become dizzy, lightheaded, or short of breath. Taking Steps to Protect Others ?? Wash your hands often, especially after coughing or sneezing. Or, clean your hands with an alcohol-based hand gel containing at least 60 percent alcohol. ?? Cough or sneeze into a tissue. Then throw the tissue away and wash your hands. If you dont have atissue, cough and sneeze into the crook of your elbow. ?? Stay home until at least 24 hours after you no longer have a fever or chills. Be sure the fever isnt being hidden by fever-reducing medication (such as ibuprofen). ?? Dont share food, utensils, drinking glasses, or a toothbrush with others. ?? Ask your doctor whether others in your household should receive antiviral medication to help themavoid infection. How Can the Flu Be Prevented? ?? One of the best ways to avoid the flu is to get a flu vaccination each year. Viruses that cause the flu change from year to year. For that reason, doctors recommend getting the flu vaccine each fallor winter. Most often, the vaccine is given as a shot. But some people may receive the vaccine in nasal spray form instead. Your doctor can tell you which vaccine is right for you. ?? Wash your hands often. Frequent handwashing is a proven way to prevent infection. ?? Carry an alcohol-based hand gel containing at least 60 percent alcohol. Use it when you dont haveaccess to soap and water. Alcohol gels kill most germs and are safe for children. ?? Avoid touching your eyes, nose, and mouth. ?? At home and work, clean phones, computer keyboards, and toys often with disinfectant wipes. ?? If possible, avoid close contact with others, especially children. ?? If youre 65 or older, smoke, or have a chronic health condition, ask your doctor if you should receive the pneumonia vaccine. Handwashing Tips Handwashing is one of the best ways to prevent many common infections. If youre caring for or visiting someone with the flu, wash your hands each time you enter and leave the room. Follow these steps: ?? Use warm water and plenty of soap. Work up a good lather. ?? Clean the whole hand, under your nails, between your fingers, and up the wrists. ?? Wash for at least 15 seconds. Dont just wipe--scrub well. ?? Rinse, letting the water run down your fingers, not up your wrists. ?? Dry your hands well. Use a paper towel to turn off the faucet and open the door. Using Alcohol-Based Hand Gels Alcohol-based hand gels are also a good choice for cleaning your hands. Use them when you dont have access to soap and water, or your hands arent visibly dirty. Follow these steps: ?? Squeeze about a tablespoon of gel into the palm of one hand. ?? Rub your hands together briskly, cleaning the backs of your hands, the palms, between your fingers, and up the wrists. ?? Rub until the gel is gone and your hands are completely dry. Preventing Influenza in Healthcare Settings The flu is a special concern for people in [facility]. To help prevent the spread of flu, many hospitals and nursing homes take these steps: Health care providers wash their hands or use an alcohol-based hand auto cleaner before and after treating each patient. People with the flu have private rooms and bathrooms or share a room withsomeone with the same infection. High-risk patients who dont have the flu may receive a flu shot andthe pneumonia vaccine to prevent illness. All health care workers are encouraged or required to haveflu shots. ?? [id number] [place] [address]. All rights reserved. This information is not intended as a substitute for professional medical care. Always follow your healthcare professional's instructions. Your Goals/Additional instructions: This document has images extracted. Please consider using [employer] for all your patient education needs. Source: [facility] POWERCHART Document Id: [id number] IGERATION MECHANIC HELPER Miscellaneous - Phillip Stevenson APRN, C.N.P. - 04/09/2014 10:37 AM REFRIGERATION MECHANIC HELPER Ambulatory Patient Summary [address] [id number] Visit Information Name: JANA DUMONT [facility] Number: [id number] Current Date: 04/09/2014 10:37:17 Physicians Attending Provider: PHILLIP STEVENSON CNP Primary Care Provider: TERRI GIL MD AJNA DUMONT has been given the following list [...] tablet) 1 Tablet(s), Oral, once a day *loratadine (loratadine 10 mg oral tablet) 1 Tablet(s), Oral, once a day oseltamivir (Tamiflu 75 mg oral capsule) 1 cap, Oral, two times a day x 5 day(s) New Routed to [address] [id number] simvastatin (simvastatin 20 mg oral tablet) 1 Tablet(s), Oral, once a day (at bedtime) needs follow up * You have let us know that you are not taking this medication as listed. Please talk with your primary care provider or the health care provider who prescribed the medication as soon as possible. Stop Taking the Following Medications: Medication list as of 04-09-14 10:37 Attention: If you have any medications at home that are not on this list, DO NOT take them until youcontact your provider for clarification. Give a copy of your medication list to your primary care provider. Update your medication list any time medications or doses are changed and carry your medication list at all times in case of emergency. Electronically Signed By: PHILLIP STEVENSON CNP Signed On:09-APR-2014 10:36:53 Your Allergies & Intolerances Substance Reaction Symptoms [...] 05/26/11 postive PPD; 11/16/11 discontinued medication 11/06/2011 Your Upcoming Appointments Date Time Location Provider No Appointments found Attention: Contact your local Clinic if further appointment detail needed. Influenza Influenza (the flu) is an infection that affects your respiratory tract (the mouth, nose, and lungs,and the passages between them). Unlike a cold, the flu can make you very ill. And it can lead to pneumonia, a serious lung infection. For some people, especially older adults, young children, and people with certain chronic conditions, the flu can have serious complications and even be fatal. This sheet tells you more about the flu and what you can do to avoid infection. What Are the Risk Factors for the Flu? Viruses that cause influenza spread through the air in droplets when someone who has the flu coughs,sneezes, laughs, or talks. Anyone can get the flu. But youre more likely to become infected if you: ?? Have a weakened immune system. ?? Have frequent, close contact with young children. ?? Work in a health care setting where you may be exposed to flu germs. ?? Live or work with someone who has the flu. ?? Havent received an annual flu shot. How Does the Flu Spread? The flu is caused by viruses. The viruses spread through the air in droplets when someone who has the flu coughs, sneezes, laughs, or talks. You can become infected when you inhale these viruses directly. You can also become infected when you touch a surface on which the droplets have landed and then transfer the germs to your eyes, nose, or mouth. Touching used tissues, or sharing utensils, drinkingglasses, or a toothbrush with an infected person can expose you to flu viruses, too. What Are the Symptoms of the Flu? Flu symptoms tend to come on quickly and may last a few days to a few weeks. They include: ?? Fever usually higher than 101?F (38.3?C) and chills ?? Sore throat and headache ?? Dry cough ?? Runny nose ?? Tiredness and weakness ?? Muscle aches Factors That Can Make Flu Worse For some people, the flu can be very serious. The risk of complications is greater for: Children under age 5. Adults 50 years of age and older. People with a chronic illness, such as diabetes or heart, kidney, or lung disease. People who live in a longterm or long-term care facility. How Is the Flu Treated? Influenza usually improves on its own. In some cases, your doctor may prescribe an antiviral medication. This may help you get well sooner. For the medication to help, you need to take it as soon as possible after your symptoms start. If you develop pneumonia or other serious illness, hospital care may be needed. Easing Flu Symptoms ?? Drink lots of fluids such as water, juice, and warm soup to prevent dehydration. A good rule is to drink enough so that you urinate your normal amount. ?? Get plenty of rest. ?? Ask your doctor about acetaminophen or other medications for fever and pain. Take any medication only as directed. Dont give aspirin to children under age 18. It can cause a rare but serious illnesscalled Bryan syndrome. ?? Call your doctor if your fever rises over 101?F (38.3?C) or you become dizzy, lightheaded, or short of breath. Taking Steps to Protect Others ?? Wash your hands often, especially after coughing or sneezing. Or, clean your hands with an alcohol-based hand gel containing at least 60 percent alcohol. ?? Cough or sneeze into a tissue. Then throw the tissue away and wash your hands. If you dont have atissue, cough and sneeze into the crook of your elbow. ?? Stay home until at least 24 hours after you no longer have a fever or chills. Be sure the fever isnt being hidden by fever-reducing medication (such as ibuprofen). ?? Dont share food, utensils, drinking glasses, or a toothbrush with others. ?? Ask your doctor whether others in your household should receive antiviral medication to help themavoid infection. How Can the Flu Be Prevented? ?? One of the best ways to avoid the flu is to get a flu vaccination each year. Viruses that cause the flu change from year to year. For that reason, doctors recommend getting the flu vaccine each fallor winter. Most often, the vaccine is given as a shot. But some people may receive the vaccine in nasal spray form instead. Your doctor can tell you which vaccine is right for you. ?? Wash your hands often. Frequent handwashing is a proven way to prevent infection. ?? Carry an alcohol-based hand gel containing at least 60 percent alcohol. Use it when you dont haveaccess to soap and water. Alcohol gels kill most germs and are safe for children. ?? Avoid touching your eyes, nose, and mouth. ?? At home and work, clean phones, computer keyboards, and toys often with disinfectant wipes. ?? If possible, avoid close contact with others, especially children. ?? If youre 65 or older, smoke, or have a chronic health condition, ask your doctor if you should receive the pneumonia vaccine. Handwashing Tips Handwashing is one of the best ways to prevent many common infections. If youre caring for or visiting someone with the flu, wash your hands each time you enter and leave the room. Follow these steps: ?? Use warm water and plenty of soap. Work up a good lather. ?? Clean the whole hand, under your nails, between your fingers, and up the wrists. ?? Wash for at least 15 seconds. Dont just wipe--scrub well. ?? Rinse, letting the water run down your fingers, not up your wrists. ?? Dry your hands well. Use a paper towel to turn off the faucet and open the door. Using Alcohol-Based Hand Gels Alcohol-based hand gels are also a good choice for cleaning your hands. Use them when you dont have access to soap and water, or your hands arent visibly dirty. Follow these steps: ?? Squeeze about a tablespoon of gel into the palm of one hand. ?? Rub your hands together briskly, cleaning the backs of your hands, the palms, between your fingers, and up the wrists. ?? Rub until the gel is gone and your hands are completely dry. Preventing Influenza in Healthcare Settings The flu is a special concern for people in hospitals [facility]. To help prevent the spread of flu, many hospitals and nursing homes take these steps: Health care providers wash their hands or use an alcohol-based hand auto cleaner before and after treating each patient. People with the flu have private rooms and bathrooms or share a room withsomeone with the same infection. High-risk patients who dont have the flu may receive a flu shot andthe pneumonia vaccine to prevent illness. All health care workers are encouraged or required to haveflu shots. ?? [phone] Cristina Pena, [address] [place] [address], [place] [address]. All rights reserved. This information is not intended as a substitute for professional medical care. Always follow your healthcare professional's instructions. Your Goals/Additional instructions: This document has images extracted. Please consider using [employer] for all your patient education needs. Source: [facility] POWERCHART Document Id: [id number] IGERATION MECHANIC HELPER Miscellaneous - Phillip Stevenson APRN, C.N.P. - 04/09/2014 10:37 AM REFRIGERATION MECHANIC HELPER Ambulatory Discharge Medication List [address] [id number] Visit Information Name: JANA DUMONT [facility] Number: [id number] Visit Date: 04/09/2014 10:37:16 Attending Provider: PHILLIP STEVENSON [facility] Primary Care Provider: TERRI GIL MD JANA DUMONTTH has been given the [...] tablet) 1 Tablet(s), Oral, once a day *loratadine (loratadine 10 mg oral tablet) 1 Tablet(s), Oral, once a day oseltamivir (Tamiflu 75 mg oral capsule) 1 cap, Oral, two times a day x 5 day(s) New Routed to [address] [id number] simvastatin (simvastatin 20 mg oral tablet) 1 Tablet(s), Oral, once a day (at bedtime) needs follow up * You have let us know that you are not taking this medication as listed. Please talk with your primary care provider or the health care provider who prescribed the medication as soon as possible. Stop Taking the Following Medications: Medication list as of 04-09-14 10:37 Attention: If you have any medications at home that are not on this list, DO NOT take them until youcontact your provider for clarification. Give a copy of your medication list to your primary care provider. Update your medication list any time medications or doses are changed and carry your medication list at all times in case of emergency. Electronically Signed By: PHILLIP STEVENSON CNP Signed On:09-APR-2014 10:36:53 Additional Information: Source: [facility] POWERCHART Document Id: [id number] IGERATION MECHANIC HELPER Miscellaneous - Phillip Stevenson APRN, C.N.P. - 04/09/2014 10:37 AM REFRIGERATION MECHANIC HELPER Ambulatory Discharge Medication List [address] [place] [id number] Visit Information Name: JANA DUMONT [facility] Number: [id number] Visit Date: 04/09/2014 10:37:16 Attending Provider: PHILLIP STEVENSON CNP Primary Care Provider: TERRI GIL MD TIM JANA EMERSON has been given [...] tablet) 1 Tablet(s), Oral, once a day *loratadine (loratadine 10 mg oral tablet) 1 Tablet(s), Oral, once a day oseltamivir (Tamiflu 75 mg oral capsule) 1 cap, Oral, two times a day x 5 day(s) New Routed to [address] [id number] simvastatin (simvastatin 20 mg oral tablet) 1 Tablet(s), Oral, once a day (at bedtime) needs follow up * You have let us know that you are not taking this medication as listed. Please talk with your primary care provider or the health care provider who prescribed the medication as soon as possible. Stop Taking the Following Medications: Medication list as of 04-09-14 10:37 Attention: If you have any medications at home that are not on this list, DO NOT take them until youcontact your provider for clarification. Give a copy of your medication list to your primary care provider. Update your medication list any time medications or doses are changed and carry your medication list at all times in case of emergency. Electronically Signed By: PHILLIP STEVENSON CELL TUBER MACHINE Signed On:09-APR-2014 10:36:53 Additional Information: Source: [facility] POWERCHART Document Id: [id number] IGERATION MECHANIC HELPER Miscellaneous - Ana Sosa, LPeymanP.N. - 04/09/2014 10:02 AM CST Adult Dough Mixing Machine Operator Intake/History Adult Dough Mixing Machine Operator Intake/History Entered On: 04/09/2014 10:05 REFRIGERATION MECHANIC HELPER Performed On: 04/09/2014 10:02 REFRIGERATION MECHANIC HELPER by ANA SOSA LPN Intake Chief Complaint : Started on Monday with a lower backache. Fever started on Monday of 102. Started on Monday with vomiting. Body aches Temperature Core : 38.8 DegC(Converted to: 101.8 DegF) (HI) Peripheral Pulse Rate : 88 /min Respiratory Rate : 20 /min Heart Rhythm : Regular Systolic Blood Pressure : 110 mmHg Diastolic Blood Pressure : 76 mmHg NIBP Mean : 87 mmHg BP Location : Left upper extremity Blood Pressure Cuff Size : Regular SpO2 : 96 % Oxygen Therapy : Room air Height : 160.5 cm(Converted to: 5 ft 3 inch(es), 63 inch(es)) Actual Weight : 98 kg(Converted to: 216 lb 1 oz) Weight Source : Standing scale Dosing Weight Clinic : 98 kg Clinic BSA : 2.09 Body Mass Index : 38.04 kg/m2 ANA SOSA LPN - 04/09/2014 10:02 REFRIGERATION MECHANIC HELPER General Info Information Given By : Patient Languages : Indian Is Patient Female and 13-50 no hysterectomy : Yes Status : Patient denies Are you ? : No ANA SOSA LPN - 04/09/2014 10:02 REFRIGERATION MECHANIC HELPER Subjective Pain Symptoms : No ANA SOSA LPN - 04/09/2014 10:02 REFRIGERATION MECHANIC HELPER Dependent Habits Tobacco Use/Currently Using : No Exposure to Tobacco Smoke : Other: never Smoking Status : Never smoker ANA SOSA LPN - 04/09/2014 10:02 REFRIGERATION MECHANIC HELPER Caffeine Use Grid Caffeine Use : None ANA SOSA LPN - 04/09/2014 10:02 REFRIGERATION MECHANIC HELPER Recreational Drug Use Grid Drug Use : None ANA SOSA LPN - 04/09/2014 10:02 REFRIGERATION MECHANIC HELPER ID Screen Travel Within Last 21 Days : No ANA SOSA LPN - 04/09/2014 10:02 REFRIGERATION MECHANIC HELPER [facility] Document Id: [id number] REFRIGERATION MECHANIC HELPER!40 IGERATION MECHANIC HELPER Miscellaneous - Ana Sosa L.P.N. - 04/09/2014 10:02 AM CST Adult Dough Mixing Machine Operator Intake/History Adult Dough Mixing Machine Operator Intake/History Entered On: 04/09/2014 10:05 REFRIGERATION MECHANIC HELPER Performed On: 04/09/2014 10:02 REFRIGERATION MECHANIC HELPER by ANA SOSA LPN Intake Chief Complaint : Started on Monday with a lower backache. Fever started on Monday of . Started on Monday with vomiting. Body aches Temperature Core : 38.8 DegC(Converted to: 101.8 DegF) (HI) Peripheral Pulse Rate : 88 /min Respiratory Rate : 20 /min Heart Rhythm : Regular Systolic Blood Pressure : 110 mmHg Diastolic Blood Pressure : 76 mmHg NIBP Mean : 87 mmHg BP Location : Left upper extremity Blood Pressure Cuff Size : Regular SpO2 : 96 % Oxygen Therapy : Room air Height : 160.5 cm(Converted to: 5 ft 3 inch(es), 63 inch(es)) Actual Weight : 98 kg(Converted to: 216 lb 1 oz) Weight Source : Standing scale Dosing Weight Clinic : 98 kg Clinic BSA : 2.09 Body Mass Index : 38.04 kg/m2 ANA SOSA LPN - 04/09/2014 10:02 REFRIGERATION MECHANIC HELPER General Info Information Given By : Patient Languages : Indian Is Patient Female and 13-50 no hysterectomy : Yes Status : Patient denies Are you ? : No ANA SOSA LPN - 04/09/2014 10:02 REFRIGERATION MECHANIC HELPER Subjective Pain Symptoms : No ANA SOSA LPN - 04/09/2014 10:02 REFRIGERATION MECHANIC HELPER Dependent Habits Tobacco Use/Currently Using : No Exposure to Tobacco Smoke : Other: never Smoking Status : Never smoker ANA SOSA LPN - 04/09/2014 10:02 REFRIGERATION MECHANIC HELPER Caffeine Use Grid Caffeine Use : None ANA SOSA LPN - 04/09/2014 10:02 REFRIGERATION MECHANIC HELPER Recreational Drug Use Grid Drug Use : None ANA SOSA LPN - 04/09/2014 10:02 REFRIGERATION MECHANIC HELPER ID Screen Travel Within Last 21 Days : No ANA SOSA LPN - 04/09/2014 10:02 REFRIGERATION MECHANIC HELPER Source: [facility] POWERCHART Document Id: [id number] REFRIGERATION MECHANIC HELPER!40 IGERATION MECHANIC HELPER documented in this encounter Plan of Treatment Not on filedocumented as of this encounter Procedures Procedure Name Priority Date/Time Associated Diagnosis Comme nts INFLUENZA A/B Routine 04/09/2014 10:12 AM Results for this REFRIGERATION MECHANIC HELPER procedure are i n the results section . documented in this encounter Results (ABNORMAL) Influenza A/B (04/09/2014 10:12 AM REFRIGERATION MECHANIC HELPER) [facility] Method Time Signature HXInfluenza A (POSITIVE POWERCHART and B AG ) Comment: If result is negative: The sensitivity/specificity of the Influ zain A screening test is 80% and 93% respectively. The sensitivity/specificity of the Influ zain B screening test is 65% and 97% respectively. If further testing is indicated, please call the laboratory to order the referred MML PCR test. HXFinal Positive for Influenzae A protein antigen. POWERCHART HXFinal This result does not identify any specific Influenzae A POWERCHART virus subtype. HXFinal Negative for Influenzae B protein antigen. POWERCHART HXFinal Reference: Negative for Influenzae A and Influenzae B POWERCHART protein antigens. Specimen (Source) Anatomical Collection Method Collection Time Re ceived Time Location / / Volume Laterality Nasopharyngeal 04/09/2014 10:12 AM REFRIGERATION MECHANIC HELPER Phillip Stevenson APRN, C.N.P. LAB MICROBIOLOGY - GENERAL ORDERABLES Performing Organization Address City/State/ZIP Code Phon e Number POWERCHART documented in this encounter Visit Diagnoses Not on filedocumented in this encounter Additional Health Concerns Assessment Noted Time PHQ-9 Depression Total Score: 7 11/21/2013 6:19 PM CDT documented as of this encounter
--- OUTSIDE RECORDS SUMMARY | 2021-12-15 01:21 | XMS_ITS | Encounter Summary ---
:1975 Author Organization [facility] Address [address] [place] [address] Care Team Providers Name Role Phone Unavailable Primary Care Provider Unavailable Encounter Details Date Type Department Care Team Description 12/14/2012 Hospital Encounter HX [facility] Jarad Hdez M.D. [address] [place], [place] [address] (Wo rk) Social History Tobacco Use Types Packs/Day Years Used Date Smoking Tobacco: Never Assessed Sex Assigned at Date Recorded Not on file documented as of this encounter Last Filed Vital Signs Vital Sign Reading Time Taken Comments Blood Pressure 120/80 12/14/2012 9:06 AM CDT Pulse 80 12/14/2012 9:06 AM CDT Temperature - - Respiratory Rate 16 12/14/2012 9:06 AM CDT Oxygen Saturation - - Inhaled Oxygen Concentration - - Weight 94.5 kg (208 lb 5.4 oz) 12/14/2012 9:06 AM CDT Height - - Body Mass Index 36.01 06/28/2012 9:39 AM SPEECH COMMUNICATION PROFESSOR documented in this encounter Progress Notes Naz Hdez M.D. - 12/14/2012 8:59 AM CDT [id number] CHIEF COMPLAINT/REASON FOR VISIT Med check. HISTORY OF PRESENT ILLNESS Unggsg[age]spr[age]eg[age]-old female presents to clinic for med check. Is fasting today. Also has been having some stress incontinence. Is wearing a pad only to exercise. Is planning to have a well-woman exam sometime in the future. Cannot recall when she last saw her technical operations vice president but believes it was in 2011. Has had history of a positive PPD and took a partial course of INH. Did not tolerate the product and has had episodic stable chest x-rays since the diagnosis. EMR reviewed. CURRENT MEDICATIONS Simvastatin 20 mg each day. Fish oil to be discontinued in the near future. Ditropan 5 mg 3 times per day as needed for stress incontinence symptoms. ALLERGIES No known drug allergies. SYSTEMS REVIEW CONSTITUTIONAL: No fevers, chills, night sweats. Some slow weight gain over the years. EYES: No difficulties with blurred vision. Last ophthalmic exam, coming up December 2012. ENT: No hearing loss or oral problems. Last dental exam 08/2012, goes every 6 months. See the chart. CARDIOVASCULAR: No chest pain, palpitations, edema or true claudication. RESPIRATORY: No cough, wheeze, hemoptysis or shortnessof breath. GASTROINTESTINAL: No abdominal pain, hematemesis, melena, dysphagia or change in bowel habits. GENITOURINARY: No nocturia, hematuria, incontinence or dysuria. See above. Monthly 5-day menses. Using condoms for contraception. MUSCULOSKELETAL: No joint pain, swelling, stiffness or obvious deformities. INTEGUMENTARY: No rashes or pruritus. See the chart. NEURO: No seizures or syncopal events.PSYCHIATRIC: No history of anxiety or depression. No problems with sleep. See the chart. ENDOCRINE: No history of diabetes or thyroid problems. HEMATOLOGIC/LYMPHATIC: No history of anemia or bleeding. A LLERGIC/IMMUNOLOGIC: Please see the chart. PAST MEDICAL/SURGICAL HISTORY SURGERIES: 1. Basal cell carcinoma removed from the right breast and other areas on her body 2004. Last dermatology appointment being 2007. 2. Colposcopy secondary to abnormal Pap smear with no recurrence 1996. Other hospitalizations: G2, P2 vaginal delivery. Other injuries: None. Other major illnesses: 1. Premenstrual syndrome with anxiety and depression. 2. Hyperlipidemia. 3. Overweight. 4. History of basal cell carcinoma followed by technical operations vice president, Dr. Phyllis Mancuso. 5. Impaired fasting glucose in 2008 currently stable. 6. Palpitations. 7. Stress incontinence. 8. 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 PREVENTIVE SERVICES Tobacco use: None. Mammogram: Non applicable secondary to stated age. Pap smear: 04/20/2011. Chlamydia: Non applicable secondary to stated age. Colon screening: Non applicable secondary to stated age. Depression: No. Asthma: No. Lipids: 12/14/2012. Tetanus: 05/03/2010. Pneumovax: Non applicable secondary to stated age. Influenza: No applicable secondary to time of year. DEXA scan: Non applicable secondary to stated age. SOCIAL HISTORY Alcohol: A few times per year. No other social drugs. Soda 4 times a week. Wears a seatbelt. Calciumintake adequate. Exercises with swimming, walking, treadmill 3 to 4 times per week. FAMILY HISTORY Mother has hyperlipidemia status post an MO at age 47. Father status post melanoma [...] Two children in good health. VITAL SIGNS WEIGHT: 94.5 kg. TEMPERATURE: 36.4. RESPIRATORY RATE: 16. PULSE: 80. BLOOD PRESSURE: 120/80. PHYSICAL EXAMINATION GENERAL: Neatly dressed. Well groomed. HEAD: No evidence of trauma, tenderness or masses. EYES: PERRLA. Full EOM. Funduscopic exam grossly normal. ENT: Ears: Tympanic membranes are carey. Subjectively intact hearing. Nose: Mucosal membranes pink and moist. Septum is midline. Oral: No exudates. Teeth in good condition. No pharyngeal erythema. Neck:Supple. Trachea midline. LYMPH NODES: No cervical or femoral adenopathy. THYROID: No thyroid masses, tenderness or enlargement. HEART: Regular rate and rhythm. No clicks, rubs or murmurs. LUNGS: Clear to auscultation. No palpable chest wall masses. ABDOMEN: Soft, nontender, bowel sounds present, no organomegaly. EXTREMITIES: No ankle edema. MENTAL: Oriented times three. GAIT: Smooth, easy. IMPRESSION/REPORT/PLAN 1. Hyperlipidemia. 2. History of hyperglycemia. 3. Latent tuberculosis without outright tuberculosis. 4. Overweight. 5. Female stress incontinence. PLAN: Discussed chest x-ray. Will recommend periodic evaluations. Would recommend following up with Dr. Phyllis Mancuso, technical operations vice president, secondary to her history of skin cancer. Risks and benefits of medications discussed. All questions answered. Will follow up laboratory evaluation with AST, basic metabolic profile, urinalysis, lipid profile. Arrange for a well-woman exam after she has trialed the Ditropan for a few weeks. If she is utilizing the product on a regular basis may need to consider a long-acting medication. She is comfortable with this plan. Otherwise as noted. Naz Hdez M.D./amadeo Electronically Signed By: NAZ HDEZ MD On: 12/19/2012 11:34 AM Modified by and Electronically Signed by: NAZ HDEZ MD On: 12/19/2012 11:34 AM Source: [facility] Document Id: [id number] documented in this encounter Nursing Notes Chandler Younger L.P.N. - 12/20/2012 9:09 AM CDT Labs 12-14-12 Result card sent. Electronically Signed By: CHANDLER YOUNGER LPN On: 12/20/2012 09:09 AM [facility] Document Id: [id number] Chandler Younger L.P.N. - 12/20/2012 9:09 AM CDT Labs 12-14-12 Result card sent. Electronically Signed By: CHANDLER YOUNGER LPN On: 12/20/2012 09:09 AM [facility] Document Id: [id number] documented in this encounter Miscellaneous Notes Miscellaneous - Naz Hdez M.D. - 12/14/2012 12:40 PM CDT Ambulatory Patient Summary [address] [address] Visit Information Name: JANA DUMONT [facility] Number: [id number] Current Date: 12/14/2012 12:40:35 Physicians Attending Provider: NAZ HDEZ MD Primary Care Provider: NAZ HDEZ MD Your Medications Here is a list of your medications. It is important to take your medications as directed. Use a pillbox or chart to help remind you to take your medications. Please let your doctor or nurse know if you have problems taking your medications. Medication/Strength Dose Route Frequency Indications/Special Instructions/Comments/Notes simvastatin (simvastatin 20 mg oral tablet) 20 mg Oral once a day (at bedtime) needs follow up oxybutynin (Ditropan 5 mg oral tablet) See Instructions 1 tab PO TID as needed for leakage Attention: If you have any medications at home that are not on this list, DO NOT take them until youcontact your provider for clarification. Your Allergies & Intolerances Substance Reaction Symptoms [...] 11/06/2011 Your Upcoming Appointments Date Time Location Reason Provider No Appointments found Your Goals/Additional instructions: Source: [facility] Document Id: [id number] Miscellaneous - Naz Hdez M.D. - 12/14/2012 12:40 PM CDT Ambulatory Patient Summary [address] [place] [address] Visit Information Name: JANA DUMONT [facility] Number: [id number] Current Date: 12/14/2012 12:40:35 Physicians Attending Provider: NAZ HDEZ MD Primary Care Provider: NAZ HDEZ MD Your Medications Here is a list of your medications. It is important to take your medications as directed. Use a pillbox or chart to help remind you to take your medications. Please let your doctor or nurse know if you have problems taking your medications. Medication/Strength Dose Route Frequency Indications/Special Instructions/Comments/Notes simvastatin (simvastatin 20 mg oral tablet) 20 mg Oral once a day (at bedtime) needs follow up oxybutynin (Ditropan 5 mg oral tablet) See Instructions 1 tab PO TID as needed for leakage Attention: If you have any medications at home that are not on this list, DO NOT take them until youcontact your provider for clarification. Your Allergies & Intolerances Substance Reaction Symptoms [...] 11/06/2011 Your Upcoming Appointments Date Time Location Reason Provider No Appointments found Your Goals/Additional instructions: Source: [facility] POWERCHART Document Id: [id number] Miscellaneous - Naz Hdez M.D. - 12/14/2012 12:40 PM CDT Ambulatory Depart Summary [address] [address] Visit Information Name: JANA DUMONT [facility] Number: [id number] Visit Date: 12/14/2012 12:40:35 Attending Provider: NAZ HDEZ MD Primary Care Provider: NAZ HDEZ MD JANA DUMONT has been given the following list of medications: Your Medications It is important to take your medications as directed. Use a pill box or chart to help remind you to take your medications. Please let your doctor or nurse know if you have problems taking your medications. Medication/Strength Dose Route Frequency Indications/Special Instructions/Comments/Notes simvastatin (simvastatin 20 mg oral tablet) 20 mg Oral once a day (at bedtime) needs follow up oxybutynin (Ditropan 5 mg oral tablet) See Instructions 1 tab PO TID as needed for leakage Attention: If you have any medications at home that are not on this list, DO NOT take them until youcontact your provider for clarification. Additional Information: Source: [facility] POWERCHART Document Id: [id number] Miscellaneous - Naz Hdez M.D. - 12/14/2012 12:40 PM CDT Ambulatory Depart Summary [address] [address] Visit Information Name: JANA DUMONT [facility] Number: [id number] Visit Date: 12/14/2012 12:40:35 Attending Provider: NAZ HDEZ MD Primary Care Provider: NAZ HDEZ MD JANA DUMONT has been given the following list of medications: Your Medications It is important to take your medications as directed. Use a pill box or chart to help remind you to take your medications. Please let your doctor or nurse know if you have problems taking your medications. Medication/Strength Dose Route Frequency Indications/Special Instructions/Comments/Notes simvastatin (simvastatin 20 mg oral tablet) 20 mg Oral once a day (at bedtime) needs follow up oxybutynin (Ditropan 5 mg oral tablet) See Instructions 1 tab PO TID as needed for leakage Attention: If you have any medications at home that are not on this list, DO NOT take them until youcontact your provider for clarification. Additional Information: Source: [facility] POWERCHART Document Id: [id number] Jameecellprudence - Chandler Younger L.PPeymanNPeyman - 12/14/2012 9:06 AM CDT Adult Digital Project Coordinator Intake/History Adult Digital Project Coordinator Intake/History Entered On: 12/14/2012 9:07 CDT Performed On: 12/14/2012 9:06 CDT by CHANDLER YOUNGER LPN Intake Chief Complaint : MED CHECK Temperature Core : 36.4 DegC(Converted to: 97.5 DegF) (LOW) Peripheral Pulse Rate : 80 /min Respiratory Rate : 16 /min Systolic Blood Pressure : 120 mmHg Diastolic Blood Pressure : 80 mmHg NIBP Mean : 93 mmHg BP Location : Left upper extremity Blood Pressure Cuff Size : Regular Actual Weight : 94.5 kg(Converted to: 208 lb 5 oz) Dosing Weight Clinic : 94.5 kg CHANDLER YOUNGER LPN - 12/14/2012 9:06 CDT General Info Languages : Mongolian CHANDLER YOUNGER LPN - 12/14/2012 9:06 CDT Subjective Pain Symptoms : No CHANDLER YUONGER LPN - 12/14/2012 9:06 CDT Dependent Habits Tobacco Use/Currently Using : No Exposure to Tobacco Smoke : Other: never Smoking Status : Never smoker CHANDLER YOUNGER LPN - 12/14/2012 9:06 CDT Caffeine Use Grid Caffeine Use : None CHANDLER YOUNGER LPN - 12/14/2012 9:06 CDT Recreational Drug Use Grid Drug Use : None CHANDLER YOUNGER LPN - 12/14/2012 9:06 CDT [facility] Document Id: [id number] CDT!27 Miscellaneous - Chandler Younger L.P.N. - 12/14/2012 9:06 AM CDT Adult Digital Project Coordinator Intake/History Adult Digital Project Coordinator Intake/History Entered On: 12/14/2012 9:07 CDT Performed On: 12/14/2012 9:06 CDT by CHANDLER YOUNGER LPN Intake Chief Complaint : MED CHECK Temperature Core : 36.4 DegC(Converted to: 97.5 DegF) (LOW) Peripheral Pulse Rate : 80 /min Respiratory Rate : 16 /min Systolic Blood Pressure : 120 mmHg Diastolic Blood Pressure : 80 mmHg NIBP Mean : 93 mmHg BP Location : Left upper extremity Blood Pressure Cuff Size : Regular Actual Weight : 94.5 kg(Converted to: 208 lb 5 oz) Dosing Weight Clinic : 94.5 kg CHANDLER YOUNGER LPN - 12/14/2012 9:06 CDT General Info Languages : Mongolian CHANDLER YOUNGER LPN - 12/14/2012 9:06 CDT Subjective Pain Symptoms : No CHANDLER YOUNGER LPN - 12/14/2012 9:06 CDT Dependent Habits Tobacco Use/Currently Using : No Exposure to Tobacco Smoke : Other: never Smoking Status : Never smoker CHANDLER YOUNGER LPN - 12/14/2012 9:06 CDT Caffeine Use Grid Caffeine Use : None CHANDLER YOUNGER LPN - 12/14/2012 9:06 CDT Recreational Drug Use Grid Drug Use : None CHANDLER YOUNGER LPN - 12/14/2012 9:06 CDT Source: [facility] Document Id: [id number] CDT!27 documented in this encounter Plan of Treatment Not on filedocumented as of this encounter Procedures Procedure Name Priority Date/Time Associated Comments Diagnosis LIPID PANEL, S Routine 12/14/2012 10:05 Results f or this AM CDT procedure are i n the results section. DIPSTICK, U Routine 12/14/2012 10:05 Results for this AM CDT procedure are i n the results section. ASPARTATE Routine 12/14/2012 10:05 Results for this AMINOTRANSFERASE (AST), AM CDT proc edure are in S/P the results section. BASIC METABOLIC PANEL, Routine 12/14/2012 10:05 R esults for this S/P AM CDT procedure are i n the results section. documented in this encounter Results (ABNORMAL) Lipid Panel (12/14/2012 10:05 AM CDT) [facility] Method Time Signature Cholesterol, Total 162 0 - 200 POWERCHART MGDL HX HDL 42.0 40.0 - POWERCHART 60.0 MGDL Triglycerides 204 (H) 0 - 150 POWERCHART MGDL Calculated LDL 79 0 - 100 POWERCHART MGDL Specimen (Source) Anatomical Collection Method Collection Time Re ceived Time Location / / Volume Laterality Blood 12/14/2012 10:05 AM CDT Naz Hdez M.D. LAB BLOOD ADD-ON Performing Organization Address City/[facility]/ZIP Code Phon e Number POWERCHART AST (Aspartate Aminotransferase) (12/14/2012 10:05 AM CDT) [facility] Time Signature Aspartate 28 8 - 43 POWERCHART Aminotransferase UNITL (AST), S Specimen (Source) Anatomical Collection Method Collection Time Re ceived Time Location / / Volume Laterality Blood 12/14/2012 10:05 AM CDT Naz Hdez M.D. LAB BLOOD ADD-ON Performing Organization Address City/State/ZIP Code Phon e Number POWERCHART (ABNORMAL) Dipstick, Urine (12/14/2012 10:05 AM CDT) [facility] Method Time Signature Source Clean Void POWERCHART Urine HXUr Color Yellow POWERCHART Appearance Clear POWERCHART Glucose Negative Negative POWERCHART HXBILIRUBIN Negative Negative POWERCHART Ketones, QL(U) Negative Negative POWERCHART Specific 1.025 (A) 1.020 POWERCHART [place], POCT, U HXBLOOD Small (A) Negative POWERCHART pH, POCT, Urine 6.5 5.0 - 8.0 POWERCHART Protein, Ur, Dip Negative Negative POWERCHART Urobilinogen 0.2 0.2 - 1.0 POWERCHART HXNITRITE Negative Negative POWERCHART Leukocyte Negative Negative POWERCHART Esterase Specimen (Source) Anatomical Collection Method Collection Time Re ceived Time Location / / Volume Laterality Urine 12/14/2012 10:05 AM CDT Naz Hdez M.D. LAB URINE ORDERABLES Performing Organization Address City/State/ZIP Code Phon e Number POWERCHART BMP (Basic Metabolic Panel) (12/14/2012 10:05 AM CDT) P athologist Signature BUN (Blood Urea 10 6 - 20 MGDL POWERCHART Nitrogen), S Creatinine, S 0.8 0.7 - 1.2 POWERCHART MGDL Glucose 96 POWERCHART Potassium, S 4.6 3.5 - 4.8 POWERCHART MMOLL Sodium, S 143 135 - 145 POWERCHART MMOLL Chloride, S 104 100 - 108 POWERCHART MMOLL CO2 Total 29 22 - 29 POWERCHART MMOLL Calcium, Total, 9.4 8.5 - 10.5 POWERCHART S MGDL HXeGFR (MDRD) >60 MLMIN POWERCHART eGFR >60 MLMIN POWERCHART Black/ Specimen (Source) Anatomical Collection Method Collection Time Re ceived Time Location / / Volume Laterality Blood 12/14/2012 10:05 AM CDT Naz Hdez M.D. LAB BLOOD ADD-ON Performing Organization Address City/State/ZIP Code Phon e Number POWERCHART documented in this encounter Visit Diagnoses Not on filedocumented in this encounter Additional Health Concerns Assessment Noted Time PHQ-9 Depression Total Score: 3 11/11/2011 1:33 PM CDT documented as of this encounter
--- OUTSIDE RECORDS SUMMARY | 2021-12-15 01:21 | XMS_ITS | Encounter Summary ---
:1975 Author Organization [facility] Address [address] [place] [address] Care Team Providers Name Role Phone Unavailable Primary Care Provider Unavailable Encounter Details Date Type Department Care Team Description 05/26/2011 Hospital Encounter [facility] Jarad Hdez M.D. [address] [place], [place] [address] (Wo rk) Social History Tobacco Use Types Packs/Day Years Used Date Smoking Tobacco: Never Assessed Sex Assigned at Date Recorded Not on file documented as of this encounter Last Filed Vital Signs Vital Sign Reading Time Taken Comments Blood Pressure 120/72 05/26/2011 4:17 PM JUNIOR NET DEVELOPER Pulse 80 05/26/2011 4:17 PM JUNIOR NET DEVELOPER Temperature - - Respiratory Rate 16 05/26/2011 4:17 PM JUNIOR NET DEVELOPER Oxygen Saturation - - Inhaled Oxygen Concentration - - Weight 100 kg (220 lb 7.4 oz) 05/26/2011 4:17 PM JUNIOR NET DEVELOPER Height - - Body Mass Index - - documented in this encounter Progress Notes Naz Hdez M.D. - 05/26/2011 12:00 AM CST [id number] CHIEF COMPLAINT/REASON FOR VISIT Follow up HISTORY OF PRESENT ILLNESS This 35 year old female presents to clinic to follow up screening Mantoux which was positive at 12 mm yesterday placed on the 16th. 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 Is having no health issues. Had physical exam in recent past. Otherwise is doing quite well. EMR reviewed. Please see the chart. CURRENT MEDICATIONS Post-visit Medication Reconciliation 1. Citalopram 20 mg orally each day 2. Simvastatin 20 mg each day 3. Fexofenadine 180 mg daily as needed. 4. Isoniazid 300 mg daily for the next 9 months. ALLERGIES Environmental but no known drug allergies. PREVENTIVE SERVICES 1. Basal cell carcinoma removed from the right breast and other areas on her body 2004. Last dermatology appointment being 2007. 2. Colposcopy secondary to abnormal Pap smear with no recurrence 1996. Other hospitalizations: vaginal delivery Other injuries: None Other major illnesses: 1. Premenstrual syndrome with anxiety and depression. 2. Hyperlipidemia 3. Overweight 4. History of basal cell carcinoma followed by dermatology. 5. Impaired fasting glucose in 2008 currently stable. 6. Palpitations. VITAL SIGNS DATE/TIME 05/26/2011 WEIGHT 100 kg TEMPERATURE 36.8 degreesC RESP RATE 16/ min PULSE 80 SYSTOLIC 120 DIASTOLIC 72 PHYSICAL EXAM AREA EXAM TEXT GENERAL Neatly dressed well groomed formal evaluation is deferred. LUNGS Chest x-ray negative. IMPRESSION/REPORT/PLAN 1. Latent TB Would recommend treatment with INH 300 mg daily for the next nine months. Will fill out form for [facility] for patient to obtain her medications through the [facility]. Would recommend monthly liver function studies. Would advise that she have the rest of her family screened for TB. Signs and symptoms lead to urgent evaluation are reviewed. She is comfortable with this plan. Spent the entire 20 minute in discussion. [facility] Signed Naz Hdez M.D. Family Medicine Electronically Signed By: NAZ HDEZ MD On: 05/27/2011 05:19 PM Modified by and Electronically Signed by: NAZ HDEZ MD On: 05/27/2011 05:19 PM Source: [facility] [email or web address] Document Id: [id number] OR NET DEVELOPER documented in this encounter Miscellaneous Notes Miscellaneous - Naz Hdez M.D. - 05/26/2011 5:51 PM CST Ambulatory Patient Summary [address] [address] Visit Information Name: JANA DUMONT Current Date: 05/26/2011 17:51:07 Primary Care Provider: NAZ HDZE MD Your Medications Here is a list of your medications. It is important to take your medications as directed. Use a pillbox or chart to help remind you to take your medications. Please let your doctor or nurse know if you have problems taking your medications. Medication/Strength Dose Route Frequency Indications/Special Instructions/Comments isoniazid (isoniazid 300 mg oral tablet) 300 mg Oral once a day citalopram (citalopram 20 mg oral tablet) 20 mg Oral once a day needs follow up loratadine (loratadine 10 mg oral tablet) 10 mg Oral once a day simvastatin (simvastatin 20 mg oral tablet) 20 mg Oral once a day (at bedtime) Your Allergies & Intolerances Substance Reaction Symptoms Category Comments NKA Drug Your Problem List Problem Status Onset Comments Screening for Malignant Neoplasms of the Skin Active 05/16/2007 Personal History of Other Malignant Neoplasm of Skin Active 05/16/2007 Benign Neoplasm of Skin, Site Unspecified Active 05/16/2007 Benign Neoplasm of Skin, Site Unspecified Active 10/10/2008 Keratoderma, 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 Here is a customized list of recommendations, based on information we have in your medical record. Your doctor may have additional recommendations for you, based on your personal medical history and risk factors. You can help us by calling us to make an appointment when you are due for your tests. Additional information regarding recommendations: Test/Treatment Last Done Next Due Additional Information Depression: PHQ-9 every 6 months 04/20/2011 10/20/2011 Health Assessment every 1 year 04/20/2011 04/19/2012 Screening Pap Smear every 3 years Women 21-65 04/20/2011 04/19/2014 Checks for signs of cancer of the cervix. Lipid Panel every 5 years Age 20-75 05/04/2011 05/02/2016 Checks blood for good (HDL) and bad (LDL) cholesterol. Know your numbers, they are one indicator of your risk for heart attack and stroke. Vaccine: Tetanus every 10 years 05/03/2010 04/30/2020 Immunization to help prevent you from getting the serious disease Tetanus (Jerryw). Your Upcoming Appointments Date Time Location Reason Provider No Appointments found Your Goals/Additional instructions: Source: [facility] POWERCHART Document Id: [id number] OR NET DEVELOPER Miscellaneous - Naz Hdez M.D. - 05/26/2011 5:51 PM CST Ambulatory Patient Summary [address] [address] Visit Information Name: JANA DUMONT Current Date: 05/26/2011 17:51:07 Primary Care Provider: NAZ HDEZ MD Your Medications Here is a list of your medications. It is important to take your medications as directed. Use a pillbox or chart to help remind you to take your medications. Please let your doctor or nurse know if you have problems taking your medications. Medication/Strength Dose Route Frequency Indications/Special Instructions/Comments isoniazid (isoniazid 300 mg oral tablet) 300 mg Oral once a day citalopram (citalopram 20 mg oral tablet) 20 mg Oral once a day needs follow up loratadine (loratadine 10 mg oral tablet) 10 mg Oral once a day simvastatin (simvastatin 20 mg oral tablet) 20 mg Oral once a day (at bedtime) Your Allergies & Intolerances Substance Reaction Symptoms Category Comments NKA Drug Your Problem List Problem Status Onset Comments Screening for Malignant Neoplasms of the Skin Active 05/16/2007 Personal History of Other Malignant Neoplasm of Skin Active 05/16/2007 Benign Neoplasm of Skin, Site Unspecified Active 05/16/2007 Benign Neoplasm of Skin, Site Unspecified Active 10/10/2008 Keratoderma, 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 Here is a customized list of recommendations, based on information we have in your medical record. Your doctor may have additional recommendations for you, based on your personal medical history and risk factors. You can help us by calling us to make an appointment when you are due for your tests. Additional information regarding recommendations: Test/Treatment Last Done Next Due Additional Information Depression: PHQ-9 every 6 months 04/20/2011 10/20/2011 Health Assessment every 1 year 04/20/2011 04/19/2012 Screening Pap Smear every 3 years Women 21-65 04/20/2011 04/19/2014 Checks for signs of cancer of the cervix. Lipid Panel every 5 years Age 20-75 05/04/2011 05/02/2016 Checks blood for good (HDL) and bad (LDL) cholesterol. Know your numbers, they are one indicator of your risk for heart attack and stroke. Vaccine: Tetanus every 10 years 05/03/2010 04/30/2020 Immunization to help prevent you from getting the serious disease Tetanus (Lockjaw). Your Upcoming Appointments Date Time Location Reason Provider No Appointments found Your Goals/Additional instructions: Source: [facility] POWERCHART Document Id: [id number] OR NET DEVELOPER Miscellaneous - Naz Hdez M.D. - 05/26/2011 5:51 PM CST Ambulatory Depart Summary [address] [address] Visit Information Name: JANA DUMONT Current Date: 05/26/2011 17:51:06 Attending Provider: NAZ HDEZ MD Primary Care [...] your medications. Medication/Strength Dose Route Frequency Indications/Special Instructions/Comments isoniazid (isoniazid 300 mg oral tablet) 300 mg Oral once a day citalopram (citalopram 20 mg oral tablet) 20 mg Oral once a day needs follow up loratadine (loratadine 10 mg oral tablet) 10 mg Oral once a day simvastatin (simvastatin 20 mg oral tablet) 20 mg Oral once a day (at bedtime) Additional Information: Source: [facility] POWERCHART Document Id: [id number] N Christianson - Naz Hdez M.D. - 05/26/2011 5:51 PM CST Ambulatory Depart Summary [address] [address] Visit Information Name: JANA DUMONT Current Date: 05/26/2011 17:51:06 Attending Provider: NAZ HDEZ MD Primary Care [...] your medications. Medication/Strength Dose Route Frequency Indications/Special Instructions/Comments isoniazid (isoniazid 300 mg oral tablet) 300 mg Oral once a day citalopram (citalopram 20 mg oral tablet) 20 mg Oral once a day needs follow up loratadine (loratadine 10 mg oral tablet) 10 mg Oral once a day simvastatin (simvastatin 20 mg oral tablet) 20 mg Oral once a day (at bedtime) Additional Information: Source: [facility] POWERCHART Document Id: [id number] OR NET DEVELOPER Sammy - Velia Younger L.P.N. - 05/26/2011 4:17 PM CST Adult Wind Power Project Manager Intake/History Adult Wind Power Project Manager Intake/History Entered On: 05/26/2011 16:19 JUNIOR NET DEVELOPER Performed On: 05/26/2011 16:17 JUNIOR NET DEVELOPER by VELIA YOUNGER LPN Intake Chief Complaint : positive mantoux Temperature Core : 36.8C(Converted to: 98.2DegF) Peripheral Pulse Rate : 80/min Respiratory Rate : 16/min Systolic Blood Pressure : 120mmHg Diastolic Blood Pressure : 72mmHg NIBP Mean : 88mmHg BP Location : Left upper extremity Blood Pressure Cuff Size : Regular Actual Weight : 100kg(Converted to: 220lb 7oz) Dosing Weight Clinic : 100.00kg VELIA YOUNGER LPN - 05/26/2011 16:17 JUNIOR NET DEVELOPER Subjective Pain Symptoms : No VELIA YOUNGER LPN - 05/26/2011 16:17 JUNIOR NET DEVELOPER Dependent Habits Tobacco Use/Currently Using : No Smoking Status : Never smoker VELIA YOUNGER LPN - 05/26/2011 16:17 JUNIOR NET DEVELOPER Allergy Allergies (Active) NKA Estimated Onset Date: Unspecified ; Created By: NAZ HDEZ MD; Reaction Status: Active ; Category: Drug ; Substance: NKA ; Type: Allergy ; Updated By: NAZ HDEZ MD; Reviewed Date: 05/26/2011 15:28 JUNIOR NET DEVELOPER [facility] Document Id: [id number] JUNIOR NET DEVELOPER!18 OR NET DEVELOPER Miscellaneous - Velia Younger L.P.N. - 05/26/2011 4:17 PM CST Adult Wind Power Project Manager Intake/History Adult Wind Power Project Manager Intake/History Entered On: 05/26/2011 16:19 JUNIOR NET DEVELOPER Performed On: 05/26/2011 16:17 JUNIOR NET DEVELOPER by VELIA YOUNGER LPN Intake Chief Complaint : positive mantoux Temperature Core : 36.8C(Converted to: 98.2DegF) Peripheral Pulse Rate : 80/min Respiratory Rate : 16/min Systolic Blood Pressure : 120mmHg Diastolic Blood Pressure : 72mmHg NIBP Mean : 88mmHg BP Location : Left upper extremity Blood Pressure Cuff Size : Regular Actual Weight : 100kg(Converted to: 220lb 7oz) Dosing Weight Clinic : 100.00kg VELIA YOUNGERMaryse ANTONIO - 05/26/2011 16:17 JUNIOR NET DEVELOPER Subjective Pain Symptoms : No VELIA YOUNGER PACO - 05/26/2011 16:17 JUNIOR NET DEVELOPER Dependent Habits Tobacco Use/Currently Using : No Smoking Status : Never smoker VELIA YOUNGER PACO - 05/26/2011 16:17 JUNIOR NET DEVELOPER Allergy Allergies (Active) NKA Estimated Onset Date: Unspecified ; Created By: NAZ HDEZ MD; Reaction Status: Active ; Category: Drug ; Substance: NKA ; Type: Allergy ; Updated By: NAZ HDEZ MD; Reviewed Date: 05/26/2011 15:28 JUNIOR NET DEVELOPER Source: [facility] PeopleGoal Document Id: [id number] JUNIOR NET DEVELOPER!18 OR NET DEVELOPER documented in this encounter Plan of Treatment Not on filedocumented as of this encounter Procedures Procedure Name Priority Date/Time Associated Diagnosis Comme nts DX CHEST AP OR PA Routine 05/26/2011 3:47 PM Resu lts for this AND LATERAL 2 VIEWS JUNIOR NET DEVELOPER procedur e are in the results section. documented in this encounter Results DX Chest AP or PA and Lateral 2 Views (05/26/2011 3:47 PM JUNIOR NET DEVELOPER) Anatomical Region Laterality Modality Chest N/A Radiographic Imaging Specimen (Source) Anatomical Collection Method Collection Time Re ceived Time Location / / Volume Laterality 05/26/2011 3:47 PM JUNIOR NET DEVELOPER Narrative 05/26/2011 4:04 PM JUNIOR NET DEVELOPER FINDINGS: The heart is normal in size an d the lungs are clear. ?? CONCLUSION: ??Normal chest. Procedure Note Alex Rg M.D. / Provider, Dipti paz M.D. - 10/27/2016 FINDINGS: The heart is normal in size an d the lungs are clear. CONCLUSION: Normal chest. Alexi Collins(Ileana)(M) IMG DIAGNOSTIC IMAGING PROCE DURES documented in this encounter Visit Diagnoses Not on filedocumented in this encounter Additional Health Concerns Assessment Noted Time PHQ-9 Depression Total Score: 3 04/20/2011 5:53 PM JUNIOR NET DEVELOPER documented as of this encounter
--- OUTSIDE RECORDS SUMMARY | 2021-12-15 01:21 | XMS_ITS | Encounter Summary ---
:1975 Author Organization [facility] Address [address] [place] [address] Care Team Providers Name Role Phone Unavailable Primary Care Provider Unavailable Encounter Details Date Type Department Care Team Description 05/04/2011 Hospital Encounter HX [facility] LAB Jarad Hdez M.D. [address] [place], [place] [address] (Wo rk) Social History Tobacco Use Types Packs/Day Years Used Date Smoking Tobacco: Never Assessed Sex Assigned at Date Recorded Not on file documented as of this encounter Nursing Notes Chandler Younger LPeymanP.N. - 05/12/2011 11:02 AM CST Labs 05-04-11 Result card sent. Electronically Signed By: CHANDLER YOUNGER LPN On: 05/12/2011 11:02 AM Source: [facility] [employer] Document Id: [id number] ODITIES BROKER Chandler Younger L.P.N. - 05/12/2011 11:02 AM CST Labs 05-04-11 Result card sent. Electronically Signed By: CHANDLER YOUNGER LPN On: 05/12/2011 11:02 AM Source: [facility] LiveVoxCHART Document Id: [id number] ODITIES BROKER documented in this encounter Plan of Treatment Not on filedocumented as of this encounter Visit Diagnoses Not on filedocumented in this encounter Additional Health Concerns Assessment Noted Time PHQ-9 Depression Total Score: 3 04/20/2011 5:53 PM COMMODITIES BROKER documented as of this encounter
--- OUTSIDE RECORDS SUMMARY | 2021-12-15 01:21 | XMS_ITS | Encounter Summary ---
:1975 Author Organization [facility] Address [address] [place] [address] Care Team Providers Name Role Phone Unavailable Primary Care Provider Unavailable Encounter Details Date Type Department Care Team Description 05/15/2007 Hospital Encounter [facility]X [facility] DER[facility] Teresa Ashby M.D. [address] [facility], [place] [address] (Wo rk) Social History Tobacco Use Types Packs/Day Years Used Date Smoking Tobacco: Never Assessed Sex Assigned at Date Recorded Not on file documented as of this encounter Plan of Treatment Not on filedocumented as of this encounter Visit Diagnoses Not on filedocumented in this encounter
--- OUTSIDE RECORDS SUMMARY | 2021-12-15 01:21 | XMS_ITS | Encounter Summary ---
:1975 Author Organization [facility] Address [address] [place] [address] Care Team Providers Name Role Phone Unavailable Primary Care Provider Unavailable Encounter Details Date Type Department Care Team Description 03/16/2005 Hospital Encounter HX [facility] Teresa Alan M.D. [address] [facility], [place] [address] (Wo rk) Social History Tobacco Use Types Packs/Day Years Used Date Smoking Tobacco: Never Assessed Sex Assigned at Date Recorded Not on file documented as of this encounter Plan of Treatment Not on filedocumented as of this encounter Visit Diagnoses Not on filedocumented in this encounter
--- OUTSIDE RECORDS SUMMARY | 2021-12-15 01:21 | XMS_ITS | Encounter Summary ---
:1975 Author Organization [facility] Address [address] [place] [address] Care Team Providers Name Role Phone Unavailable Primary Care Provider Unavailable Encounter Details Date Type Department Care Team Description 05/23/2011 Hospital Encounter [facility]X [facility] NURSE Jarad Nettles M.D. [address] [place], [place] [address] (Wo rk) Social History Tobacco Use Types Packs/Day Years Used Date Smoking Tobacco: Never Assessed Sex Assigned at Date Recorded Not on file documented as of this encounter Nursing Notes Conversion, Historical Provider Ser - 05/23/2011 10:52 AM CST PPD Placement Pt. had PPD placed at 10 a.m. this a.m. She will return on 05-25-2011 at 3:[address] for [facility]. Electronically Signed By: YURIDIA LOPEZ On: 05/23/2011 10:53 AM Source: [employer] Document Id: [id number] Conversion, Historical Provider Ser - 05/23/2011 10:52 AM CST PPD Placement Pt. had PPD placed at 10 a.m. this a.m. She will return on 05-25-2011 at 3:[address] for [employer]. Electronically Signed By: YURIDIA LOPEZ On: 05/23/2011 10:53 AM Source: [employer] Document Id: [id number] A PRODUCTION OPERATOR documented in this encounter Plan of Treatment Not on filedocumented as of this encounter Visit Diagnoses Not on filedocumented in this encounter Additional Health Concerns Assessment Noted Time PHQ-9 Depression Total Score: 3 04/20/2011 5:53 PM MEDIA PRODUCTION OPERATOR documented as of this encounter
--- OUTSIDE RECORDS SUMMARY | 2021-12-15 01:21 | XMS_ITS | Encounter Summary ---
:1975 Author Organization [facility] Address [address] [place] [address] Care Team Providers Name Role Phone Unavailable Primary Care Provider Unavailable Encounter Details Date Type Department Care Team Description 08/04/2011 Hospital Encounter HX [facility] FB[facility] LAB Jarad Hdez M.D. [address] [place], [place] [address] (Wo rk) Social History Tobacco Use Types Packs/Day Years Used Date Smoking Tobacco: Never Assessed Sex Assigned at Date Recorded Not on file documented as of this encounter Nursing Notes Chandler Youngre LPeymanP.N. - 08/09/2011 11:57 AM CDT Labs 08-04-11 Result card sent. Electronically Signed By: CHANDLER YOUNGER LPN On: 08/09/2011 11:58 AM Source: [facility] CoubicCHART Document Id: [id number] Chandler Younger L.P.N. - 08/09/2011 11:57 AM CDT Labs 08-04-11 Result card sent. Electronically Signed By: CHANDLER YOUNGER LPN On: 08/09/2011 11:58 AM Source: [facility] CoubicCHART Document Id: [id number] documented in this encounter Plan of Treatment Not on filedocumented as of this encounter Procedures Procedure Name Priority Date/Time Associated Comments Diagnosis ASPARTATE Routine 08/04/2011 3:29 Results for this AMINOTRANSFERASE (AST), PM CDT proc edure are in S/P the results section. documented in this encounter Results AST (Aspartate Aminotransferase) (08/04/2011 3:29 PM CDT) [facility] gist Method Time Signature Aspartate 22 8 - 43 POWERCHART Aminotransferase UNITL (AST), S Specimen (Source) Anatomical Collection Method Collection Time Re ceived Time Location / / Volume Laterality Blood 08/04/2011 3:29 PM CDT Naz Hdez M.D. LAB BLOOD ADD-ON Performing Organization Address City/State/ZIP Code Phon e Number POWERCHART documented in this encounter Visit Diagnoses Not on filedocumented in this encounter Additional Health Concerns Assessment Noted Time PHQ-9 Depression Total Score: 3 04/20/2011 5:53 PM PIPING ENGINEER documented as of this encounter
--- OUTSIDE RECORDS SUMMARY | 2021-12-15 01:21 | XMS_ITS | Encounter Summary ---
:1975 Author Organization [facility] Address [address] [place] [address] Care Team Providers Name Role Phone Unavailable Primary Care Provider Unavailable Encounter Details Date Type Department Care Team Description 02/23/2010 Hospital Encounter [facility]X [facility] Jarad Hdez M.D. [address] [place], [place] [address] (Wo rk) Social History Tobacco Use Types Packs/Day Years Used Date Smoking Tobacco: Never Assessed Sex Assigned at Date Recorded Not on file documented as of this encounter Progress Notes Naz Hdez M.D. - 02/23/2010 12:00 AM CDT [id number] IMPRESSION/REPORT/PLAN Depression with anxiety stabilizing. Hyperlipidemia. PLAN Discussed various options including NuvaRing IUD, ablation therapy combined with Essure, versus continuing on her OCPs with the possibility of adding another cholesterol medication such as Niacin. Patient will resume her former regimen and will recheck her lipids in about three months and consider reassessment if her profile has not significantly improved. Signs and symptoms to lead to a more urgent evaluation are reviewed. Refills are given. Spent the entire 20 minute visit in discussion of her various health issues. CHIEF COMPLAINT/REASON FOR VISIT Follow up HISTORY OF PRESENT ILLNESS This 34 year-old female presents to the clinic to follow up her multiple health issues. She is quite pleased with her Celexa. She is taking it in the morning. She had started taking it in the evening but she had some disruption of her sleep. Is feeling nearly at her baseline. Her triglycerides were elevated. She was on OCPs secondary to mood swings. She is not really planning any additional babies at this time and has thought about definitive treatment. She is not following her low cholesterol, high fiber diet as closely as she could, she stopped taking her fiber supplements and is not exercising quite as much as she feels she would be able to pursue. She is not interested in medications unless absolutely essential. CURRENT MEDICATIONS Post-visit Medication Reconciliation 1. Simvastatin 20 mg PO each day 2. Fish oil each day 3. Metamucil episodic use 4. Chen 180 mg daily but not for some time 5. History of Zoloft self discontinued year or so ago 6. Citalopram 20 mg orally each day 7. Ocella OCPs orally each day. PAST MEDICAL/SURGICAL HISTORY PREVENTIVE SERVICES Tobacco: None. Mammogram: Nonapplicable secondary to stated age. Pap smear: 01-28-2010 Chlamydia: Nonapplicable secondary to stated age. Colon screening: Nonapplicable secondary to stated age. Depression: Yes but PHQ-9 score 15 at the present time. Asthma: No. Lipids: 01-28-2010 Tetanus: 01-19-2000 Pneumovax: Nonapplicable secondary to stated age. Influenza vaccine: Nonapplicable secondary to time of year. VITAL SIGNS DATE/TIME 02-23-2010 WEIGHT 88.4 kg TEMPERATURE 36.8 degreesC RESP RATE 12 / min PULSE 76 SYSTOLIC 116 DIASTOLIC 70 PHYSICAL EXAM AREA EXAM TEXT GENERAL Neatly dressed, well groomed. MENTAL Speech is of normal rate and volume, articulate, coherent, spontaneous with no notation of abnormalities. Thought processes reveal intact abstract reasoning and computation. No loose tangential circumstantial thoughts. No hallucinations. No delusions. No preoccupation with violence. No homicidal or suicidal ideations. No ruminations. Excellent insight into situation and illness process. Oriented to person, place and time. Recent and remote memory are intact. Attention span and concentration are at baseline. Language and fund of knowledge suggest average intellect. Mood and affect reflect no evidence of depression, anxiety, agitation, hypomania or emotional lability. NELIDA/david Signed Naz Hdez M.D. Family Medicine Electronically Signed By:NAZ HDEZ MD On 02/24/2010 03:02 PM Source: [facility] MHSDOLBEYNONRADSYS Document Id: [id number] documented in this encounter Miscellaneous Notes Miscellaneous - Naz Hdez M.D. - 02/25/2010 12:30 PM CDT PHQ-9 PHQ-9 Entered On: 02/25/2010 12:30 CDT Performed On: 02/25/2010 12:30 CDT by NAZ HDEZ MD PHQ-9 Little interest or pleasure in doing things: Not at all Feeling down, depressed, or hopeless: Not at all Trouble falling or staying asleep, or sleeping too much: Not at all Feeling tired or having little energy: Not at all Poor appetite or overeating: Nearly every day Feeling bad about yourself or that you are a failure: Not at all Trouble concentrating on things: Not at all Moving or speaking slowly; restless or fidgety: Not at all Thoughts that you would be better off /hurting self: Not at all PHQ-9 Calculated Score: 3 PHQ-9 Date Completed: 02/25/2010 CDT Problems make work, home, or dealing with others: Not difficult at all NAZ HDEZ MD - 02/25/2010 12:30 CDT Source: [employer] Document Id: [id number] CDT!14 Miscellaneous - Naz Hdez M.D. - 02/25/2010 12:30 PM CDT PHQ-9 PHQ-9 Entered On: 02/25/2010 12:30 CDT Performed On: 02/25/2010 12:30 CDT by NAZ HDEZ MD PHQ-Sloane Little interest or pleasure in doing things: Not at all Feeling down, depressed, or hopeless: Not at all Trouble falling or staying asleep, or sleeping too much: Not at all Feeling tired or having little energy: Not at all Poor appetite or overeating: Nearly every day Feeling bad about yourself or that you are a failure: Not at all Trouble concentrating on things: Not at all Moving or speaking slowly; restless or fidgety: Not at all Thoughts that you would be better off /hurting self: Not at all PHQ-9 Calculated Score: 3 PHQ-9 Date Completed: 02/25/2010 CDT Problems make work, home, or dealing with others: Not difficult at all NAZ HDEZ MD - 02/25/2010 12:30 CDT Source: [employer] Document Id: [id number] CDT!14 Miscellaneous - Naz Hdez M.D. - 02/25/2010 12:18 PM CDT PHQ-9 PHQ-9 Entered On: 02/25/2010 12:18 CDT Performed On: 02/25/2010 12:18 CDT by NAZ HDEZ MD PHQ-9 Little interest or pleasure in doing things: Not at all Feeling down, depressed, or hopeless: Not at all Trouble falling or staying asleep, or sleeping too much: Not at all Feeling tired or having little energy: Not at all Poor appetite or overeating: Nearly every day Feeling bad about yourself or that you are a failure: Not at all Trouble concentrating on things: Not at all Moving or speaking slowly; restless or fidgety: Not at all Thoughts that you would be better off /hurting self: Not at all PHQ-9 Calculated Score: 3 PHQ-9 Date Completed: 02/25/2010 CDT Problems make work, home, or dealing with others: Not difficult at all NAZ HDEZ MD - 02/25/2010 12:18 CDT Source: [employer] Document Id: [id number] CDT!14 Miscellaneous - Naz Hdez M.D. - 02/25/2010 12:18 PM CDT PHQ-9 PHQ-9 Entered On: 02/25/2010 12:18 CDT Performed On: 02/25/2010 12:18 CDT by NAZ HDEZ MD PHQ-9 Little interest or pleasure in doing things: Not at all Feeling down, depressed, or hopeless: Not at all Trouble falling or staying asleep, or sleeping too much: Not at all Feeling tired or having little energy: Not at all Poor appetite or overeating: Nearly every day Feeling bad about yourself or that you are a failure: Not at all Trouble concentrating on things: Not at all Moving or speaking slowly; restless or fidgety: Not at all Thoughts that you would be better off /hurting self: Not at all PHQ-9 Calculated Score: 3 PHQ-9 Date Completed: 02/25/2010 CDT Problems make work, home, or dealing with others: Not difficult at all NAZ HDEZ MD - 02/25/2010 12:18 CDT Source: [employer] Document Id: [id number] CDT!14 Miscellaneous - Chandler Younger L.P.N. - 02/23/2010 9:04 AM CDT Adult Printer Assistant Intake/History Adult Printer Assistant Intake/History Entered On: 02/23/2010 9:07 CDT Performed On: 02/23/2010 9:04 CDT by CHANDLER YOUNGER LPN Intake Chief Complaint: recheck Temperature Core: 36.8C(Converted to: 98.2DegF) Peripheral Pulse Rate: 76/min Respiratory Rate: 12/min (LOW) Systolic Blood Pressure: 116mmHg Diastolic Blood Pressure: 70mmHg NIBP Mean: 85mmHg BP Location: Left upper extremity Actual Weight: 88.400kg(Converted to: 194lb 14oz) Dosing Weight Clinic: 88.40kg CHANDLER YOUNGER LPN - 02/23/2010 9:04 CDT Subjective Pain Symptoms: No CHANDLER YOUNGER LPN - 02/23/2010 9:04 CDT Dependent Habits Tobacco Use/Currently Using: No CHANDLER YOUNGER LPN - 02/23/2010 9:04 CDT Allergies Allergies (Active) NKA Estimated Onset Date: Unspecified ; Created By: NAZ HDZE MD; Reaction Status: Active ; Category: Drug ; Substance: NKA ; Type: Allergy ; Updated By: NAZ HDEZ MD; Reviewed Date: 02/23/2010 9:04 CDT Source: [facility] [employer] Document Id: [id number] CDT!16 Miscellaneous - Chandler Younger LPeymanP.NPeyman - 02/23/2010 9:04 AM CDT Adult Printer Assistant Intake/History Adult Printer Assistant Intake/History Entered On: 02/23/2010 9:07 CDT Performed On: 02/23/2010 9:04 CDT by CHANDLER YOUNGER LPN Intake Chief Complaint: recheck Temperature Core: 36.8C(Converted to: 98.2DegF) Peripheral Pulse Rate: 76/min Respiratory Rate: 12/min (LOW) Systolic Blood Pressure: 116mmHg Diastolic Blood Pressure: 70mmHg NIBP Mean: 85mmHg BP Location: Left upper extremity Actual Weight: 88.400kg(Converted to: 194lb 14oz) Dosing Weight Clinic: 88.40kg CHANDLER YOUNGER LPN - 02/23/2010 9:04 CDT Subjective Pain Symptoms: No CHANDLER YOUNGER LPN - 02/23/2010 9:04 CDT Dependent Habits Tobacco Use/Currently Using: No CHANDLER YOUNGER LPN - 02/23/2010 9:04 CDT Allergies Allergies (Active) NKA Estimated Onset Date: Unspecified ; Created By: NAZ HDEZ MD; Reaction Status: Active ; Category: Drug ; Substance: NKA ; Type: Allergy ; Updated By: NAZ HDEZ MD; Reviewed Date: 02/23/2010 9:04 CDT Source: [facility] POWERCHART Document Id: [id number] CDT!16 documented in this encounter Plan of Treatment Not on filedocumented as of this encounter Visit Diagnoses Not on filedocumented in this encounter Additional Health Concerns Assessment Noted Time PHQ-9 Depression Total Score: 3 02/25/2010 12:30 PM CD T documented as of this encounter
--- OUTSIDE RECORDS SUMMARY | 2021-12-15 01:21 | XMS_ITS | Encounter Summary ---
:1975 Author Organization [facility] Address [address] [place] [address] Care Team Providers Name Role Phone Unavailable Primary Care Provider Unavailable Encounter Details Date Type Department Care Team Description 06/28/2012 Hospital Encounter HX [facility]ILY[facility] Aishwarya Stevenson APRN, C.N.P. [address] [place] [address] (Wo rk) Social History Tobacco Use Types Packs/Day Years Used Date Smoking Tobacco: Never Assessed Sex Assigned at Date Recorded Not on file documented as of this encounter Last Filed Vital Signs Vital Sign Reading Time Taken Comments Blood Pressure 122/80 06/28/2012 9:39 AM ZOOGLER Pulse 68 06/28/2012 9:39 AM ZOOGLER Temperature - - Respiratory Rate 16 06/28/2012 9:39 AM ZOOGLER Oxygen Saturation - - Inhaled Oxygen Concentration - - Weight 97 kg (213 lb 13.5 oz) 06/28/2012 9:39 AM ZOOGLER Height 162 cm (5' 3.78) 06/28/2012 9:39 AM ZOOGLER Body Mass Index 36.96 06/28/2012 9:39 AM ZOOGLER documented in this encounter Progress Notes Phillip Stevenson APRN, C.N.P. - 06/28/2012 9:32 AM CST [id number] CHIEF COMPLAINT/REASON FOR VISIT Sore throat and fever. HISTORY OF PRESENT ILLNESS Alondra states she has had sore throat with upper respiratory congestion for the past week and half ithas gotten worse over the last few days. She states she continues to spike temperature in the afternoon. CURRENT MEDICATIONS See depart summary from today. ALLERGIES None. SYSTEMS REVIEW Positive for that mentioned in history of present illness and noted in the past medical history in the EMR all other systems were reviewed and were negative PREVENTIVE up to date. VITAL SIGNS See EMR PHYSICAL EXAMINATION GENERAL: Well developed well nourished female in no acute distress. SKIN: Warm and dry. ENT: TMs are dull. Nares congested. Throat erythematous. Throat erythematous tonsils with exudate. Mild anterior cervical lymphadenopathy. HEART: Regular rate and rhythm LUNGS: Clear to auscultation. ABDOMEN: Soft, nontender, no hepatosplenomegaly. IMPRESSION/REPORT/PLAN Acute tonsillitis with non strep pharyngitis. Augmentin 875 mg 1 2 times a day for 10 days. Encourage fluids, Tylenol for fever discomfort and recheck if symptoms do not improve Phillip Stevenson CNP/simon DOCID: [id number] Electronically Signed By: PHILLIP STEVENSON CNP On: 07/02/2012 09:10 AM Source: [facility] MHSDOLBEYNONRADSYS Document Id: [id number] LER documented in this encounter Miscellaneous Notes Miscellaneous - Phillip Stevenson APRN, C.N.P. - 06/28/2012 10:02 AM ZOOGLER Ambulatory Depart Summary [address] [address] Visit Information Name: JANA DUMONT EMERSON [facility] Number: [id number] Visit Date: 06/28/2012 10:02:57 Attending Provider: PHILLIP STEVENSON CNP Primary Care [...] medications. Medication/Strength Dose Route Frequency Indications/Special Instructions/Comments amoxicillin-clavulanate (Augmentin 875 mg-125 mg oral tablet) 1 tab(s) Oral two times a day for 10 Days simvastatin (simvastatin 20 mg oral tablet) 20 mg Oral once a day (at bedtime) Attention: If you have any medications at home that are not on this list, DO NOT take them until youcontact your provider for clarification. Additional Information: Source: [facility] POWERCHART Document Id: [id number] LER Miscellaneous - Phillip Stevenson APRN, C.N.P. - 06/28/2012 10:02 AM ZOOGLER Ambulatory Patient Summary [address] [address] Visit Information Name: JANA DUMONT [facility] Number: [id number] Current Date: 06/28/2012 10:02:57 Physicians Attending Provider: PHILLIP STEVENSON [facility] Primary Care Provider: TERRI GIL MD Your Medications Here is a list of your medications. It is important to take your medications as directed. Use a pillbox or chart to help remind you to take your medications. Please let your doctor or nurse know if you have problems taking your medications. Medication/Strength Dose Route Frequency Indications/Special Instructions/Comments amoxicillin-clavulanate (Augmentin 875 mg-125 mg oral tablet) 1 tab(s) Oral two times a day for 10 Days simvastatin (simvastatin 20 mg oral tablet) 20 mg Oral once a day (at bedtime) Attention: If you have any medications at [...] No Appointments found Your Goals/Additional instructions: Source: [facility] POWERCHART Document Id: [id number] LER Miscellaneous - Phillip Stevenson APRN, C.N.P. - 06/28/2012 10:02 AM ZOOGLER Ambulatory Depart Summary [address] [address] Visit Information Name: JANA DUMONT EMERSON [facility] Number: [id number] Visit Date: 06/28/2012 10:02:57 Attending Provider: PHILLIP STEVENSON [facility] Primary Care Provider: TERRI GIL MD JANA DUMONTTH has been given the following list of medications: Your Medications It is important to take your medications as directed. Use a pill box or chart to help remind you to take your medications. Please let your doctor or nurse know if you have problems taking your medications. Medication/Strength Dose Route Frequency Indications/Special Instructions/Comments amoxicillin-clavulanate (Augmentin 875 mg-125 mg oral tablet) 1 tab(s) Oral two times a day for 10 Days simvastatin (simvastatin 20 mg oral tablet) 20 mg Oral once a day (at bedtime) Attention: If you have any medications at home that are not on this list, DO NOT take them until youcontact your provider for clarification. Additional Information: Source: [facility] [employer]JotCHART Document Id: [id number] LER Miscellaneous - Phillip Stevenson APRN, C.N.P. - 06/28/2012 10:02 AM ZOOGLER Ambulatory Patient Summary [address] [facility] [place] [address] Visit Information Name: JANA DUMONT [facility] Number: [id number] Current Date: 06/28/2012 10:02:57 Physicians Attending Provider: PHILLIP STEVENSON CNP Primary Care Provider: TERRI GIL MD Your Medications Here is a list of your medications. It is important to take your medications as directed. Use a pillbox or chart to help remind you to take your medications. Please let your doctor or nurse know if you have problems taking your medications. Medication/Strength Dose Route Frequency Indications/Special Instructions/Comments amoxicillin-clavulanate (Augmentin 875 mg-125 mg oral tablet) 1 tab(s) Oral two times a day for 10 Days simvastatin (simvastatin 20 mg oral tablet) 20 mg Oral once a day (at bedtime) Attention: If you have any medications at [...] No Appointments found Your Goals/Additional instructions: Source: [facility] POWERCHART Document Id: [id number] LER Miscellaneous - Christen Connelly L.P.N. - 06/28/2012 9:41 AM CST Health Assessment Health Assessment Entered On: 06/28/2012 9:42 ZOOGLER Performed On: 06/28/2012 9:41 ZOOGLER by CHRISTEN CONNELLY Health Assessment Complete Health Assessment Complete or Modified : Annual Health Assessment Annual Health Assessment Completed : Yes GODWIN CHRISTEN CRUZ - 06/28/2012 9:41 ZOOGLER Nutrition Nutrition Risk Factors by History Adult : None SKY CONNELLYFamilia CRUZ - 06/28/2012 9:41 ZOOGLER Functional Current Daily Living Assistance : None GODWIN CHRISTEN CRUZ - 06/28/2012 9:41 ZOOGLER Dependent Habits Tobacco Use/Currently Using : No Exposure to Tobacco Smoke : Other: never Smoking Status : Never smoker GODWIN CHRISTEN CRUZ - 06/28/2012 9:41 ZOOGLER Caffeine Use Grid Caffeine Use : None CHRISTEN CONNELLY - 06/28/2012 9:41 ZOOGLER Recreational Drug Use Grid Drug Use : None CHRISTEN CONNELLY - 06/28/2012 9:41 ZOOGLER Psychosocial Domestic Abuse Concerns : None CHRISTEN CONNELLY - 06/28/2012 9:41 ZOOGLER Advance Directive Advanced Directives : No CHRISTEN CONNELLY - 06/28/2012 9:41 ZOOGLER Educ Needs Learning Style Preference Adult Grid Patient : Verbal explanation Family : Verbal explanation CHRISTEN CONNELLY - 06/28/2012 9:41 [address] [facility] POWER[facility] Document Id: [id number] LER Miscellaneous - Christen Connelly L.PPeymanNPeyman - 06/28/2012 9:41 AM CST Health Assessment Health Assessment Entered On: 06/28/2012 9:42 ZOOGLER Performed On: 06/28/2012 9:41 ZOOGLER by CHRISTEN CONNELLY Health Assessment Complete Health Assessment Complete or Modified : Annual Health Assessment Annual Health Assessment Completed : Yes CHRISTEN CONNELLY - 06/28/2012 9:41 ZOOGLER Nutrition Nutrition Risk Factors by History Adult : None GODWIN CHRISTEN CRUZ - 06/28/2012 9:41 ZOOGLER Functional Current Daily Living Assistance : None CHRISTEN CONNELLY - 06/28/2012 9:41 ZOOGLER Dependent Habits Tobacco Use/Currently Using : No Exposure to Tobacco Smoke : Other: never Smoking Status : Never smoker CHRISTEN CONNELLYN - 06/28/2012 9:41 ZOOGLER Caffeine Use Grid Caffeine Use : None CHRISTEN CONNELLYN - 06/28/2012 9:41 ZOOGLER Recreational Drug Use Grid Drug Use : None CHRISTEN CONNELLYN - 06/28/2012 9:41 ZOOGLER Psychosocial Domestic Abuse Concerns : None CHRISTEN CONNELLYN - 06/28/2012 9:41 ZOOGLER Advance Directive Advanced Directives : No CHRISTEN CONNELLYN - 06/28/2012 9:41 ZOOGLER Educ Needs Learning Style Preference Adult Grid Patient : Verbal explanation Family : Verbal explanation CHRISTEN CONNELLYN - 06/28/2012 9:41 [address] [facility] Document Id: [id number] LER Miscellaneous - Christen Connelly L.PPeymanNPeyman - 06/28/2012 9:39 AM CST Adult Business Intern Intake/History Adult Business Intern Intake/History Entered On: 06/28/2012 9:41 ZOOGLER Performed On: 06/28/2012 9:39 ZOOGLER by CHRISTEN CONNELLY Intake Chief Complaint : sore throat and low grade fever for 1 week Temperature Core : 37.1C(Converted to: 98.8DegF) Peripheral Pulse Rate : 68/min Respiratory Rate : 16/min Systolic Blood Pressure : 122mmHg Diastolic Blood Pressure : 80mmHg NIBP Mean : 94mmHg Height : 162cm(Converted to: 5ft 4inch(es), 63.78inch(es)) Actual Weight : 97.0kg(Converted to: 213lb 14oz) Dosing Weight Clinic : 97.00kg Clinic BSA : 2.09 Body Mass Index : 36.96kg/m2 GODWIN CHRISTEN CRUZ - 06/28/2012 9:39 ZOOGLER General Info Information Given By : Patient Languages : [place] CHRISTEN CONNELLYN - 06/28/2012 9:39 ZOOGLER Subjective Pain Symptoms : No GODWIN CHRISTEN NANCY - 06/28/2012 9:39 ZOOGLER Dependent Habits Tobacco Use/Currently Using : No Exposure to Tobacco Smoke : Other: never Smoking Status : Never smoker CHRISTEN CONNELLY - 06/28/2012 9:39 ZOOGLER Allergy Allergies (Active) NKA Estimated Onset Date: Unspecified ; Created By: TERRI GIL MD; Reaction Status: Active ; Category: Drug ; Substance: NKA ; Type: Allergy ; Updated By: TERRI GIL MD; Reviewed Date: 11/11/2011 9:08 CDT Source: [facility] [employer]CHART Document Id: [id number] LER Miscellaneous - Christen Connelly LPeymanP.NPeyman - 06/28/2012 9:39 AM CST Adult Business Intern Intake/History Adult Business Intern Intake/History Entered On: 06/28/2012 9:41 ZOOGLER Performed On: 06/28/2012 9:39 ZOOGLER by CHRISTEN CONNELLY Intake Chief Complaint : sore throat and low grade fever for 1 week Temperature Core : 37.1C(Converted to: 98.8DegF) Peripheral Pulse Rate : 68/min Respiratory Rate : 16/min Systolic Blood Pressure : 122mmHg Diastolic Blood Pressure : 80mmHg NIBP Mean : 94mmHg Height : 162cm(Converted to: 5ft 4inch(es), 63.78inch(es)) Actual Weight : 97.0kg(Converted to: 213lb 14oz) Dosing Weight Clinic : 97.00kg Clinic BSA : 2.09 Body Mass Index : 36.96kg/m2 CHRISTEN CONNELLY - 06/28/2012 9:39 ZOOGLER General Info Information Given By : Patient Languages : [place] CHRISTEN CONNELLY - 06/28/2012 9:39 ZOOGLER Subjective Pain Symptoms : No CHRISTEN CONNELLY - 06/28/2012 9:39 ZOOGLER Dependent Habits Tobacco Use/Currently Using : No Exposure to Tobacco Smoke : Other: never Smoking Status : Never smoker CHRISTEN CONNELLY - 06/28/2012 9:39 ZOOGLER Allergy Allergies (Active) NKA Estimated Onset Date: Unspecified ; Created By: TERRI GIL MD; Reaction Status: Active ; Category: Drug ; Substance: NKA ; Type: Allergy ; Updated By: TERRI GIL MD; Reviewed Date: 11/11/2011 9:08 CDT Source: [facility] POWERCHART Document Id: [id number] LER documented in this encounter Plan of Treatment Not on filedocumented as of this encounter Procedures Procedure Name Priority Date/Time Associated Diagnosis Comme nts RAPID STREP A Routine 06/28/2012 9:50 AM Results for this SCREEN ZOOGLER procedure are i n the results section. RAPID STREP A Routine 06/28/2012 9:50 AM Results for this SCREEN ZOOGLER procedure are i n the results section. documented in this encounter Results Rapid Strep A Screen (06/28/2012 9:50 AM ZOOGLER) [facility] Method Time Signature HXRapid Strep POWERCHART Confirmation HXFinal Negative POWERCHART Specimen Anatomical Collection Method Collection Time Receive d Time (Source) Location / / Volume Laterality Throat 06/28/2012 9:50 AM 3 9:50 ZOOGLER AM ZOOGLER Phillip Stevenson APRN, C.N.P. LAB MICROBIOLOGY - GENERAL ORDERABLES Performing Organization Address City/State/ZIP Code Phon e Number POWERCHART Rapid Strep A Screen (06/28/2012 9:50 AM ZOOGLER) [facility] Method Time Signature HXStrep A POWERCHART Screen Rapid HXFinal Negative for POWERCHART Strep Group A by rapid screen. HXFinal Culture POWERCHART confirmation to follow. Specimen (Source) Anatomical Collection Method Collection Time Re ceived Time Location / / Volume Laterality Throat 06/28/2012 9:50 AM ZOOGLER Phillip Stevenson APRN, C.N.P. LAB MICROBIOLOGY - GENERAL ORDERABLES Performing Organization Address City/State/ZIP Code Phon e Number POWERCHART documented in this encounter Visit Diagnoses Not on filedocumented in this encounter Additional Health Concerns Assessment Noted Time PHQ-9 Depression Total Score: 3 11/11/2011 1:33 PM CDT documented as of this encounter
--- OUTSIDE RECORDS SUMMARY | 2021-12-15 01:21 | XMS_ITS | Encounter Summary ---
:1975 Author Organization [facility] Address [address] [place] [address] Care Team Providers Name Role Phone Unavailable Primary Care Provider Unavailable Encounter Details Date Type Department Care Team Description 05/04/2010 Hospital Encounter HX [facility] FB NURSE Jarad Nettles M.D. [address] [place], [place] [address] (Wo rk) Social History [...]
--- OUTSIDE RECORDS SUMMARY | 2021-12-15 01:21 | XMS_ITS | Encounter Summary ---
:1975 Author Organization [facility] Address [address] [place] [address] Care Team Providers Name Role Phone Unavailable Primary Care Provider Unavailable Encounter Details Date Type Department Care Team Description 11/11/2011 Hospital Encounter HX [facility] Jarad Hdez M.D. [address] [place], [place] [address] (Wo rk) Social History Tobacco Use Types Packs/Day Years Used Date Smoking Tobacco: Never Assessed Sex Assigned at Date Recorded Not on file documented as of this encounter Last Filed Vital Signs Vital Sign Reading Time Taken Comments Blood Pressure 122/80 11/11/2011 9:12 AM CDT Pulse 72 11/11/2011 9:12 AM CDT Temperature - - Respiratory Rate 16 11/11/2011 9:12 AM CDT Oxygen Saturation - - Inhaled Oxygen Concentration - - Weight 101 kg (221 lb 12.5 oz) 11/11/2011 9:12 AM CDT Height - - Body Mass Index - - documented in this encounter Progress Notes Naz Hdez M.D. - 11/11/2011 12:00 AM CDT [id number] CHIEF COMPLAINT/REASON FOR VISIT Multiple issues. HISTORY OF PRESENT ILLNESS This 35 year-old female presents to the clinic secondary to multiple issues. 1. She discontinued in her INH and vitamin B 12 secondary to a peripheral neuritis. It is almost resolved. Had a generalized achiness as well when she was on the INH. Completed nearly 6 1/2 months worth of treatment. Her symptoms have nearly resolved. 2. She also has questions in regards to weight loss. Has begun exercising 6 days per week, but has not begun a weight loss diet. Has discontinued soda. Has discontinued a few of her other medications as well as she was feeling better. 3. Is planning to see a transition nurse at [facility] secondary to her recurrent basal cell carcinomas secondary to the ability of pathology to give immediate reports at the time of the removal. EMR is reviewed. Please see the chart. CURRENT MEDICATIONS 1. Simvastatin 20 mg orally each day. 2. Loratadine 10 mg daily as needed PAST MEDICAL/SURGICAL HISTORY PREVENTIVE SERVICES Tobacco use: None. Mammogram: Non applicable secondary to stated age. Pap smear: 04-20-2011 Chlamydia: Non applicable secondary to stated age. Colon screening: Non applicable secondary to stated age. Depression: Yes PHQ-9 score of 3. Asthma: No Lipids: 05-20-2010 Tdap booster: 05-03-2010 Pneumovax: Non applicable secondary to stated age. Influenza: 04-20-2011 DEXA scan: Non applicable secondary to stated age. VITAL SIGNS WEIGHT: 100.6 kg TEMPERATURE: 37.2 RESPIRATORY RATE: 16 PULSE: 72 SYSTOLIC: 122 DIASTOLIC: 80 PHYSICAL EXAM GENERAL: Neatly dressed, well groomed. LUNGS: Clear to auscultation HEART: Regular rate and rhythm EXTREMITIES: Upper extremity strength is symmetric and full. Negative Tinel's negative Phalen's. 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 Positive radial ulnar pulses. IMPRESSION/REPORT/PLAN 1. History of basal cell skin cancers followed by derm 2. Hyperlipidemia 3. Peripheral neuritis related to INH. 4. Latent TB. 5. Overweight. PLAN Risks of discontinuing the INH at this time discussed in detail. All questions answered. Patient wishes to discontinue the product. Discussed multiple medications in regards to weight loss including sertraline. Reviewed risks of Meridia. Would not like to prescribe the latter of these medications. Will recommend checking laboratory evaluation with CBC, AST, vitamin B 12 and folate levels. Follow up a lipid profile as well. Signs and symptoms to lead to a more urgent evaluation are reviewed. Follow up is planned for one to three months or if any change occurs. She is comfortable with the plan. Naz Hdez M.D./david Electronically Signed By: NAZ HDEZ MD On: 11/16/2011 08:47 AM Modified by and Electronically Signed by: NAZ HDEZ MD On: 11/16/2011 08:47 AM Source: [facility] MHSDOLBEYNONRADSYS Document Id: [id number] documented in this encounter Nursing Notes Chandler Younger L.PPeymanNPeyman - 11/14/2011 4:37 PM CDT Labs 11-11-11 Result card sent. Electronically Signed By: CHANDLER YOUNGER LPN On: 11/14/2011 04:37 PM [facility] Document Id: [id number] Chandler Younger L.PPeymanNPeyman - 11/14/2011 4:37 PM CDT Labs 11-11-11 Result card sent. Electronically Signed By: CHANDLER YOUNGER LPN On: 11/14/2011 04:37 PM Source: [employer] Document Id: [id number] documented in this encounter Miscellaneous Notes Telephone Encounter - Naz Hdez M.D. - 08/10/2012 12:00 AM CDT [id number] Patient contacts MD to arrange for appointment today. Was seen in the Urgent Care 07/28/2012 secondary to eye irritation. Continues to have eye irritation with redness of her eye itself. Will recommend following up with ophthalmology. Information is relayed to her via nursing staff. She is comfortable with this plan. Naz Hdez M.D./simon Electronically Signed By: NAZ HDEZ MD On: 08/14/2012 10:02 AM Modified by and Electronically Signed by: NAZ HDEZ MD On: 08/14/2012 10:02 AM Source: [facility] MHSDOLBEYNONRADSYS Document Id: [id number] Miscellaneous - Naz Hdez M.D. - 11/11/2011 1:39 PM CDT Ambulatory Patient Summary [address] [address] Visit Information Name: JANA DUMONT Current Date: 11/11/2011 13:39:04 Physicians Attending Provider: NAZ HDEZ MD Primary Care Provider: NAZ HDEZ MD Your Medications Here is a list of your medications. It is important to take your medications as directed. Use a pillbox or chart to help remind you to take your medications. Please let your doctor or nurse know if you have problems taking your medications. Medication/Strength Dose Route Frequency Indications/Special Instructions/Comments simvastatin (simvastatin 20 mg oral tablet) 20 mg Oral once a day (at bedtime) loratadine (loratadine 10 mg oral tablet) 10 mg Oral once a day Attention: If you have any medications at [...] without Active Tuberculosis Active 05/25/2011 05/26/11 postive PPD Your Upcoming Appointments Date Time Location Reason Provider No Appointments found Your Goals/Additional instructions: Source: [facility] POWERCHART Document Id: [id number] Miscellprudence - Naz Hdez M.D. - 11/11/2011 1:39 PM CDT Ambulatory Patient Summary [address] [address] Visit Information Name: JANA DUMONT Current Date: 11/11/2011 13:39:04 Physicians Attending Provider: NAZ HDEZ MD Primary Care Provider: NAZ HDEZ MD Your Medications Here is a list of your medications. It is important to take your medications as directed. Use a pillbox or chart to help remind you to take your medications. Please let your doctor or nurse know if you have problems taking your medications. 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 - 11/11/2011 1:39 PM CDT Ambulatory Depart Summary [address] [place] [address] Visit Information Name: JANA DUMONT Visit Date: 11/11/2011 13:39:04 Attending Provider: NAZ HDEZ MD Primary Care Provider: NAZ HDEZ MD TIMJANA EMERSON has been given the following list of medications: Your Medications It is important to take your medications as directed. Use a pill box or chart to help remind you to take your medications. Please let your doctor or nurse know if you have problems taking your medications. Medication/Strength Dose Route Frequency Indications/Special Instructions/Comments simvastatin (simvastatin 20 mg oral tablet) 20 mg Oral once a day (at bedtime) loratadine (loratadine 10 mg oral tablet) 10 mg Oral once a day Attention: If you have any medications at home that are not on this list, DO NOT take them until youcontact your provider for clarification. Additional Information: Source: [facility] POWERCHART Document Id: [id number] Miscellaneous - Naz Hdez M.D. - 11/11/2011 1:39 PM CDT Ambulatory Depart Summary [address] [place] [address] Visit Information Name: JANA DUMONT Visit Date: 11/11/2011 13:39:04 Attending Provider: NAZ HDEZ MD Primary Care [...] medications. Medication/Strength Dose Route Frequency Indications/Special Instructions/Comments simvastatin (simvastatin 20 mg oral tablet) 20 mg Oral once a day (at bedtime) loratadine (loratadine 10 mg oral tablet) 10 mg Oral once a day Attention: If you have any medications at home that are not on this list, DO NOT take them until youcontact your provider for clarification. Additional Information: Source: [facility] JibJabCHART Document Id: [id number] Sammy - Naz Hdez M.D. - 11/11/2011 1:33 PM CDT PHQ-9 PHQ-9 Entered On: 11/11/2011 13:34 CDT Performed On: 11/11/2011 13:33 CDT by NAZ HDEZ MD PHQ-9 Little interest or pleasure in doing things : Not at all Feeling down, depressed, or hopeless : Not at all Trouble falling or staying asleep, or sleeping too much : Not at all Feeling tired or having little energy : Not at all Poor appetite or overeating : Nearly every day Feeling bad about yourself or that you are a failure : Not at all Trouble concentrating on things : Not at all Moving or speaking slowly; restless or fidgety : Not at all Thoughts that you would be better off /hurting self : Not at all PHQ-9 Calculated Score : 3 Problems make work, home, or dealing with others : Not difficult at all NAZ HDEZ MD - 11/11/2011 13:33 CDT Source: [facility] [employer]CHART Document Id: [id number] Sammy - Naz Hdez M.D. - 11/11/2011 1:33 PM CDT PHQ-9 PHQ-9 Entered On: 11/11/2011 13:34 CDT Performed On: 11/11/2011 13:33 CDT by NAZ HDEZ MD PHQ-9 Little interest or pleasure in doing things : Not at all Feeling down, depressed, or hopeless : Not at all Trouble falling or staying asleep, or sleeping too much : Not at all Feeling tired or having little energy : Not at all Poor appetite or overeating : Nearly every day Feeling bad about yourself or that you are a failure : Not at all Trouble concentrating on things : Not at all Moving or speaking slowly; restless or fidgety : Not at all Thoughts that you would be better off /hurting self : Not at all PHQ-9 Calculated Score : 3 Problems make work, home, or dealing with others : Not difficult at all NAZ HDEZ MD - 11/11/2011 13:33 CDT Source: [facility] [employer]ently Document Id: [id number] Miscellaneous - Chandler Younger L.P.N. - 11/11/2011 9:12 AM CDT Adult Online Publisher Intake/History Adult Online Publisher Intake/History Entered On: 11/11/2011 9:13 CDT Performed On: 11/11/2011 9:12 CDT by CHANDLER YOUNGER LPN Intake Chief Complaint : talk about meds Temperature Core : 37.2C(Converted to: 99.0DegF) Peripheral Pulse Rate : 72/min Respiratory Rate : 16/min Systolic Blood Pressure : 122mmHg Diastolic Blood Pressure : 80mmHg NIBP Mean : 94mmHg BP Location : Left upper extremity Blood Pressure Cuff Size : Regular Actual Weight : 100.6kg(Converted to: 221lb 13oz) Dosing Weight Clinic : 100.60kg CHANDLER YOUNGER LPN - 11/11/2011 9:12 CDT Subjective Pain Symptoms : No CHANDLER YOUNGER LPN - 11/11/2011 9:12 CDT Dependent Habits Tobacco Use/Currently Using : No Exposure to Tobacco Smoke : Other: never Smoking Status : Never smoker CHANDLER YOUNGER LPN - 11/11/2011 9:12 CDT Allergy Allergies (Active) NKA Estimated Onset Date: Unspecified ; Created By: NAZ HDEZ MD; Reaction Status: Active ; Category: Drug ; Substance: NKA ; Type: Allergy ; Updated By: ANZ HDEZ MD; Reviewed Date: 11/11/2011 9:08 CDT Source: [employer] Document Id: [id number] Miscellaneous - Chandler Younger L.P.N. - 11/11/2011 9:12 AM CDT Adult Online Publisher Intake/History Adult Online Publisher Intake/History Entered On: 11/11/2011 9:13 CDT Performed On: 11/11/2011 9:12 CDT by CHANDLER YOUNGER LPN Intake Chief Complaint : talk about meds Temperature Core : 37.2C(Converted to: 99.0DegF) Peripheral Pulse Rate : 72/min Respiratory Rate : 16/min Systolic Blood Pressure : 122mmHg Diastolic Blood Pressure : 80mmHg NIBP Mean : 94mmHg BP Location : Left upper extremity Blood Pressure Cuff Size : Regular Actual Weight : 100.6kg(Converted to: 221lb 13oz) Dosing Weight Clinic : 100.60kg CHANDLER YOUNGER LPN - 11/11/2011 9:12 CDT Subjective Pain Symptoms : No CHANDLER YOUNGER LPN - 11/11/2011 9:12 CDT Dependent Habits Tobacco Use/Currently Using : No Exposure to Tobacco Smoke : Other: never Smoking Status : Never smoker CHANDLER YOUNGER LPN - 11/11/2011 9:12 CDT Allergy Allergies (Active) NKA Estimated Onset Date: Unspecified ; Created By: NAZ HDEZ MD; Reaction Status: Active ; Category: Drug ; Substance: NKA ; Type: Allergy ; Updated By: NAZ HDEZ MD; Reviewed Date: 11/11/2011 9:08 CDT Source: [employer] Document Id: [id number] documented in this encounter Plan of Treatment Not on filedocumented as of this encounter Procedures Procedure Name Priority Date/Time Associated Comments Diagnosis LIPID PANEL, S Routine 11/11/2011 10:12 Results f or this AM CDT procedure are i n the results section. VITAMIN B12 AND FOLATE, Routine 11/11/2011 10:12 Results for this S AM CDT procedure are i n the results section. AUTOMATED DIFFERENTIAL, Routine 11/11/2011 10:12 Results for this B AM CDT procedure are i n the results section. CBC WITH DIFFERENTIAL, B Routine 11/11/2011 10:12 Results for this AM CDT procedure are i n the results section. ASPARTATE Routine 11/11/2011 10:12 Results for this AMINOTRANSFERASE (AST), AM CDT proc edure are in S/P the results section. documented in this encounter Results Automated Differential (11/11/2011 10:12 AM CDT) athologist Signature Neutro % 52.0 34.0 - 71.1 POWERCHART Lymphocytes % 38.9 19.3 - 51.7 POWERCHART HX [place] % 7.5 4.7 - 12.5 POWERCHART HX Eos % 1.3 0.7 - 5.8 POWERCHART HX Baso % 0.3 0.1 - 1.2 POWERCHART Specimen Anatomical Collection Method Collection Time Receive d Time (Source) Location / / Volume Laterality Blood 11/11/2011 10:12 11/11/2011 AM CDT 10:12 AM CDT Naz Hdez M.D. LAB BLOOD ADD-ON Performing Organization Address City/State/ZIP Code Phon e Number POWERCHART CBC with Differential (11/11/2011 10:12 AM CDT) athologist Signature Leukocytes 6.0 3.4 - 10.5 POWERCHART X109L Erythrocytes 4.87 3.90 - POWERCHART 5.03 [id number] Hemoglobin 13.9 12.0 - POWERCHART 15.5 GDL Hematocrit 40.7 34.9 - POWERCHART 44.5 MCV 83.6 82.0 - POWERCHART 98.0 FL Platelet Count 247 150 - 450 POWERCHART X109L HX RDW 13.9 11.9 - POWERCHART 15.5 HXDifferential? Auto POWERCHART Specimen (Source) Anatomical Collection Method Collection Time Re ceived Time Location / / Volume Laterality Blood 11/11/2011 10:12 AM CDT Naz Hdez M.D. LAB BLOOD ADD-ON Performing Organization Address City/State/ZIP Code Phon e Number POWERCHART Vitamin B12 Level and Folate (11/11/2011 10:12 AM CDT) P athologist Signature Vitamin B12 398 180 - 914 POWERCHART Assay, S NGL Folate, S >20.0 >=4.0 MCGL POWERCHART Comment: Test Performed by: [facility] [address] [place] [address] Community Outreach Coordinator: Henry hoang III, M.D. Specimen (Source) Anatomical Collection Method Collection Time Re ceived Time Location / / Volume Laterality Blood 11/11/2011 10:12 AM CDT Naz Hdez M.D. LAB BLOOD NON ADD-ON Performing Organization Address City/[facility]/ZIP Code Phon e Number POWERCHART Lipid Panel (11/11/2011 10:12 AM CDT) Analysis Performed At Patho logist Time Signature Cholesterol, Total 153 0 - 200 POWERCHART MGDL HX HDL 47.0 40.0 - POWERCHART 60.0 MGDL Triglycerides 138 0 - 150 POWERCHART MGDL Calculated LDL 78 0 - 100 POWERCHART MGDL Specimen (Source) Anatomical Collection Method Collection Time Re ceived Time Location / / Volume Laterality Blood 11/11/2011 10:12 AM CDT Naz Hdez M.D. LAB BLOOD ADD-ON Performing Organization Address City/State/ZIP Code Phon e Number POWERCHART AST (Aspartate Aminotransferase) (11/11/2011 10:12 AM CDT) Patholo gist Method Time Signature Aspartate 26 8 - 43 POWERCHART Aminotransferase UNITL (AST), S Specimen (Source) Anatomical Collection Method Collection Time Re ceived Time Location / / Volume Laterality Blood 11/11/2011 10:12 AM CDT Naz Hdez M.D. LAB BLOOD ADD-ON Performing Organization Address City/State/ZIP Code Phon e Number POWERCHART documented in this encounter Visit Diagnoses Not on filedocumented in this encounter Additional Health Concerns Assessment Noted Time PHQ-9 Depression Total Score: 3 11/11/2011 1:33 PM CDT documented as of this encounter
--- OUTSIDE RECORDS SUMMARY | 2021-12-15 01:21 | XMS_ITS | Encounter Summary ---
:1975 Author Organization [facility] Address [address] [place] [address] Care Team Providers Name Role Phone Unavailable Primary Care Provider Unavailable Encounter Details Date Type Department Care Team Description 06/24/2013 Hospital Encounter HX [facility] Jarad Hdez M.D. [address] [place], [place] [address] (Wo rk) Social History Tobacco Use Types Packs/Day Years Used Date Smoking Tobacco: Never Assessed Sex Assigned at Date Recorded Not on file documented as of this encounter Last Filed Vital Signs Vital Sign Reading Time Taken Comments Blood Pressure 120/78 06/24/2013 8:36 AM SQL APPLICATION DEVELOPER Pulse 80 06/24/2013 8:36 AM SQL APPLICATION DEVELOPER Temperature - - Respiratory Rate 12 06/24/2013 8:36 AM SQL APPLICATION DEVELOPER Oxygen Saturation - - Inhaled Oxygen Concentration - - Weight 92.7 kg (204 lb 5.9 oz) 06/24/2013 8:36 AM SQL APPLICATION DEVELOPER Height 161.5 cm (5' 3.58) 06/24/2013 8:36 AM SQL APPLICATION DEVELOPER Body Mass Index 35.54 06/24/2013 8:36 AM SQL APPLICATION DEVELOPER documented in this encounter H&P Notes Naz Hdez M.D. - 06/24/2013 8:28 AM CST [id number] CHIEF COMPLAINT/REASON FOR VISIT Annual exam. HISTORY OF PRESENT ILLNESS This 37-year-old female presents to the clinic for annual evaluation. Restarted her citalopram and is at near baseline. Not too long after she restarted the product she was at a basketball game, leaving the bathroom and she fainted. Was on the floor and found by somebody. Sat with a nurse throughout the rest of the game, and went home without any problems. Did not seek any evaluation at that time. Has never had this happen to her in the past and wonders if it could be related to the medication. Is taking her other medicines as before and as noted. Is fasting today. Is seeing Phyllis Mancuso M.D. foratypical nevi. Has had basal cell carcinomas. Is going every three months. Has had episodic numbnessin her hands in the ams. EMR reviewed. MEDICATIONS 1. Simvastatin 20 mg each day. 2. Fish oil to be discontinued in the near future. 3. Ditropan 5 mg 3 times per day as needed for stress incontinence symptoms. Patient is trialed at this time. 4. Citalopram 20 mg daily. ALLERGIES No known drug allergies. SYSTEMS REVIEW CONSTITUTIONAL: Slow weight gain over the years with some weight loss on occasion. No fevers, chillsor night sweats. No change in her energy. EYES: No blurred or double vision and no eye pain. Last ophthalmic exam summer. ENT: No hearing loss, no tinnitus, no ear pain, no dizziness, no nasal c ongestion, no sore throat and no hoarseness. Dental exams every six months, last being November 2012. CARDIOVASCULAR: See the chart. No palpitations, no ankle edema, no true claudication and no chest pain.RESPIRATORY: No cough, no wheezing, no hemoptysis and no shortness of breath. GASTROINTESTINAL: No abdominal pain and no heartburn. No problems with dysphagia, hematemesis or change in daily bowel regimen. No hematochezia and no problems with hemorrhoids. GENITOURINARY: No pain with urination. No urinary frequency. No vaginal bleeding or spotting apart from monthly 2 to 3 day menses. No vaginal discharge. No history of abnormal Pap smears. Using condoms for contraception. No concerns regarding sexually transmitted diseases. MUSCULOSKELETAL: No back, neck or joint pain. No swelling or stiffness. No myalgias or weakness. INTEGUMENTARY: See the chart. Wears sunscreen. No changes in hair or nails. Does self-breast exams. NEUROLOGIC: No history of syncopal events or seizures. PSYCHIATRIC: See the chart. ENDOCRINE: No history of thyroid problems. See the chart. HEMATOLOGIC/LYMPHATIC: No history of anemia or bleeding. ALLERGIC/IMMUNOLOGIC: Please see above. PAST MEDICAL/SURGICAL HISTORY SURGERIES: 1. Basal cell carcinoma removed from the right breast and other areas on her body 2004. Follows Som Mancuso M.D. last being followed 2012, and has an appointment coming up in the near future. 2. Colposcopy secondary to abnormal Pap smear with no recurrence 1996. Other hospitalizations: G2, P2 vaginal delivery. Other major illnesses: 1. Premenstrual syndrome with anxiety and depression. 2. Hyperlipidemia. 3. Overweight. 4. History of basal cell carcinoma followed by animal humane agent supervisor, Dr. Phyllis Mancuso. 5. Impaired fasting glucose in 2008 currently stable. 6. Palpitations. 7. Stress incontinence. 8. 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 PREVENTIVE SERVICES: Tobacco use: None. Mammogram: Non applicable secondary to stated age. Pap smear: 06/24/2013. Chlamydia: Non applicable secondary to stated age. Colon screening: Non applicable secondary to stated age. Depression: No. Asthma: No. Lipids: 06/24/2013. Tetanus: 05/03/2010. Pneumovax: Non applicable secondary to stated age. Influenza: Declined. DEXA scan: Non applicable secondary to stated age. SOCIAL HISTORY ALCOHOL: A few times per year. OTHER SOCIAL DRUGS: None. CAFFEINE USE: A soda each day. SEATBELT USE: Wears a seatbelt. DIET: Tries to follow a healthy diet. LAST BREAST EXAM: 2012. CALCIUM INTAKE: Adequate. EXERCISE: Swimming three times per week. Treadmill one or two times per week for 1/2 hour. FAMILY HISTORY Mother has hyperlipidemia status post an NE at age 47. Father status post melanoma [...] children in good health. VITAL SIGNS Height 161.5 cm. Weight 92.7 kg. Temperature 36.2. Respiratory rate 12. Pulse 80. Systolic 120. Diastolic 78. PHYSICAL EXAMINATION GENERAL: Neatly dressed and well groomed and in no apparent distress. SKIN: Solar changes in a sunward distribution with numerous scars consistent with her history. HEAD: No trauma, tenderness or masses. EYES: [...] No thyroid masses, tenderness or enlargement. BREASTS: Some fibrocystic changes, but not tender. No masses. No galactorrhea. Negative evaluation of the axilla. PERIPHERAL VESSELS: Positive radial, ulnar, femoral, posterior tibial and dorsalis pedis pulses. HEART: Regular rate and rhythm. No clicks, rubs or murmurs. Carotid arteries reveal no bruits. Abdominal aorta is not prominent. No ankle edema. No varicosities. LUNGS: Clear to auscultation. No palpable chest wall masses. ABDOMEN: Aorta is not prominent, but exam is limited secondary to body habitus. Soft and nontender. Bowel sounds present. No organomegaly. PELVIS: No bony abnormalities. RECTUM: Patent anus. [...] patients stated age. GAIT: Smooth easy. MENTAL: Speech is of normal rate and volume, articulate, coherent, spontaneous with no notation of abnormalities. Thought processes reveal intact abstract reasoning and computation. No loose tangentialcircumstantial thoughts. No hallucinations. No delusions. No preoccupation with violence. No homicidal or suicidal ideations. No ruminations. Excellent insight into situation and illness process. Oriented to person, place and time. Recent and remote memory are intact. Attention span and concentration are at baseline. Language and fund of knowledge suggest average intellect. Mood and affect reflect noevidence of depression, anxiety, agitation, hypomania or emotional lability. NEURO: Reflexes 2+ in triceps, biceps, knees and ankles. IMPRESSION/REPORT/PLAN 1. Annual exam. 2. Anxiety with depression. 3. Recent syncope, etiology not clear. 4. Overweight. 5. Atypical nevi, followed by Dermatology. 6. Hyperlipidemia. 7. History of hyperglycemia. 8. History of abnormal Pap smears. PLAN: Reviewed exercise, cholesterol, diet/weight loss, calcium intake, alcohol use, immunizations, tobacco use, caffeine use, self-breast exams, mammography, colonic studies including colonoscopy or hemoccult testing, hormone replacement therapy as appropriate, seatbelt use, back care, depression, eye exams and other issues. Follow up if any change occurs or as noted. Will follow up ThinPrep accordingly. Agree with plans to continue with Dermatology assessments. Will recommend checking CBC, basis metabolic profile, AST, lipid profile, urinalysis and following up accordingly. Will check an EKG given the above history, although could indeed be a simple vasovagal faint as she did have prodrome consistent with this diagnosis. Signs and symptoms to lead to urgent evaluation are reviewed. Supportive measures discussed in detail. She is comfortable with the plan. Naz Hdez M.D./shannon Electronically Signed By: NAZ HDEZ MD On: 06/26/2013 10:14 AM Modified by and Electronically Signed by: NAZ HDEZ MD On: 06/26/2013 10:14 AM Source: [facility] MHSDOLBEYNONRADSYS Document Id: [id number] APPLICATION DEVELOPER documented in this encounter Nursing Notes Velia Younger L.P.N. - 06/28/2013 1:44 PM CST Labs 06-24-13 Result card sent. Electronically Signed By: VELIA YOUNGER LPN On: 06/28/2013 01:44 PM [email or web address] Document Id: [id number] APPLICATION DEVELOPER Velia Younger L.P.N. - 06/28/2013 1:44 PM CST Labs 06-24-13 Result card sent. Electronically Signed By: VELIA YOUNGER LPN On: 06/28/2013 01:44 PM [facility]: [email or web address] Document Id: [id number] APPLICATION DEVELOPER documented in this encounter Miscellaneous Notes Miscellaneous - Naz Hdez M.D. - 06/24/2013 10:27 AM CST Ambulatory Patient Summary [address] [place] [address] Visit Information Name: JANA DUMONT [facility] Number: [id number] Current Date: 06/24/2013 10:27:04 Physicians Attending Provider: NAZ HDEZ MD Primary [...] Take Indications/Special Instructions/Comments/Notes for Patient Medication Changes/Routing citalopram (citalopram 20 mg oral tablet) 1 Tablet(s), Oral, once a day Routed to [id number] [place], [place] [id number] *loratadine (loratadine 10 mg oral tablet) 1 Tablet(s), Oral, once a day *oxybutynin (Ditropan 5 mg oral tablet) See Instructions 1 tab PO TID as needed for leakage simvastatin (simvastatin 20 mg oral tablet) 1 Tablet(s), Oral, once a day (at bedtime) needs follow up Routed to [address] [place] [id number] * You have let us know that you are not taking this medication as listed. Please talk with your primary care provider or the health care provider who prescribed the medication as soon as possible. Stop Taking the Following Medications: Medication list as of 06-24-13 10:27 Attention: If you have any medications at home that are not on this list, DO NOT take them until youcontact your provider for clarification. Give a copy of your medication list to your primary care provider. Update your medication list any time medications or doses are changed and carry your medication list at all times in case of emergency. Your Allergies & Intolerances Substance Reaction Symptoms [...] Time Location Reason Provider No Appointments found Attention: Contact your local Clinic if further appointment detail needed. Your Goals/Additional instructions: Source: [facility] POWERCHART Document Id: [id number] APPLICATION DEVELOPER Miscellaneous - Naz Hdez M.D. - 06/24/2013 10:27 AM CST Ambulatory Patient Summary [address] [place] [address] Visit Information Name: JANA DUMONT [facility] Number: [id number] Current Date: 06/24/2013 10:27:04 Physicians Attending Provider: NAZ HDEZ MD Primary [...] Take Indications/Special Instructions/Comments/Notes for Patient Medication Changes/Routing citalopram (citalopram 20 mg oral tablet) 1 Tablet(s), Oral, once a day Routed to [address] [id number] *loratadine (loratadine 10 mg oral tablet) 1 Tablet(s), Oral, once a day *oxybutynin (Ditropan 5 mg oral tablet) See Instructions 1 tab PO TID as needed for leakage simvastatin (simvastatin 20 mg oral tablet) 1 Tablet(s), Oral, once a day (at bedtime) needs follow up Routed to [address] [id number] * You have let us know that you are not taking this medication as listed. Please talk with your primary care provider or the health care provider who prescribed the medication as soon as possible. Stop Taking the Following Medications: Medication list as of 06-24-13 10:27 Attention: If you have any medications at home that are not on this list, DO NOT take them until youcontact your provider for clarification. Give a copy of your medication list to your primary care provider. Update your medication list any time medications or doses are changed and carry your medication list at all times in case of emergency. Your Allergies & Intolerances Substance Reaction Symptoms [...] Time Location Reason Provider No Appointments found Attention: Contact your local Clinic if further appointment detail needed. Your Goals/Additional instructions: Source: [facility] POWERCHART Document Id: [id number] APPLICATION DEVELOPER Miscellaneous - Naz Hdez M.D. - 06/24/2013 10:27 AM CST Ambulatory Depart Summary [address] [address] Visit Information Name: JANA DUMONT [facility] Number: [id number] Visit Date: 06/24/2013 10:27:02 Attending Provider: NAZ HDEZ MD Primary Care [...] Take Indications/Special Instructions/Comments/Notes for Patient Medication Changes/Routing citalopram (citalopram 20 mg oral tablet) 1 Tablet(s), Oral, once a day Routed to [id number] [place] [id number] *loratadine (loratadine 10 mg oral tablet) 1 Tablet(s), Oral, once a day *oxybutynin (Ditropan 5 mg oral tablet) See Instructions 1 tab PO TID as needed for leakage simvastatin (simvastatin 20 mg oral tablet) 1 Tablet(s), Oral, once a day (at bedtime) needs follow up Routed to [facility] [address] [place], [place] [phone] * You have let us know that you are not taking this medication as listed. Please talk with your primary care provider or the health care provider who prescribed the medication as soon as possible. Stop Taking the Following Medications: Medication list as of 06-24-13 10:27 Attention: If you have any medications at home that are not on this list, DO NOT take them until youcontact your provider for clarification. Give a copy of your medication list to your primary care provider. Update your medication list any time medications or doses are changed and carry your medication list at all times in case of emergency. Additional Information: Source: [facility] POWERCHART Document Id: [id number] APPLICATION DEVELOPER Miscellaneous - Naz Hdez M.D. - 06/24/2013 10:27 AM CST Ambulatory Depart Summary [address] [address] Visit Information Name: JANA DUMONT [facility] Number: [id number] Visit Date: 06/24/2013 10:27:02 Attending Provider: NAZ HDEZ MD Primary Care [...] Take Indications/Special Instructions/Comments/Notes for Patient Medication Changes/Routing citalopram (citalopram 20 mg oral tablet) 1 Tablet(s), Oral, once a day Routed to [id number] [place], [place] [id number] *loratadine (loratadine 10 mg oral tablet) 1 Tablet(s), Oral, once a day *oxybutynin (Ditropan 5 mg oral tablet) See Instructions 1 tab PO TID as needed for leakage simvastatin (simvastatin 20 mg oral tablet) 1 Tablet(s), Oral, once a day (at bedtime) needs follow up Routed to [address] [id number] * You have let us know that you are not taking this medication as listed. Please talk with your primary care provider or the health care provider who prescribed the medication as soon as possible. Stop Taking the Following Medications: Medication list as of 06-24-13 10:27 Attention: If you have any medications at home that are not on this list, DO NOT take them until youcontact your provider for clarification. Give a copy of your medication list to your primary care provider. Update your medication list any time medications or doses are changed and carry your medication list at all times in case of emergency. Additional Information: Source: [facility] POWERCHART Document Id: [id number] APPLICATION DEVELOPER Miscellaneous - Velia Younger L.P.N. - 06/24/2013 8:36 AM CST Adult Human Relations Teacher Intake/History Adult Human Relations Teacher Intake/History Entered On: 06/24/2013 8:37 SQL APPLICATION DEVELOPER Performed On: 06/24/2013 8:36 SQL APPLICATION DEVELOPER by VELIA YOUNGER LPN Intake Chief Complaint : physical Temperature Core : 36.2 DegC(Converted to: 97.2 DegF) (LOW) Peripheral Pulse Rate : 80 /min Respiratory Rate : 12 /min (LOW) Systolic Blood Pressure : 120 mmHg Diastolic Blood Pressure : 78 mmHg NIBP Mean : 92 mmHg BP Location : Left upper extremity Blood Pressure Cuff Size : Regular Height : 161.5 cm(Converted to: 5 ft 4 inch(es), 63.58 inch(es)) Actual Weight : 92.7 kg(Converted to: 204 lb 6 oz) Dosing Weight Clinic : 92.7 kg Clinic BSA : 2.04 Body Mass Index : 35.54 kg/m2 VELIA YOUNGER LPN - 06/24/2013 8:36 SQL APPLICATION DEVELOPER General Info Languages : Slovak VELIA YOUNGER LPN - 06/24/2013 8:36 SQL APPLICATION DEVELOPER Subjective Pain Symptoms : No VELIA YOUNGER LPN - 06/24/2013 8:36 SQL APPLICATION DEVELOPER Dependent Habits Tobacco Use/Currently Using : No Tobacco Use/Last 12 months : No Exposure to Tobacco Smoke : Other: never Smoking Status : Never smoker VELIA YOUNGER LPN - 06/24/2013 8:36 SQL APPLICATION DEVELOPER Caffeine Use Grid Caffeine Use : None VELIA YOUNGER LPN - 06/24/2013 8:36 SQL APPLICATION DEVELOPER Recreational Drug Use Grid Drug Use : None VELIA YOUNGER LPN - 06/24/2013 8:36 SQL APPLICATION DEVELOPER Source: [employer] Document Id: [id number] SQL APPLICATION DEVELOPER!31 APPLICATION DEVELOPER Miscellaneous - Velia Younger LPeymanP.NPeyman - 06/24/2013 8:36 AM CST Health Assessment Health Assessment Entered On: 06/24/2013 8:38 SQL APPLICATION DEVELOPER Performed On: 06/24/2013 8:36 SQL APPLICATION DEVELOPER by VELIA YOUNGER LPN Health Assessment Complete Health Assessment Complete or Modified : Annual Health Assessment Annual Health Assessment Completed : Yes VELIA YOUNGER LPN - 06/24/2013 8:36 SQL APPLICATION DEVELOPER Nutrition Nutrition Risk Factors by History Adult : None VELIA YOUNGER LPN - 06/24/2013 8:36 SQL APPLICATION DEVELOPER Functional Current Daily Living Assistance : None VELIA YOUNGER LPN - 06/24/2013 8:36 SQL APPLICATION DEVELOPER Dependent Habits Tobacco Use/Currently Using : No Tobacco Use/Last 12 months : No Exposure to Tobacco Smoke : Other: never Smoking Status : Never smoker VELIA YOUNGER LPN - 06/24/2013 8:36 SQL APPLICATION DEVELOPER Caffeine Use Grid Caffeine Use : None VELIA YOUNGER LPN - 06/24/2013 8:36 SQL APPLICATION DEVELOPER Recreational Drug Use Grid Drug Use : None VELIA YOUNGER LPN - 06/24/2013 8:36 SQL APPLICATION DEVELOPER Psychosocial Domestic Abuse Concerns : None VELIA YOUNGER LPN - 06/24/2013 8:36 SQL APPLICATION DEVELOPER Advance Directive Advanced Directives : No VELIA YOUNGER LPN - 06/24/2013 8:36 SQL APPLICATION DEVELOPER Educ Needs Learning Style Preference Adult Grid Patient : Printed materials Family : Printed materials VELIA YOUNGER LPN - 06/24/2013 8:36 SQL APPLICATION DEVELOPER Source: [facility] POWERCHART Document Id: [id number] SQL APPLICATION DEVELOPER!27 APPLICATION DEVELOPER Miscellaneous - Velia Younger L.PPeymanNPeyman - 06/24/2013 8:36 AM CST Adult Human Relations Teacher Intake/History Adult Human Relations Teacher Intake/History Entered On: 06/24/2013 8:37 SQL APPLICATION DEVELOPER Performed On: 06/24/2013 8:36 SQL APPLICATION DEVELOPER by VELIA YOUNGER LPN Intake Chief Complaint : physical Temperature Core : 36.2 DegC(Converted to: 97.2 DegF) (LOW) Peripheral Pulse Rate : 80 /min Respiratory Rate : 12 /min (LOW) Systolic Blood Pressure : 120 mmHg Diastolic Blood Pressure : 78 mmHg NIBP Mean : 92 mmHg BP Location : Left upper extremity Blood Pressure Cuff Size : Regular Height : 161.5 cm(Converted to: 5 ft 4 inch(es), 63.58 inch(es)) Actual Weight : 92.7 kg(Converted to: 204 lb 6 oz) Dosing Weight Clinic : 92.7 kg Clinic BSA : 2.04 Body Mass Index : 35.54 kg/m2 VELIA YOUNGER LPN - 06/24/2013 8:36 SQL APPLICATION DEVELOPER General Info Languages : Slovak VELIA YOUNGER LPN - 06/24/2013 8:36 SQL APPLICATION DEVELOPER Subjective Pain Symptoms : No VELIA YOUNGER LPN - 06/24/2013 8:36 SQL APPLICATION DEVELOPER Dependent Habits Tobacco Use/Currently Using : No Tobacco Use/Last 12 months : No Exposure to Tobacco Smoke : Other: never Smoking Status : Never smoker VELIA YOUNGER LPN - 06/24/2013 8:36 SQL APPLICATION DEVELOPER Caffeine Use Grid Caffeine Use : None VELIA YOUNGER LPN - 06/24/2013 8:36 SQL APPLICATION DEVELOPER Recreational Drug Use Grid Drug Use : None EDUARDO YOUNGERFER NANCY ANTONIO - 06/24/2013 8:36 SQL APPLICATION DEVELOPER Source: [employer] Document Id: [id number] SQL APPLICATION DEVELOPER!31 APPLICATION DEVELOPER Miscellaneous - Velia Younger LPeymanP.N. - 06/24/2013 8:36 AM CST Health Assessment Health Assessment Entered On: 06/24/2013 8:38 SQL APPLICATION DEVELOPER Performed On: 06/24/2013 8:36 SQL APPLICATION DEVELOPER by VELIA YOUNGER LPN Health Assessment Complete Health Assessment Complete or Modified : Annual Health Assessment Annual Health Assessment Completed : Yes VELIA YOUNGER LPN - 06/24/2013 8:36 SQL APPLICATION DEVELOPER Nutrition Nutrition Risk Factors by History Adult : None VELIA YOUNGER LPN - 06/24/2013 8:36 SQL APPLICATION DEVELOPER Functional Current Daily Living Assistance : None VELIA YOUNGER LPN - 06/24/2013 8:36 SQL APPLICATION DEVELOPER Dependent Habits Tobacco Use/Currently Using : No Tobacco Use/Last 12 months : No Exposure to Tobacco Smoke : Other: never Smoking Status : Never smoker VELIA YOUNGER LPN - 06/24/2013 8:36 SQL APPLICATION DEVELOPER Caffeine Use Grid Caffeine Use : None VELIA YOUNGER LPN - 06/24/2013 8:36 SQL APPLICATION DEVELOPER Recreational Drug Use Grid Drug Use : None VELIA YOUNGER LPN - 06/24/2013 8:36 SQL APPLICATION DEVELOPER Psychosocial Domestic Abuse Concerns : None VELIA YOUNGER LPN - 06/24/2013 8:36 SQL APPLICATION DEVELOPER Advance Directive Advanced Directives : No VELIA YOUNGER LPN - 06/24/2013 8:36 SQL APPLICATION DEVELOPER Educ Needs Learning Style Preference Adult Grid Patient : Printed materials Family : Printed materials EVLIA YOUNGER LPN - 06/24/2013 8:36 SQL APPLICATION DEVELOPER Source: [employer] Document Id: [id number] SQL APPLICATION DEVELOPER!27 APPLICATION DEVELOPER documented in this encounter Plan of Treatment Not on filedocumented as of this encounter Procedures Procedure Name Priority Date/Time Associated Comments Diagnosis DIPSTICK, U Routine 06/24/2013 9:43 Results for this AM SQL APPLICATION DEVELOPER procedure are i n the results section. LIPID PANEL, S Routine 06/24/2013 9:25 Results fo r this AM SQL APPLICATION DEVELOPER procedure are i n the results section. AUTOMATED DIFFERENTIAL, Routine 06/24/2013 9:25 R esults for this B AM SQL APPLICATION DEVELOPER procedure are i n the results section. CBC WITH DIFFERENTIAL, B Routine 06/24/2013 9:25 Results for this AM SQL APPLICATION DEVELOPER procedure are i n the results section. ASPARTATE Routine 06/24/2013 9:25 Results for this AMINOTRANSFERASE (AST), AM SQL APPLICATION DEVELOPER proc edure are in S/P the results section. BASIC METABOLIC PANEL, Routine 06/24/2013 9:25 Re sults for this S/P AM SQL APPLICATION DEVELOPER procedure are i n the results section. THINPREP SCREEN HPV Routine 06/24/2013 8:52 Resul ts for this REFLEX AM SQL APPLICATION DEVELOPER procedure are i n the results section. documented in this encounter Results (ABNORMAL) Dipstick, Urine (06/24/2013 9:43 AM SQL APPLICATION DEVELOPER) [facility] Time Signature Source Clean Void POWERCHART Urine HXUr Color Yellow POWERCHART Appearance Clear POWERCHART Glucose Negative Negative POWERCHART HXBILIRUBIN Negative Negative POWERCHART Ketones, QL(U) Negative Negative POWERCHART Specific 1.025 (A) 1.020 POWERCHART Rodessa, POCT, U HXBLOOD Trace-intact POWERCHART pH, POCT, Urine 7.5 5.0 - 8.0 POWERCHART Protein, Ur, Dip 30 (A) Negative POWERCHART Urobilinogen 0.2 0.2 - 1.0 POWERCHART HXNITRITE Negative Negative POWERCHART Leukocyte Negative Negative POWERCHART Esterase Specimen (Source) Anatomical Collection Method Collection Time Re ceived Time Location / / Volume Laterality Urine 06/24/2013 9:43 AM SQL APPLICATION DEVELOPER Naz Hdez M.D. LAB URINE ORDERABLES Performing Organization Address City/State/ZIP Code Phon e Number POWERCHART Automated Differential (06/24/2013 9:25 AM SQL APPLICATION DEVELOPER) P athologist Signature Neutro % 52.3 34.0 - POWERCHART 71.1 Lymphocytes % 37.7 19.3 - POWERCHART 51.7 HX [place] % 8.7 4.7 - 12.5 POWERCHART HX Eos % 1.0 0.7 - 5.8 POWERCHART HX Baso % 0.3 0.1 - 1.2 POWERCHART Absolute 2.99 1.70 - POWERCHART Neutrophils 7.00 109L Lymphocytes 2.16 0.90 - POWERCHART 2.90 X109L Monocytes 0.50 0.30 - POWERCHART 0.90 X109L Eosinophils 0.06 0.05 - POWERCHART 0.50 X109L Absolute 0.02 0.00 - POWERCHART Basophil 0.30 X109L Specimen Anatomical Collection Method Collection Time Receive d Time (Source) Location / / Volume Laterality Blood 06/24/2013 9:25 AM 4 9:25 SQL APPLICATION DEVELOPER AM SQL APPLICATION DEVELOPER Naz Hdez M.D. LAB BLOOD ADD-ON Performing Organization Address City/State/ZIP Code Phon e Number POWERCHART CBC with Differential (06/24/2013 9:25 AM SQL APPLICATION DEVELOPER) athologist Signature Leukocytes 5.7 3.4 - 10.5 POWERCHART X109L Erythrocytes 5.01 3.90 - POWERCHART 5.03 R0753V Hemoglobin 14.3 12.0 - POWERCHART 15.5 GDL Hematocrit 43.2 34.9 - POWERCHART 44.5 MCV 86.2 82.0 - POWERCHART 98.0 FL Platelet Count 251 150 - 450 POWERCHART X109L HX RDW 13.8 11.9 - POWERCHART 15.5 HXDifferential? Auto POWERCHART Specimen (Source) Anatomical Collection Method Collection Time Re ceived Time Location / / Volume Laterality Blood 06/24/2013 9:25 AM SQL APPLICATION DEVELOPER Naz Hdez M.D. LAB BLOOD ADD-ON Performing Organization Address City/State/ZIP Code Phon e Number POWERCHART BMP (Basic Metabolic Panel) (06/24/2013 9:25 AM SQL APPLICATION DEVELOPER) athologist Signature BUN (Blood Urea 9 6 - 20 MGDL POWERCHART Nitrogen), S Creatinine, S 0.7 0.7 - 1.2 POWERCHART MGDL Glucose 104 POWERCHART Potassium, S 4.3 3.5 - 4.8 POWERCHART MMOLL Sodium, S 142 135 - 145 POWERCHART MMOLL Chloride, S 103 100 - 108 POWERCHART MMOLL CO2 Total 28 22 - 30 POWERCHART MMOLL Calcium, Total, 9.3 8.5 - 10.5 POWERCHART S MGDL HXeGFR (MDRD) >60 MLMIN POWERCHART eGFR >60 MLMIN POWERCHART Black/ Specimen (Source) Anatomical Collection Method Collection Time Re ceived Time Location / / Volume Laterality Blood 06/24/2013 9:25 AM SQL APPLICATION DEVELOPER Naz Hdez M.D. LAB BLOOD ADD-ON Performing Organization Address City/State/ZIP Code Phon e Number POWERCHART Lipid Panel (06/24/2013 9:25 AM SQL APPLICATION DEVELOPER) Analysis Performed At [facility] Time Signature Cholesterol, Total 163 0 - 200 POWERCHART MGDL HX HDL 56.0 40.0 - POWERCHART 60.0 MGDL Triglycerides 118 0 - 150 POWERCHART MGDL Calculated LDL 83 0 - 100 POWERCHART MGDL Specimen (Source) Anatomical Collection Method Collection Time Re ceived Time Location / / Volume Laterality Blood 06/24/2013 9:25 AM SQL APPLICATION DEVELOPER Naz Hdez M.D. LAB BLOOD ADD-ON Performing Organization Address City/State/ZIP Code Phon e Number POWERCHART AST (Aspartate Aminotransferase) (06/24/2013 9:25 AM SQL APPLICATION DEVELOPER) [facility] gist Method Time Signature Aspartate 26 8 - 43 POWERCHART Aminotransferase UNITL (AST), S Specimen (Source) Anatomical Collection Method Collection Time Re ceived Time Location / / Volume Laterality Blood 06/24/2013 9:25 AM SQL APPLICATION DEVELOPER Naz Hdez M.D. LAB BLOOD ADD-ON Performing Organization Address City/State/ZIP Code Phon e Number POWERCHART Pathology ThinPrep Screen HPV Reflex (06/24/2013 8:52 AM SQL APPLICATION DEVELOPER) [facility] gist Method Time Signature Interpretation [id number] POWERCHART HXThPrep Scrn See Comment POWERCHART [facility] Comment: A. ??ThinPrep Pap Test Screen (Cervical/ Endocervical HPV Reflex): Satisfactory for evaluation. Negative for intraepithelial lesion or m alignancy. HXThPrep Scrn [facility] See Comment RODRIGUE RCHART Comment: Report electronically signed by JB Matos(ASCP) 06/28/2013 09:52 Interpreted by: JB Matos(ASCP) [facility] See Comment POWERCHART Comment: A. ??ThinPrep Pap Test Screen (Cervical/ Endocervical HPV Reflex): Received cloudy specimen in ThinPrep via l. Test Performed by: [place] [address] [employer] Specialist: Henry hoang III, M.D. Specimen (Source) Anatomical Collection Method Collection Time Re ceived Time Location / / Volume Laterality Cervix/Endocervix 06/24/2013 8:52 AM SQL APPLICATION DEVELOPER Naz Hdez M.D. LAB PAP PATHDX ORDERABLES Performing Organization Address City/State/ZIP Code Phon e Number POWERCHART documented in this encounter Visit Diagnoses Not on filedocumented in this encounter Additional Health Concerns Assessment Noted Time PHQ-9 Depression Total Score: 3 11/11/2011 1:33 PM CDT documented as of this encounter
--- OUTSIDE RECORDS SUMMARY | 2021-12-15 01:21 | XMS_ITS | Encounter Summary ---
:1975 Author Organization [facility] Address [address] [place] [address] Care Team Providers Name Role Phone Unavailable Primary Care Provider Unavailable Encounter Details Date Type Department Care Team Description 05/20/2010 Hospital Encounter HX [facility] Jarad Hdez M.D. [address] [place], [place] [address] (Wo rk) Social History Tobacco Use Types Packs/Day Years Used Date Smoking Tobacco: Never Assessed Sex Assigned at Date Recorded Not on file documented as of this encounter Nursing Notes Chandler Younger L.P.NPeyman - 05/31/2010 9:45 AM CST Labs 05-20-10 Result card sent per Dr. Hdez. Electronically Signed By:CHANDLER YOUNGER LPN On 05/31/2010 09:46 am Source: [facility] Document Id: [id number] ANICAL PRODUCT DESIGN ENGINEER Chandler Younger L.P.NPeyman - 05/31/2010 9:45 AM CST Labs 05-20-[address] sent per Dr[address] Hdez. Electronically Signed By:CHANDLER YOUNGER LPN On 05/31/2010 09:46 am Source: [facility] POWERCHART Document Id: [id number] ANICAL PRODUCT DESIGN ENGINEER documented in this encounter Plan of Treatment Not on filedocumented as of this encounter Visit Diagnoses Not on filedocumented in this encounter Additional Health Concerns Assessment Noted Time PHQ-9 Depression Total Score: 3 02/25/2010 12:30 PM CD T documented as of this encounter
--- OUTSIDE RECORDS SUMMARY | 2021-12-15 01:21 | XMS_ITS | Encounter Summary ---
:1975 Author Organization [facility] Address [address] [place] [address] Care Team Providers Name Role Phone Unavailable Primary Care Provider Unavailable Encounter Details Date Type Department Care Team Description 07/28/2012 Hospital Encounter [facility] Jennifer Muñiz M.D. Social History Tobacco Use Types Packs/Day Years Used Date Smoking Tobacco: Never Assessed Sex Assigned at Date Recorded Not on file documented as of this encounter Last Filed Vital Signs Vital Sign Reading Time Taken Comments Blood Pressure 102/50 07/28/2012 11:36 AM CDT Pulse 68 07/28/2012 11:36 AM CDT Temperature - - Respiratory Rate 20 07/28/2012 11:36 AM CDT Oxygen Saturation - - Inhaled Oxygen Concentration - - Weight 97.5 kg (214 lb 15.2 oz) 07/28/2012 11:36 AM CDT Height - - Body Mass Index 37.15 06/28/2012 9:39 AM CUSTOMER SUPPORT TECHNICIAN documented in this encounter Progress Notes Akil Muñiz M.D. - 07/28/2012 11:26 AM CDT [id number] CHIEF COMPLAINT/REASON FOR VISIT Right eye redness. HISTORY OF PRESENT ILLNESS Ms. Santos is a pleasant 36-year-old lady coming in for Same Day Clinic visit regarding right eye redness. She states that she woke up 2 days ago with a scratch over her right eye on the eyelid. She noticed it has been progressively worsening and dry and hot, although she denies any pruritus or [place] pain. She has not tried anything for relief. She denies any new exposures including cosmetics, lotions, soaps or detergent. She denies any pain in the eye, itself. No lesions there, and no vision changes. PHYSICAL EXAM GENERAL: Well-appearing, nontoxic young lady in no acute distress. Alert and oriented x3. EYES: Left eye normal. Pupils equally round and reactive bilaterally. Right eye is anicteric. Conjunctiva clear. There is a red, dry, scaly rash on her right eyelid as well as a little bit on her lowereyelid as well. There is no scaling. No crusting or discharge noted. No periorbital edema. Extraocular movements are intact. Eye, itself, is nontender to palpation and ballotable. IMPRESSION/REPORT/PLAN 1. Periorbital dermatitis. PLAN: I would opt to treat with tacrolimus ointment twice daily for 1 to 2 weeks. I opted to avoid low-dose steroids in this case due to side effects of skin thinning. I cautioned her with the application to avoid the eye, itself. If she has not seen improvement or if there is worsening in her symptoms in the next few days, I encouraged her to call her principal accounts clerk or, if she is unable to be seen there, her primary care physician. The patient vocalized understanding. Akil Muñiz M.D./tonya Electronically Signed By: AKIL MUÑIZ MD On: 08/15/2012 08:04 AM Source: [facility] MHSDOLBEYNONRADSYS Document Id: [id number] documented in this encounter Miscellaneous Notes Miscellaneous - Conversion, Historical Provider Ser - 07/28/2012 11:36 AM CDT Adult Recovery Engineer Intake/History Adult Recovery Engineer Intake/History Entered On: 07/28/2012 11:39 CDT Performed On: 07/28/2012 11:36 CDT by MITCH SCOTT Intake Chief Complaint : Right eye is red sometimes feels like it is burning for 3 days Onset of Symptoms : 3 days Temperature Oral : 36.7DegC(Converted to: 98.1DegF) Peripheral Pulse Rate : 68/min Respiratory Rate : 20/min Systolic Blood Pressure : 102mmHg Diastolic Blood Pressure : 50mmHg (LOW) NIBP Mean : 67mmHg BP Location : Right upper extremity Blood Pressure Cuff Size : Large Actual Weight : 97.5kg(Converted to: 214lb 15oz) Dosing Weight Clinic : 97.50kg MITCH SCOTT - 07/28/2012 11:36 CDT General Info Information Given By : Patient Preferred Communication Mode : Verbal Languages : Frisian MITCH SCOTT - 07/28/2012 11:36 CDT Subjective Pain Symptoms : No MITCH SCOTT 07/28/2012 11:36 CDT Dependent Habits Tobacco Use/Currently Using : No Exposure to Tobacco Smoke : Other: never Smoking Status : Never smoker MITCH SCOTT 07/28/2012 11:36 CDT Caffeine Use Grid Caffeine Use : None MITCH SCOTT 07/28/2012 11:36 CDT Recreational Drug Use Grid Drug Use : None MITCH SCOTT 07/28/2012 11:36 CDT Allergy Allergies (Active) NKA Estimated Onset Date: Unspecified ; Created By: TERRI GIL MD; Reaction Status: Active ; Category: Drug ; Substance: NKA ; Type: Allergy ; Updated By: TERRI GIL MD; Reviewed Date: 11/11/2011 9:08 CDT Source: [employer] Document Id: [id number] Miscellaneous - Conversion, Historical Provider Ser - 07/28/2012 11:36 AM CDT Adult Recovery Engineer Intake/History Adult Recovery Engineer Intake/History Entered On: 07/28/2012 11:39 CDT Performed On: 07/28/2012 11:36 CDT by MITCH SCOTT Intake Chief Complaint : Right eye is red sometimes feels like it is burning for 3 days Onset of Symptoms : 3 days Temperature Oral : 36.7DegC(Converted to: 98.1DegF) Peripheral Pulse Rate : 68/min Respiratory Rate : 20/min Systolic Blood Pressure : 102mmHg Diastolic Blood Pressure : 50mmHg (LOW) NIBP Mean : 67mmHg BP Location : Right upper extremity Blood Pressure Cuff Size : Large Actual Weight : 97.5kg(Converted to: 214lb 15oz) Dosing Weight Clinic : 97.50kg MITCH SCOTT 07/28/2012 11:36 CDT General Info Information Given By : Patient Preferred Communication Mode : Verbal Languages : Frisian MITCH SCOTT 07/28/2012 11:36 CDT Subjective Pain Symptoms : No MITCH SCOTT 07/28/2012 11:36 CDT Dependent Habits Tobacco Use/Currently Using : No Exposure to Tobacco Smoke : Other: never Smoking Status : Never smoker MITCH SCOTT 07/28/2012 11:36 CDT Caffeine Use Grid Caffeine Use : None MITCH SCOTT 07/28/2012 11:36 CDT Recreational Drug Use Grid Drug Use : None MITCH SCOTT 07/28/2012 11:36 CDT Allergy Allergies (Active) NKA Estimated Onset Date: Unspecified ; Created By: TERRI GIL MD; Reaction Status: Active ; Category: Drug ; Substance: NKA ; Type: Allergy ; Updated By: TERRI GIL MD; Reviewed Date: 11/11/2011 9:08 CDT Source: [facility] POWERCHART Document Id: [id number] OMER SUPPORT TECHNICIAN documented in this encounter Plan of Treatment Not on filedocumented as of this encounter Visit Diagnoses Not on filedocumented in this encounter Additional Health Concerns Assessment Noted Time PHQ-9 Depression Total Score: 3 11/11/2011 1:33 PM CDT documented as of this encounter
--- OUTSIDE RECORDS SUMMARY | 2021-12-15 01:21 | XMS_ITS | Encounter Summary ---
:1975 Author Organization [facility] Address [address] [place] [address] Care Team Providers Name Role Phone Unavailable Primary Care Provider Unavailable Encounter Details Date Type Department Care Team Description 04/20/2011 Hospital Encounter HX [facility] Jarad Hdez M.D. [address] [place], [place] [address] (Wo rk) Social History Tobacco Use Types Packs/Day Years Used Date Smoking Tobacco: Never Assessed Sex Assigned at Date Recorded Not on file documented as of this encounter Progress Notes Naz Hdez M.D. - 04/20/2011 12:00 AM CST [id number] CHIEF COMPLAINT/REASON FOR VISIT Annual exam. HISTORY OF PRESENT ILLNESS This 35-year-old female presents to the clinic for annual evaluation. She is generally speaking dong quite well. Is not fasting but would like to be able to present fasting in a couple of weeks. Is working on going to school which leads to some increased psychosocial stress, but her mood is generally speaking doing quite well and her only significant issue is the weight gain. She stopped using OCPs in January and is using condoms for contraception and is undecided in terms of mcc conception issues. Clinic Face Sheet/Medication Sheet are reviewed. Please see the chart. CURRENT MEDICATIONS Post-visit Medication Reconciliation 1. Citalopram 20 mg orally each day 2. Simvastatin 20 mg each day 3. Fexofenadine 180 mg daily as needed. ALLERGIES Environmental but no known drug allergies. SYSTEMS REVIEW Constitutional: Slow weight gain over the years. No fevers, chills or night sweats. No change in her energy. Eyes: No blurred or double vision and no eye pain. Last ophthalmic exam 2009. ENT: No hearing loss, no tinnitus, no ear pain, no dizziness, no nasal congestion, no sore throat and no hoarseness. Dental exams every six months, the last being February 2011. CV: No ankle edema, no true claudication and no chest pain. See the chart. Respiratory: No cough, no wheezing, no hemoptysis and no shortness of breath. GI: No abdominal pain and no heartburn. No problems with dysphagia, hematemesis or change in daily bowel regimen. No hematochezia and no problems with hemorrhoids. : No pain with urination. No urinary frequency. No vaginal bleeding or spotting apart from 4 day monthly menses. Has a few cramps but it is tolerable. No vaginal discharge. No history of abnormal Pap smears. No concerns regarding sexually transmitted diseases. See above. Musculoskeletal: No back, neck or joint pain. No swelling or stiffness. No myalgias or weakness. Integumentary: No changes in skin lesions, hair or nails. Does self breast exams. Does see the sap portal developer on a regular basis, the last being July 2010. Neuro: No history of syncopal events or seizures. Psychiatric: See the chart. Endocrine: No history of thyroid problems. See the chart. Hematologic/lymphatic: No history of anemia or bleeding. Allergic/immunologic: Please see above. PAST MEDICAL/SURGICAL HISTORY 1. Basal cell carcinoma removed from the [...] by dermatology. 5. Impaired fasting glucose in 2009 currently stable. 6. Palpitations. PREVENTIVE SERVICES Tobacco use: None. Mammogram: Non [...] age. SOCIAL HISTORY Alcohol: A few times a year. Other social drugs: None. Caffeine use: Soda four times a week. Seatbelt use: Wears Diet: Tries to follow a healthy diet. See above. Last breast exam: 2009 Calcium intake: Adequate. Exercises at [employer] twice a week. FAMILY HISTORY Mother has hyperlipidemia status-post a NV at age 47. Father status-post melanoma on the face. Maternal grandparents both at age 75. Health history is not clear. Paternal grandmother secondary to ovarian cancer at age 85. Paternal grandfather at age 88 natural causes. 11 out of 12 of her maternal aunts and uncles all have hyperlipidemia and coronary artery disease. A brother in good health and no sisters. Two children in good health. VITAL SIGNS DATE/TIME 04-20-2011 HEIGHT 160.5 cm WEIGHT 99.1 kg TEMPERATURE 36.6 degreesC RESP RATE 16 / min PULSE 76 SYSTOLIC 120 DIASTOLIC 72 PHYSICAL EXAM AREA EXAM TEXT GENERAL Neatly dressed and well groomed and in no apparent distress. SKIN Multiple skin lesions total body in nature with evidence of biopsy sites. No palpable masses. HEAD No trauma, tenderness or masses. EYES Conjunctiva clear. PERRLA. Full EOM. Funduscopic exam grossly normal. ENT ENT: External ears and nose without gross abnormalities. Tympanic membranes are carey. Subjectively intact hearing. Nasal mucosa membranes pink and moist. Septum is midline. Oral: No exudates. Teeth in good repair. No evidence of periodontal disease. No pharyngeal erythema or exudates. Neck supple. Trachea midline. LYMPH NODES Negative evaluation of neck, axilla and groin. THYROID No thyroid masses, tenderness or enlargement. BREASTS Fibrocystic changes but not tender. No galactorrhea. Negative evaluation of the axilla. PERIPHERAL Positive radial, ulnar, femoral, posterior tibial and dorsalis VESSELS pedis pulses. HEART Regular rate and rhythm. No clicks, rubs or murmurs. Carotid arteries reveal no bruits. Abdominal aorta is not prominent. No ankle edema. No varicosities. LUNGS Clear to auscultation. No palpable chest wall masses. ABDOMEN Soft and nontender. Bowel sounds present. No organomegaly. PELVIS No bony abnormalities. RECTUM Patent anus. Good sphincter tone. No hemorrhoids. Hemoccult negative stool in the vault. GENITALIA External genitalia appropriate for stated age. Urethral meatus free from lesions. Supple vaginal vault. Multiparous appearing cervix. Pap smear with spatula and cytobrush obtained with no friability. Uterus freely mobile, no nodularity. Adnexa free from nodules and nontender. No tenderness with either speculum or bimanual exam. SPINE Range of motion consistent with stated age. No bony abnormalities. JOINTS Range of motion consistent with stated age. No bony abnormalities. EXTREMITIES Nails and digits in good condition. Range of motion of head, neck, ribs, right and left upper extremity, right and left lower extremity consistent with the patient's stated age. GAIT Smooth easy. MENTAL Oriented x 3. NEURO Reflexes 2+ in triceps, biceps, knees and ankles. IMPRESSION/REPORT/PLAN 1. Annual exam 2. History of abnormal Pap smear 3. Stable depression with anxiety. 4. History of hyperglycemia. 5. Hyperlipidemia. 6. Overweight 7. History of basal cell skin cancer. PLAN: 1. Reviewed exercise, cholesterol, diet/weight loss, calcium intake, alcohol use, immunizations, tobacco use, caffeine use, self-breast exams, mammography, colonic studies including colonoscopy or hemoccult testing, hormone replacement therapy as appropriate, seatbelt use, back care, depression, eye exams and other issues. Following up if any change occurs or as noted. 2. Follow up the ThinPrep accordingly. Would recommend checking CBC, basic metabolic profile, lipid profile, urinalysis and AST in a couple of weeks when patient is able to present fasting. Signs and symptoms to lead to a more urgent evaluation are reviewed. She is comfortable with this plan and will follow up as noted. JEANETH/david Signed Naz Hdez M.D. Family Medicine Electronically Signed By: NAZ HDEZ MD On: 04/21/2011 12:27 PM Modified by and Electronically Signed by: NAZ HDEZ MD On: 04/21/2011 12:27 PM Source: [facility] MHSDOLBEYNONRADSYS Document Id: [id number] LE ELECTRONICS INSTALLER documented in this encounter Nursing Notes Velia Younger L.P.N. - 04/28/2011 4:14 PM CST labs 04-20-11 Result card sent. Electronically Signed By: VELIA YOUNGER LPN On: 04/28/2011 04:14 PM Source: [employer] Document Id: [id number] LE ELECTRONICS INSTALLER Velia Younger L.P.N. - 04/28/2011 4:14 PM CST labs 04-20-11 Result card sent. Electronically Signed By: VELIA YOUNGER LPN On: 04/28/2011 04:14 PM Source: [employer] Document Id: [id number] LE ELECTRONICS INSTALLER documented in this encounter Miscellaneous Notes Miscellaneous - Naz Hdez M.D. - 04/20/2011 5:53 PM CST PHQ-9 PHQ-9 Entered On: 04/20/2011 17:53 MOBILE ELECTRONICS INSTALLER Performed On: 04/20/2011 17:53 MOBILE ELECTRONICS INSTALLER by NAZ HDEZ MD PHQ-9 Little interest [...] difficult at all NAZ HDEZ MD - 04/20/2011 17:53 MOBILE ELECTRONICS INSTALLER Source: [facility] [employer] Document Id: [id number] MOBILE ELECTRONICS INSTALLER!13 LE ELECTRONICS INSTALLER Miscellaneous - Naz Hdez M.D. - 04/20/2011 5:53 PM CST PHQ-9 PHQ-9 Entered On: 04/20/2011 17:53 MOBILE ELECTRONICS INSTALLER Performed On: 04/20/2011 17:53 MOBILE ELECTRONICS INSTALLER by NAZ HDEZ MD PHQ-9 Little interest [...] difficult at all NAZ HDEZ MD - 04/20/2011 17:53 MOBILE ELECTRONICS INSTALLER Source: [facility] POWERCHART Document Id: [id number] MOBILE ELECTRONICS INSTALLER!13 LE ELECTRONICS INSTALLER Miscellaneous - Naz Hdez M.D. - 04/20/2011 5:52 PM CST Ambulatory Patient Summary [address] [address] Visit Information Name: JANA DUMONT Current Date: 04/20/2011 17:52:45 Primary Care Provider: NAZ HDEZ MD Your Medications Here is a list of your medications. It is important to take your medications as directed. Use a pillbox or chart to help remind you to take your medications. Please let your doctor or nurse know if you have problems taking your medications. Medication/Strength Dose Route Frequency Indications/Special Instructions/Comments azithromycin (Azithromycin 5 Day Dose Pack 250 mg oral tablet) 2 tablets on day 1, then 1 tablet on days 2-5 Oral as directed for 5 Days citalopram (citalopram 20 mg oral tablet) 20 [...] Active 06/23/2008 Abnormal Pap Active 05/22/1996 colposcopy Your Recommendations We want to make sure [...] Additional Information Depression: PHQ-9 every 6 months 02/25/2010 08/27/2010 Health Assessment every 1 year 04/20/2011 04/19/2012 Vaccine: Tetanus every 10 years 05/03/2010 04/30/2020 Immunization to help prevent you from getting the serious disease Tetanus (Lockjaw). Your Upcoming Appointments Date Time Location Reason Provider 05/04/2011 08:[address] [facility] Lab Your Goals/Additional instructions: Source: [facility] POWERCHART Document Id: [id number] LE ELECTRONICS INSTALLER Miscellaneous - Naz Hdez M.D. - 04/20/2011 5:52 PM CST Ambulatory Patient Summary [address] [address] Visit Information Name: JANA DUMONT Current Date: 04/20/2011 17:52:45 Primary Care Provider: NAZ HDEZ MD Your Medications Here is a list of your medications. It is important to take your medications as directed. Use a pillbox or chart to help remind you to take your medications. Please let your doctor or nurse know if you have problems taking your medications. Medication/Strength Dose Route Frequency Indications/Special Instructions/Comments azithromycin (Azithromycin 5 Day Dose Pack 250 mg oral tablet) 2 tablets on day 1, then 1 tablet on days 2-5 Oral as directed for 5 Days citalopram (citalopram 20 mg oral tablet) 20 [...] Active 06/23/2008 Abnormal Pap Active 05/22/1996 colposcopy Your Recommendations We want to make sure [...] Additional Information Depression: PHQ-9 every 6 months 02/25/2010 08/27/2010 Health Assessment every 1 year 04/20/2011 04/19/2012 Vaccine: Tetanus every 10 years 05/03/2010 04/30/2020 Immunization to help prevent you from getting the serious disease Tetanus (Lockjaw). Your Upcoming Appointments Date Time Location Reason Provider 05/04/2011 08:[address] [facility] Lab Your Goals/Additional instructions: Source: [facility] POWERCHART Document Id: [id number] N [place] - Naz Hdez M.D. - 04/20/2011 5:52 PM CST Ambulatory Depart Summary [address] [address] Visit Information Name: JANA DUMONT EMERSON Current Date: 04/20/2011 17:52:44 Physicians Attending Physician: NAZ HDEZ MD Primary Care Provider: NAZ [...] medications. Medication/Strength Dose Route Frequency Indications/Special Instructions/Comments azithromycin (Azithromycin 5 Day Dose Pack 250 mg oral tablet) 2 tablets on day 1, then 1 tablet on days 2-5 Oral as directed for 5 Days citalopram (citalopram 20 mg oral tablet) 20 mg Oral once a day needs follow up loratadine (loratadine 10 mg oral tablet) 10 mg Oral once a day simvastatin (simvastatin 20 mg oral tablet) 20 mg Oral once a day (at bedtime) Additional Information: Source: [facility] shoplyCHART Document Id: [id number] N [place] - Naz Hdez M.D. - 04/20/2011 5:52 PM CST Ambulatory Depart Summary [address] [address] Visit Information Name: JANA DUMONT Current Date: 04/20/2011 17:52:44 Physicians Attending Physician: NAZ HDEZ MD Primary Care Provider: NAZ [...] medications. Medication/Strength Dose Route Frequency Indications/Special Instructions/Comments azithromycin (Azithromycin 5 Day Dose Pack 250 mg oral tablet) 2 tablets on day 1, then 1 tablet on days 2-5 Oral as directed for 5 Days citalopram (citalopram 20 mg oral tablet) 20 mg Oral once a day needs follow up loratadine (loratadine 10 mg oral tablet) 10 mg Oral once a day simvastatin (simvastatin 20 mg oral tablet) 20 mg Oral once a day (at bedtime) Additional Information: Source: [facility] POWERCHART Document Id: [id number] LE ELECTRONICS INSTALLER Miscellaneous - Velia Younger L.P.N. - 04/20/2011 1:43 PM CST Adult Control Supervisor Intake/History Adult Control Supervisor Intake/History Entered On: 04/20/2011 13:46 MOBILE ELECTRONICS INSTALLER Performed On: 04/20/2011 13:43 MOBILE ELECTRONICS INSTALLER by VELIA YOUNGER LPN Intake Chief Complaint : physical Temperature Core : 36.6C(Converted to: 97.9DegF) Peripheral Pulse Rate : 76/min Respiratory Rate : 76/min (>HHI) Systolic Blood Pressure : 120mmHg Diastolic Blood Pressure : 72mmHg NIBP Mean : 88mmHg BP Location : Left upper extremity Blood Pressure Cuff Size : Regular Height : 160.5cm(Converted to: 5ft 3inch(es)) Actual Weight : 99.1kg(Converted to: 218lb 8oz) Dosing Weight Clinic : 99.10kg Clinic BSA : 2.10 Body Mass Index : 38.47kg/m2 VELIA YOUNGER LPN - 04/20/2011 13:43 MOBILE ELECTRONICS INSTALLER Subjective Pain Symptoms : No VELIA YOUNGER LPN - 04/20/2011 13:43 MOBILE ELECTRONICS INSTALLER Dependent Habits Tobacco Use/Currently Using : No Smoking Status : Never smoker VELIA YOUNGER LPN - 04/20/2011 13:43 MOBILE ELECTRONICS INSTALLER Allergy Allergies (Active) NKA Estimated Onset Date: Unspecified ; Created By: NAZ HDEZ MD; Reaction Status: Active ; Category: Drug ; Substance: NKA ; Type: Allergy ; Updated By: NAZ HDEZ MD; Reviewed Date: 04/20/2011 13:43 MOBILE ELECTRONICS INSTALLER Source: [employer] Document Id: [id number] MOBILE ELECTRONICS INSTALLER!21 LE ELECTRONICS INSTALLER Miscellaneous - Velia Younger L.P.N. - 04/20/2011 1:43 PM CST Health Assessment Health Assessment Entered On: 04/20/2011 13:47 MOBILE ELECTRONICS INSTALLER Performed On: 04/20/2011 13:43 MOBILE ELECTRONICS INSTALLER by VELIA YOUNGER LPN Health Assessment Complete Health Assessment Complete or Modified : Annual Health Assessment Annual Health Assessment Completed : Yes VELIA YOUNGER LPN - 04/20/2011 13:43 MOBILE ELECTRONICS INSTALLER Nutrition Nutrition Risk Factors by History Adult : None VELIA YOUNGER LPN - 04/20/2011 13:43 MOBILE ELECTRONICS INSTALLER Functional Current Daily Living Assistance : None VELIA YOUNGER LPN - 04/20/2011 13:43 MOBILE ELECTRONICS INSTALLER Dependent Habits Tobacco Use/Currently Using : No Smoking Status : Never smoker VELIA YOUNGER LPN - 04/20/2011 13:43 MOBILE ELECTRONICS INSTALLER Psychosocial Domestic Abuse Concerns : None VELIA YOUNGER LPN - 04/20/2011 13:43 MOBILE ELECTRONICS INSTALLER Advance Directive Advanced Directives : No VELIA YOUNGER LPN - 04/20/2011 13:43 MOBILE ELECTRONICS INSTALLER Educ Needs Learning Style Preference Adult Grid Patient : Printed materials Family : Printed materials VELIA YOUNGER LPN - 04/20/2011 13:43 MOBILE ELECTRONICS INSTALLER Source: [employer] Document Id: [id number] MOBILE ELECTRONICS INSTALLER!19 LE ELECTRONICS INSTALLER Miscellaneous - Velia Younger L.PPeymanNPeyman - 04/20/2011 1:43 PM CST Adult Control Supervisor Intake/History Adult Control Supervisor Intake/History Entered On: 04/20/2011 13:46 MOBILE ELECTRONICS INSTALLER Performed On: 04/20/2011 13:43 MOBILE ELECTRONICS INSTALLER by VELIA YOUNGER LPN Intake Chief Complaint : physical Temperature Core : 36.6C(Converted to: 97.9DegF) Peripheral Pulse Rate : 76/min Respiratory Rate : 76/min (>HHI) Systolic Blood Pressure : 120mmHg Diastolic Blood Pressure : 72mmHg NIBP Mean : 88mmHg BP Location : Left upper extremity Blood Pressure Cuff Size : Regular Height : 160.5cm(Converted to: 5ft 3inch(es)) Actual Weight : 99.1kg(Converted to: 218lb 8oz) Dosing Weight Clinic : 99.10kg Clinic BSA : 2.10 Body Mass Index : 38.47kg/m2 VELIA YOUNGER LPN - 04/20/2011 13:43 MOBILE ELECTRONICS INSTALLER Subjective Pain Symptoms : No VELIA YOUNGER LPN - 04/20/2011 13:43 MOBILE ELECTRONICS INSTALLER Dependent Habits Tobacco Use/Currently Using : No Smoking Status : Never smoker VELIA YOUNGER LPN - 04/20/2011 13:43 MOBILE ELECTRONICS INSTALLER Allergy Allergies (Active) NKA Estimated Onset Date: Unspecified ; Created By: NAZ HDEZ MD; Reaction Status: Active ; Category: Drug ; Substance: NKA ; Type: Allergy ; Updated By: NAZ HDEZ MD; Reviewed Date: 04/20/2011 13:43 MOBILE ELECTRONICS INSTALLER Source: [facility] POWERCHART Document Id: [id number] MOBILE ELECTRONICS INSTALLER!21 LE ELECTRONICS INSTALLER Miscellaneous - Velia Younger L.P.NPeyman - 04/20/2011 1:43 PM CST Health Assessment Health Assessment Entered On: 04/20/2011 13:47 MOBILE ELECTRONICS INSTALLER Performed On: 04/20/2011 13:43 MOBILE ELECTRONICS INSTALLER by VELIA YOUNGER LPN Health Assessment Complete Health Assessment Complete or Modified : Annual Health Assessment Annual Health Assessment Completed : Yes VELIA YOUNGER PACO - 04/20/2011 13:43 MOBILE ELECTRONICS INSTALLER Nutrition Nutrition Risk Factors by History Adult : None VELIA YOUNGER PACO - 04/20/2011 13:43 MOBILE ELECTRONICS INSTALLER Functional Current Daily Living Assistance : None VELIA YOUNGER PACO - 04/20/2011 13:43 MOBILE ELECTRONICS INSTALLER Dependent Habits Tobacco Use/Currently Using : No Smoking Status : Never smoker VELIA YOUNGER PACO - 04/20/2011 13:43 MOBILE ELECTRONICS INSTALLER Psychosocial Domestic Abuse Concerns : None VELIA YOUNGERMaryse ANTONIO - 04/20/2011 13:43 MOBILE ELECTRONICS INSTALLER Advance Directive Advanced Directives : No VELIA YOUNGER PACO - 04/20/2011 13:43 MOBILE ELECTRONICS INSTALLER Educ Needs Learning Style Preference Adult Grid Patient : Printed materials Family : Printed materials VELIA YOUNGERaMryse ANTONIO - 04/20/2011 13:43 MOBILE ELECTRONICS INSTALLER Source: [facility] POWERCHART Document Id: [id number] MOBILE ELECTRONICS INSTALLER!19 LE ELECTRONICS INSTALLER documented in this encounter Plan of Treatment Not on filedocumented as of this encounter Procedures Procedure Name Priority Date/Time Associated Diagnosis Comme nts HXPHYS INTERP OF Routine 04/20/2011 4:10 PM Resul ts for this THIN PREP, PAP MOBILE ELECTRONICS INSTALLER procedure are in the results section. THINPREP SCREEN HPV Routine 04/20/2011 4:10 PM Re sults for this REFLEX MOBILE ELECTRONICS INSTALLER procedure are i n the results section. documented in this encounter Results HX Hx phys Interp of Thin Prep, Pap (04/20/2011 4:10 PM MOBILE ELECTRONICS INSTALLER) [facility] gist Method Time Signature Interpretation Performed POWERCHART Comment: Test Performed by: [facility] Dpt of Lab Med and Pathology [address] [place] [id number] Dealer Relationship Manager: Henry hoang III, M.D. Specimen Anatomical Collection Method Collection Time Receive d Time (Source) Location / / Volume Laterality Cervix/Endocervi 04/20/2011 4:10 PM 04/22 x MOBILE ELECTRONICS INSTALLER 12:10 PM MOBILE ELECTRONICS INSTALLER Historical Provider LAB HISTORICAL ORDERS Performing Organization Address [facility] Phon e Number POWERCHART ThinPrep Screen HPV Reflex (04/20/2011 4:10 PM MOBILE ELECTRONICS INSTALLER) [facility] Method Time Signature Interpretation [id number] POWERCHART HXThPrep Scrn See Comment POWERCHART [facility] Comment: A. ??ThinPrep Pap Test Screen (Cervical/ Endocervical HPV Reflex): Satisfactory for evaluation. Negative for intraepithelial lesion or m alignancy. Reactive glandular cells present. HXThPrep Scrn [facility]to[facility] See Comment [facility] Comment: RESULT: Jihantiffanie Mchugh, SCT ( ASCP) [facility] RCHART Comment: RESULT: 04/28/2011 13:42 Interpreted by: Alyssa Barillas M.D. Report electronically signed by Alyssa helton M.D. Transcribed by: [facility] ??04/28/2011 11:44: 13 HX Spec Desc-[place] See Comment POWERCHART Comment: A. ??ThinPrep Pap Test Screen (Cervical/ Endocervical HPV Reflex): Received cloudy specimen in ThinPrep via l. Test Performed by: [facility] Dpt of Lab Med and Pathology [address] [place] [address] Dealer Relationship Manager: Henry hoang III, M.D. Specimen (Source) Anatomical Collection Method Collection Time Re ceived Time Location / / Volume Laterality Cervix/Endocervix 04/20/2011 4:10 PM MOBILE ELECTRONICS INSTALLER Naz Hdez M.D. LAB PAP PATHDX ORDERABLES Performing Organization Address [facility] Phon e Number POWERCHART documented in this encounter Visit Diagnoses Not on filedocumented in this encounter Additional Health Concerns Assessment Noted Time PHQ-9 Depression Total Score: 3 04/20/2011 5:53 PM MOBILE ELECTRONICS INSTALLER documented as of this encounter
--- OUTSIDE RECORDS SUMMARY | 2021-12-15 01:21 | XMS_ITS | Encounter Summary ---
:[address] [facility] Address [address] [place] [address] Care Team Providers Name Role Phone Unavailable Primary Care Provider Unavailable Encounter Details Date Type Department Care Team Description 01/28/2010 Hospital Encounter HX [facility] Jarad Hdez M.D. [address] [place], [place] [phone] (Wo rk) Social History Tobacco Use Types Packs/Day Years Used Date Smoking Tobacco: Never Assessed Sex Assigned at Date Recorded Not on file documented as of this encounter H&P Notes Naz Hdez M.D. - 01/28/2010 12:00 AM CDT [id number] IMPRESSION/REPORT/PLAN 1. Annual exam 2. History of abnormal Pap smears, but not since 1996. 3. Anxiety with depression. 4. History of hyperglycemia. 5. Hyperlipidemia. 6. Contraception PLAN 1. Reviewed exercise, cholesterol, diet/weight loss, calcium intake, alcohol use, immunizations, tobacco use, caffeine use, self-breast exams, mammography, colonic studies including colonoscopy or hemoccult testing, hormone replacement therapy as appropriate, seatbelt use, back care, depression, eye exams and other issues. Following up if any change occurs or as noted. 2. Risks and benefits of medications discussed. All questions answered. Signs and symptoms to lead to a more urgent evaluation are reviewed. Follow up in about one month. Will check laboratory evaluation with CBC, urinalysis, TSH, lipid profile, basic metabolic profile and AST following up accordingly. Follow up ThinPrep accordingly. Signs and symptoms to lead to a more urgent evaluation are reviewed. Patient is comfortable with this plan. CHIEF COMPLAINT/REASON FOR VISIT Annual exam. HISTORY OF PRESENT ILLNESS This 34-year-old female presents to the clinic for annual evaluation. Is feeling like her anxiety is becoming worse and it is interrupting her activities of daily living. Is working outside the home going to school as well as being a and a mother. Has tried to increase her exercise which has been somewhat helpful. Her sleep initiation is stable but her maintenance is poor. She after discussion is interested in considering medications. She is quite happy with her control pill and would like to have refills. She is fasting. She is trying to follow a low cholesterol, high fiber diet as much as possible. Clinic Face Sheet/Medication Sheet are reviewed. Please see the chart. CURRENT MEDICATIONS Post-visit Medication Reconciliation 1. Simvastatin 20 mg PO each day 2. Fish oil each day 3. Metamucil episodic use 4. Chen 180 mg daily but not for some time 5. History of Zoloft self discontinued year or so ago 6. Citalopram 20 mg orally each day 7. Ocella OCPs orally each day. ALLERGIES No known drug allergies SYSTEMS REVIEW Constitutional: Slow weight gain over the years. No fevers, chills or night sweats. No change in her energy. Eyes: No blurred or double vision and no eye pain. Last ophthalmic exam 2006. ENT: No hearing loss, no tinnitus, no ear pain, no dizziness, no nasal congestion, no sore throat and no hoarseness. Last dental exam July of 2009. Goes every six months and has an appointment coming up next week. CV: No palpitations, no ankle edema, no true [...] No vaginal bleeding or spotting apart from 2 day monthly menses. No vaginal discharge. No history of abnormal Pap smears. No concerns regarding sexually transmitted diseases. Musculoskeletal: No back, neck or joint pain. No swelling or stiffness. No myalgias or weakness. Integumentary: No changes in skin lesions, hair or nails. Does self breast exams wears sunscreen. 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 See the chart. Neuro: No history of syncopal events or seizures. Psychiatric: See above. Endocrine: No history of thyroid problems. See above. Hematologic/lymphatic: No history of anemia or bleeding. Allergic/immunologic: Please see above. PAST MEDICAL/SURGICAL HISTORY Surgeries: 1. Basal cell carcinoma removed from the right breast and other areas on her body 2004. Last dermatology appointment being 2008. 2. Colposcopy secondary to abnormal Pap smear with no recurrence 1996. Other hospitalizations: vaginal delivery Other injuries: None Other major illnesses: 1. Premenstrual syndrome 2. Depression 3. Anxiety disorder 4. Hyperlipidemia 5. Obesity 6. History of basal cell carcinoma 7. Impaired fasting glucose 06-23-08 PREVENTIVE SERVICES Tobacco: None. Mammogram: Nonapplicable secondary to stated age. Pap smear: 01-28-2010 Chlamydia: Nonapplicable secondary to stated age. Colon screening: Nonapplicable secondary to stated age. Depression: Yes but PHQ-9 score 15 at the present time. Asthma: No. Lipids: 01-28-2010 Tetanus: 01-19-2000 Pneumovax: Nonapplicable secondary to stated age. Influenza vaccine: Nonapplicable secondary to time of year. SOCIAL HISTORY Alcohol: A couple times per year. Other social drugs: none. Caffeine use: Diet Pepsi four times a week. Seatbelt use: Wears a seatbelt. Diet: Tries to follow healthy diet see above. Last breast exam: 2008. Calcium intake: adequate. Exercise: Daily with walking. FAMILY HISTORY Mother has hyperlipidemia status-post a [place] at age 47. Father status-post melanoma on [...] children in good health. VITAL SIGNS DATE/TIME 01-28-2010 HEIGHT 161 cm WEIGHT 88 kg TEMPERATURE 36.9 degreesC RESP RATE 16 / min PULSE 76 SYSTOLIC 124 DIASTOLIC 70 PHYSICAL EXAM AREA EXAM TEXT GENERAL Neatly dressed and well groomed and in no apparent distress. SKIN Solar changes with a large number of moles and nevi. Total body involvement with numerous scars. No palpable masses. HEAD No trauma, tenderness [...] No thyroid masses, tenderness or enlargement. BREASTS No masses or tenderness. No galactorrhea. Negative evaluation of the axilla. [...] abnormalities. RECTUM Patent anus. Good sphincter tone. Some superficial hemorrhoids but no evidence of thrombosis. Hemoccult negative stool in the vault. GENITALIA [...] patient's stated age. GAIT Smooth easy. MENTAL Speech is of normal rate and volume, articulate, coherent, spontaneous with no notation of abnormalities. Thought processes reveal intact abstract reasoning and computation. No loose tangential circumstantial thoughts. No hallucinations. No delusions. No preoccupation with violence. No homicidal or suicidal ideations. Marked psychosocial somatic ruminations. Gaining insight into situation and illness process. Oriented to person, place and time. Recent and remote memory are intact. Attention span and concentration are decreased. Language and fund of knowledge suggest average intellect. Mood and affect reflect evidence of depression, anxiety, no agitation, hypomania some emotional lability. NEURO Reflexes 2+ in triceps, biceps, knees and ankles. [facility]/kmk Signed Naz Hdez M.D. Family Medicine Electronically Signed By:NAZ HDEZ MD On 02/08/2010 07:13 pm Modified by:NAZ HDEZ MD On 02/08/2010 07:13 pm Source: [facility] MHSDOLBEYNONRADSYS Document Id: [id number] documented in this encounter Nursing Notes Chandler Younger L.P.N. - 02/08/2010 6:03 PM CDT Labs 01-28-10 Result card sent per Dr. Hdez. Electronically Signed By:CHANDLER YOUNGER LPN On 02/08/2010 06:03 pm [facility] Document Id: [id number] Chandler Younger L.P.N. - 02/08/2010 6:03 PM CDT Labs 01-28-10 Result card sent per Dr. Hdez. Electronically Signed By:CHANDLER YOUNGER LPN On 02/08/2010 06:03 pm [facility] Document Id: [id number] documented in this encounter Miscellaneous Notes Miscellaneous - Naz Hdez M.D. - 01/28/2010 12:36 PM CDT PHQ-9 PHQ-9 Entered On: 01/28/2010 12:37 CDT Performed On: 01/28/2010 12:36 CDT by NAZ HDEZ MD PHQ-9 Little interest or pleasure in doing things: Several days Feeling down, depressed, or hopeless: Several days Trouble falling or staying asleep, or sleeping too much: Nearly every day Feeling tired or having little energy: More than half the days Poor appetite or overeating: Nearly every day Feeling bad about yourself or that you are a failure: Several days Trouble concentrating on things: More than half the days Moving or speaking slowly; restless or fidgety: More than half the days Thoughts that you would be better off /hurting self: Not at all PHQ-9 Calculated Score: 15 PHQ-9 Date Completed: 01/28/2010 CDT Problems make work, home, or dealing with others: Somewhat difficult NAZ HDEZ MD - 01/28/2010 12:36 CDT Source: [facility] Document Id: [id number] CDT!14 Miscellaneous - Naz Hdez M.D. - 01/28/2010 12:36 PM CDT PHQ-9 PHQ-9 Entered On: 01/28/2010 12:37 CDT Performed On: 01/28/2010 12:36 CDT by NAZ HDEZ MD PHQ-9 Little interest or pleasure in doing things: Several days Feeling down, depressed, or hopeless: Several days Trouble falling or staying asleep, or sleeping too much: Nearly every day Feeling tired or having little energy: More than half the days Poor appetite or overeating: Nearly every day Feeling bad about yourself or that you are a failure: Several days Trouble concentrating on things: More than half the days Moving or speaking slowly; restless or fidgety: More than half the days Thoughts that you would be better off /hurting self: Not at all PHQ-9 Calculated Score: 15 PHQ-9 Date Completed: 01/28/2010 CDT Problems make work, home, or dealing with others: Somewhat difficult NAZ HDEZ MD - 01/28/2010 12:36 CDT Source: [facility] Document Id: [id number] CDT!14 Miscellaneous - Chandler Younger LPeymanP.N. 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 Spiral Runner Intake/History Adult Spiral Runner Intake/History Entered On: 01/28/2010 8:37 CDT Performed On: 01/28/2010 8:33 CDT by CHANDLER YOUNGER LPN Intake Chief Complaint: physical Temperature Core: 36.9C(Converted to: 98.4DegF) Peripheral Pulse Rate: 76/min Respiratory Rate: 16/min Systolic Blood Pressure: 124mmHg Diastolic Blood Pressure: 70mmHg NIBP Mean: 88mmHg BP Location: Left upper extremity Height: 161.00cm(Converted to: 5ft 3in, 63.39in) Actual Weight: 88.000kg(Converted to: 194lb 0oz) Dosing Weight Clinic: 88.00kg Clinic BSA: 1.98 Body Mass Index: 34kg/m2 CHANDLER YOUNGER LPN - 01/28/2010 8:33 CDT Subjective Pain Symptoms: No CHANDLER YOUNGER LPN - 01/28/2010 8:33 CDT Dependent Habits Tobacco Use/Currently Using: No CHANDLER YOUNGER LPN - 01/28/2010 8:33 CDT Allergies Allergies (Active) NKA Estimated Onset Date: Unspecified ; Created By: NAZ HDEZ MD; Reaction Status: Active ; Category: Drug ; Substance: NKA ; Type: Allergy ; Updated By: NAZ HDEZ MD; Reviewed Date: 01/27/2010 18:03 CDT Source: [facility] Document Id: [id number] CDT!19 Miscellaneous - Chandler Younger L.P.N. 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 Spiral Runner Intake/History Adult Spiral Runner Intake/History Entered On: 01/28/2010 8:37 CDT Performed On: 01/28/2010 8:33 CDT by CHANDLER YOUNGER LPN Intake Chief Complaint: physical Temperature Core: 36.9C(Converted to: 98.4DegF) Peripheral Pulse Rate: 76/min Respiratory Rate: 16/min Systolic Blood Pressure: 124mmHg Diastolic Blood Pressure: 70mmHg NIBP Mean: 88mmHg BP Location: Left upper extremity Height: 161.00cm(Converted to: 5ft 3in, 63.39in) Actual Weight: 88.000kg(Converted to: 194lb 0oz) Dosing Weight Clinic: 88.00kg Clinic BSA: 1.98 Body Mass Index: 34kg/m2 CHANDLER YOUNGER LPN - 01/28/2010 8:33 CDT Subjective Pain Symptoms: No CHANDLER YOUNGER LPN - 01/28/2010 8:33 CDT Dependent Habits Tobacco Use/Currently Using: No CHANDLER YOUNGER LPN - 01/28/2010 8:33 CDT Allergies Allergies (Active) NKA Estimated Onset Date: Unspecified ; Created By: NAZ HDEZ MD; Reaction Status: Active ; Category: Drug ; Substance: NKA ; Type: Allergy ; Updated By: NAZ HDEZ MD; Reviewed Date: 01/27/2010 18:03 CDT Source: [facility] POWERCHART Document Id: [id number] CDT!19 documented in this encounter Plan of Treatment Not on filedocumented as of this encounter Procedures Procedure Name Priority Date/Time Associated Diagnosis Comme nts THINPREP SCREEN HPV Routine 01/28/2010 9:57 AM Re sults for this REFLEX CDT procedure are i n the results section. documented in this encounter Results ThinPrep Screen HPV Reflex (01/28/2010 9:57 AM CDT) [facility] Method Time Signature Interpretation [id number] POWERCHART HXThPrep Scrn See Comment POWERCHART [facility] Comment: A. ??ThinPrep Pap Test Screen (Cervical/ Endocervical HPV Reflex): Satisfactory for evaluation. Negative for intraepithelial lesion or m alignancy. Screened at [facility] [address] [place] [address] HXThPrep Scrn [facility] See Comment RODRIGUE OLSON Comment: Report electronically signed by JB Morel(ASCP) 02/02/2010 14:30 Interpreted by: JB Peralta(ASCP) [facility] See Comment POWERCHART Comment: A. ??ThinPrep Pap Test Screen (Cervical/ Endocervical HPV Reflex): Received cloudy specimen in ThinPrep via l. Test Performed by: [facility]ology [address] [place] [id number] Betting Clerk: Henry hoang III, M.D. Specimen (Source) Anatomical Collection Method Collection Time Re ceived Time Location / / Volume Laterality Cervix/Endocervix 01/28/2010 9:57 AM CDT Naz Hdez M.D. LAB PAP PATHDX ORDERABLES Performing Organization Address City/State/ZIP Code Phon e Number POWERCHART documented in this encounter Visit Diagnoses Not on filedocumented in this encounter Additional Health Concerns Assessment Noted Time PHQ-9 Depression Total Score: 15 01/28/2010 12:36 PM C DT documented as of this encounter
--- OUTSIDE RECORDS SUMMARY | 2021-12-15 01:21 | XMS_ITS | Encounter Summary ---
:1975 Author Organization [facility] Address [address] [place] [address] Care Team Providers Name Role Phone Unavailable Primary Care Provider Unavailable Encounter Details Date Type Department Care Team Description 05/04/2011 Hospital Encounter HX [facility] Jarad Hdez M.D. 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
--- OUTSIDE RECORDS SUMMARY | 2021-12-15 01:21 | XMS_ITS | Encounter Summary ---
:1975 Author Organization [facility] Address [address] [place] [address] Care Team Providers Name Role Phone Unavailable Primary Care Provider Unavailable Encounter Details Date Type Department Care Team Description 02/10/2013 Hospital Encounter HX [facility] Mynor Campbell M.D. [address] [place], [place] [address] (Wo rk) Social History Tobacco Use Types Packs/Day Years Used Date Smoking Tobacco: Never Assessed Sex Assigned at Date Recorded Not on file documented as of this encounter Last Filed Vital Signs Vital Sign Reading Time Taken Comments Blood Pressure 130/80 02/10/2013 12:07 PM CDT Pulse 72 02/10/2013 12:07 PM CDT Temperature - - Respiratory Rate 12 02/10/2013 12:07 PM CDT Oxygen Saturation - - Inhaled Oxygen Concentration - - Weight 93.9 kg (207 lb 0.2 oz) 02/10/2013 12:07 PM CDT Height - - Body Mass Index 35.78 06/28/2012 9:39 AM [employer] documented in this encounter Progress Notes Lisa Campbell M.D. - 02/10/2013 12:00 PM CDT [id number] CHIEF COMPLAINT / REASON FOR VISIT Sinus congestion x3 weeks. HISTORY OF PRESENT ILLNESS Ms. Dumont is a 37-year-old white female who has had 3 weeks of URI symptoms, turning into more focal facial pain over the maxillary sinuses in the past few days. She has about 2 sinus infections per year. She has been trying not to come in but now that she has had 3 weeks, we did discuss that she meetscriteria for a trial of treatment. She also is going to be doing some flying, as she is taking her family to [place] within the next week on vacation. MEDICATIONS Please see today's [facility] EMR. ALLERGIES Please see today's [facility] EMR. VITAL SIGNS Please see today's [facility] EMR. PHYSICAL EXAMINATION GENERAL APPEARANCE: Well appearing woman in obvious distress. Some mild congestion is noted in her voice. TMs are negative. Oropharynx with clear PND currently. NECK: Nodes are negative. She is not having cough. IMPRESSION / REPORT / PLAN Acute sinusitis meeting criteria for treatment based on duration. PLAN: Augmentin 875 one tablet twice daily for 10 days. Mucinex. Hot packs to face. Analgesics. Recommended eustachian tube exercises both taking off and landing, both directions on the flight. Pain medications with her since the pressure changes may give her some sinus pain. Follow up as needed for no nresolution or new issues. Lisa Campbell M.D./john Electronically Signed By: LISA CAMPBELL MD On: 02/13/2013 08:20 AM Source: [facility] [email or web address] Document Id: [id number] documented in this encounter Miscellaneous Notes Miscellaneous - Lisa Campbell M.D. - 02/10/2013 12:47 PM CDT Ambulatory Patient Summary [address] [address] Visit Information Name: JANA DUMONT [facility] Number: [id number] Current Date: 02/10/2013 12:47:00 Physicians Attending Provider: LISA CAMPBELL MD Primary Care Provider: TERRI GIL MD Your Medications Here is a list of your medications. It is important to take your medications as directed. Use a pillbox or chart to help remind you to take your medications. Please let your doctor or nurse know if you have problems taking your medications. Medication/Strength Dose Route Frequency Indications/Special Instructions/Comments/Notes amoxicillin-clavulanate (Augmentin 875 mg-125 mg oral tablet) 1 tab(s) Oral two times a day for 10 Days loratadine (loratadine 10 mg oral tablet) 10 mg Oral once a day simvastatin (simvastatin 20 mg oral tablet) 20 mg Oral once a day (at bedtime) needs follow up *oxybutynin (Ditropan 5 mg oral tablet) See Instructions 1 tab PO TID as needed for leakage * You have let us know that you are not taking this medication as listed. Please talk with your primary care provider or the health care provider who prescribed the medication as soon as possible. Attention: If you have any medications at [...] Appointments found Your Goals/Additional instructions: Source: [facility] POWERCHART Document Id: [id number] Miscellaneous - Lisa Campbell M.D. - 02/10/2013 12:47 PM CDT Ambulatory Patient Summary [facility] [address] [place] [id number] Visit Information Name: JANA DUMONT [facility] Number: [id number] Current Date: 02/10/2013 12:47:00 Physicians Attending Provider: LISA CAMPBELL MD Primary Care Provider: TERRI GIL MD Your Medications Here is a list of your medications. It is important to take your medications as directed. Use a pillbox or chart to help remind you to take your medications. Please let your doctor or nurse know if you have problems taking your medications. Medication/Strength Dose Route Frequency Indications/Special Instructions/Comments/Notes amoxicillin-clavulanate (Augmentin 875 mg-125 mg oral tablet) 1 tab(s) Oral two times a day for 10 Days loratadine (loratadine 10 mg oral tablet) 10 mg Oral once a day simvastatin (simvastatin 20 mg oral tablet) 20 mg Oral once a day (at bedtime) needs follow up *oxybutynin (Ditropan 5 mg oral tablet) See Instructions 1 tab PO TID as needed for leakage * You have let us know that you are not taking this medication as listed. Please talk with your primary care provider or the health care provider who prescribed the medication as soon as possible. Attention: If you have any medications at [...] Appointments found Your Goals/Additional instructions: Source: [facility] POWERCHART Document Id: [id number] Miscellaneous - Lisa Campbell M.D. - 02/10/2013 12:46 PM CDT Ambulatory Depart Summary [address] [address] Visit Information Name: JANA DUMONT [facility] Number: [id number] Visit Date: 02/10/2013 12:46:59 Attending Provider: LISA CAMPBELL MD Primary Care Provider: TERRI GIL MD JANA DUMONT has been given the following list of medications: Your Medications It is important to take your medications as directed. Use a pill box or chart to help remind you to take your medications. Please let your doctor or nurse know if you have problems taking your medications. Medication/Strength Dose Route Frequency Indications/Special Instructions/Comments/Notes amoxicillin-clavulanate (Augmentin 875 mg-125 mg oral tablet) 1 tab(s) Oral two times a day for 10 Days loratadine (loratadine 10 mg oral tablet) 10 mg Oral once a day simvastatin (simvastatin 20 mg oral tablet) 20 mg Oral once a day (at bedtime) needs follow up *oxybutynin (Ditropan 5 mg oral tablet) See Instructions 1 tab PO TID as needed for leakage * You have let us know that you are not taking this medication as listed. Please talk with your primary care provider or the health care provider who prescribed the medication as soon as possible. Attention: If you have any medications at home that are not on this list, DO NOT take them until youcontact your provider for clarification. Additional Information: Source: [facility] POWERCHART Document Id: [id number] Miscellaneous - Lisa Campbell M.D. - 02/10/2013 12:46 PM CDT Ambulatory Depart Summary [facility] [address] [place] [address] Visit Information Name: JANA DUMONT [facility] Number: [id number] Visit Date: 02/10/2013 12:46:59 Attending Provider: LISA CAMPBELL MD Primary Care Provider: TERRI GIL MD JANA DUMONT has been given the following list of medications: Your Medications It is important to take your medications as directed. Use a pill box or chart to help remind you to take your medications. Please let your doctor or nurse know if you have problems taking your medications. Medication/Strength Dose Route Frequency Indications/Special Instructions/Comments/Notes amoxicillin-clavulanate (Augmentin 875 mg-125 mg oral tablet) 1 tab(s) Oral two times a day for 10 Days loratadine (loratadine 10 mg oral tablet) 10 mg Oral once a day simvastatin (simvastatin 20 mg oral tablet) 20 mg Oral once a day (at bedtime) needs follow up *oxybutynin (Ditropan 5 mg oral tablet) See Instructions 1 tab PO TID as needed for leakage * You have let us know that you are not taking this medication as listed. Please talk with your primary care provider or the health care provider who prescribed the medication as soon as possible. Attention: If you have any medications at home that are not on this list, DO NOT take them until youcontact your provider for clarification. Additional Information: Source: [facility] POWERCHART Document Id: [id number] Miscellaneous - Nichelle Reynoso, C.N.A. - 02/10/2013 12:07 PM CDT Adult [employer] Intake/History Adult [employer] Intake/History Entered On: 02/10/2013 12:09 CDT Performed On: 02/10/2013 12:07 CDT by NICHELLE REYNOSO Intake Chief Complaint : COLD FOR 3 WEEKS NOW: SINUS PRESSURE IN PAIN IN FACIAL AREA Temperature Oral : 36.9 DegC(Converted to: 98.4 DegF) Peripheral Pulse Rate : 72 /min Respiratory Rate : 12 /min (LOW) Heart Rhythm : Regular Systolic Blood Pressure : 130 mmHg Diastolic Blood Pressure : 80 mmHg NIBP Mean : 97 mmHg BP Location : Right upper extremity Actual Weight : 93.9 kg(Converted to: 207 lb 0 oz) Dosing Weight Clinic : 93.9 kg NICHELLE REYNOSO - 02/10/2013 12:07 CDT General Info Information Given By : Patient Languages : Panamanian NICHELLE REYNOSO - 02/10/2013 12:07 CDT Subjective Pain Symptoms : Yes NICHELLE REYNOSO - 02/10/2013 12:07 CDT Dependent Habits Tobacco Use/Currently Using : No Exposure to Tobacco Smoke : Other: never Smoking Status : Never smoker NICHELLE REYNOSO - 02/10/2013 12:07 CDT Caffeine Use Grid Caffeine Use : None NICHELLE REYNOSO - 02/10/2013 12:07 CDT Recreational Drug Use Grid Drug Use : None NICHELLE REYNOSO - 02/10/2013 12:07 CDT [facility] Document Id: [id number] CDT!28 Miscellaneous - Nichelle Reynoso, C.N.A. - 02/10/2013 12:07 PM CDT Adult [employer] Intake/History Adult [employer] Intake/History Entered On: 02/10/2013 12:09 CDT Performed On: 02/10/2013 12:07 CDT by NICHELLE REYNOSO Intake Chief Complaint : COLD FOR 3 WEEKS NOW: SINUS PRESSURE IN PAIN IN FACIAL AREA Temperature Oral : 36.9 DegC(Converted to: 98.4 DegF) Peripheral Pulse Rate : 72 /min Respiratory Rate : 12 /min (LOW) Heart Rhythm : Regular Systolic Blood Pressure : 130 mmHg Diastolic Blood Pressure : 80 mmHg NIBP Mean : 97 mmHg BP Location : Right upper extremity Actual Weight : 93.9 kg(Converted to: 207 lb 0 oz) Dosing Weight Clinic : 93.9 kg NICHELLE REYNOSO - 02/10/2013 12:07 CDT General Info Information Given By : Patient Languages : Panamanian NICHELLE REYNOSO - 02/10/2013 12:07 CDT Subjective Pain Symptoms : Yes NICHELLE REYNOSO - 02/10/2013 12:07 CDT Dependent Habits Tobacco Use/Currently Using : No Exposure to Tobacco Smoke : Other: never Smoking Status : Never smoker NICHELLE REYNOSO - 02/10/2013 12:07 CDT Caffeine Use Grid Caffeine Use : None NICHELLE REYNOSO - 02/10/2013 12:07 CDT Recreational Drug Use Grid Drug Use : None NICHELLE REYNOSO - 02/10/2013 12:07 CDT Source: [facility] [employer] Document Id: [id number] CDT!28 documented in this encounter Plan of Treatment Not on filedocumented as of this encounter Visit Diagnoses Not on filedocumented in this encounter Additional Health Concerns Assessment Noted Time PHQ-9 Depression Total Score: 3 11/11/2011 1:33 PM CDT documented as of this encounter
--- OUTSIDE RECORDS SUMMARY | 2021-12-15 01:21 | XMS_ITS | Encounter Summary ---
:1975 Author Organization [facility] Address [address] [place] [address] Care Team Providers Name Role Phone Unavailable Primary Care Provider Unavailable Encounter Details Date Type Department Care Team Description 11/21/2013 Hospital Encounter [facility] Jarad Hdez M.D. [address] [place], [place] [address] (Wo rk) Social History Tobacco Use Types Packs/Day Years Used Date Smoking Tobacco: Never Assessed Sex Assigned at Date Recorded Not on file documented as of this encounter Last Filed Vital Signs Vital Sign Reading Time Taken Comments Blood Pressure 110/76 11/21/2013 11:44 AM CDT Pulse 80 11/21/2013 11:44 AM CDT Temperature - - Respiratory Rate 16 11/21/2013 11:44 AM CDT Oxygen Saturation - - Inhaled Oxygen Concentration - - Weight 95.3 kg (210 lb 1.6 oz) 11/21/2013 11:44 AM CDT Height 162 cm (5' 3.78) 11/21/2013 11:33 AM CDT Body Mass Index 36.31 11/21/2013 11:33 AM CDT documented in this encounter Progress Notes Naz Hdez M.D. - 11/21/2013 11:32 AM CDT [id number] CHIEF COMPLAINT/REASON FOR VISIT Followup. HISTORY OF PRESENT ILLNESS A 37-year-old female presents to clinic to discuss various issues. Did trial the fluoxetine and finds she is feeling foggy and very tired. Is sleeping a fair amount more than before. She has switched to taking it in the p.m. but definitely does not feel like her baseline and would like to discontinue this product which she just began the beginning of October. She is taking her other medications as prescribed. Is following her diet closely and exercising. Would like to review her laboratory evaluation obtained this winter. EMR reviewed. MEDICATIONS 1. Simvastatin 20 mg each day. 2. Fish oil to be discontinued in the near future. 3. Ditropan 5 mg 3 times per day as needed for stress incontinence symptoms. Patient self-discontinued this medication. 4. Fluoxetine 20 mg daily to be discontinued today. 5. Lexapro 10 mg daily to begin 11/22/2013. PREVENTIVE SERVICES: Tobacco use: None. Mammogram: Non applicable secondary to stated age. Pap smear: 06/24/2013. Chlamydia: Non applicable secondary to stated age. Colon screening: Non applicable secondary to stated age. Depression: Yes. PHQ-9 score is 7. Asthma: No. Lipids: 06/24/2013. Tetanus: 05/03/2010. Pneumovax: Non applicable secondary to stated age. Influenza: Declined. DEXA scan: Non applicable secondary to stated age. VITAL SIGNS Weight 95.3 kg, temperature 36.6, respiratory rate 16, pulse 80, systolic 110, diastolic 76. PHYSICAL EXAMINATION GENERAL: Neatly dressed, well groomed. MENTAL: Speech is of normal rate and volume, articulate, coherent, spontaneous with no notation of abnormalities. Thought processes reveal intact abstract reasoning and computation. No loose tangentialcircumstantial thoughts. No hallucinations. No delusions. No preoccupation with violence. No homicidal or suicidal ideations. Some psychosocial somatic ruminations. Gaining insight into situation and illness process. Oriented to person, place and time. Recent and remote memory are intact. Attention span and concentration are at baseline. Language and fund of knowledge suggest average intellect. Mood and affect reflect no evidence of depression, anxiety, agitation, hypomania or emotional lability. IMPRESSION/REPORT/PLAN 1. Anxiety with depression. 2. Hyperlipidemia. 3. Hyperglycemia. 4. Overweight. PLAN: Supportive measures discussed in detail. Various options discussed and the patient is interested in giving trial to the generic Lexapro. Hopefully, she will have fewer side effects than she experienced with the citalopram although it did result in good control of her symptoms. The diminished libido was significantly interrupting her activities of daily living. Obviously, the fluoxetine is not agood choice due to the describe side effects. There are various other options to consider if this new choice is not helpful. Encouraged her in her lifestyle changes which have resulted in significant improvement of her lipid profile. The glucose continues to be somewhat elevated and close follow up ofthis issue would be advised. Follow up is planned for about a month or if any change occurs. She is comfortable with this plan and will follow up accordingly. Spent the entire 25 minute visit in discussion. Naz Hdez M.D./fiorella Electronically Signed By: NAZ HDEZ MD On: 11/22/2013 03:23 PM Modified by and Electronically Signed by: NAZ HDEZ MD On: 11/22/2013 03:23 PM Source: [facility] MHSDOLBEYNONRADSYS Document Id: [id number] documented in this encounter Miscellaneous Notes Telephone Encounter - Conversion, Historical Provider Ser - 08/27/2014 4:49 PM CDT *Phone Message- Dr. Hdez Document Contains Addenda Addendum by CHANDLER YOUNGER LPN on 27 August 2014 17:10:34 CDT Patient notified that note is ready for her to leaf size picker. From: NIKI JOSE (AARON [place] Nurse) To: SUBHASH Hdez Nurse; Sent: 08/27/2014 16:49:54 CDT Subject: *Phone Message- Dr. Hdez Caller is: ( x) Patient ( ) Mother ( ) Father ( ) Spouse ( ) Daughter ( ) Son ( ) Pharmacy ( ) Other: Physician: Dr. Hdez Patient MRN #: Reason for Call: Message: S: Pt called clinic to talk to nurse B: is needing return to work status A: R: Please call pt at [phone] Advice/Action: Source used: ( ) Verbalizes understanding [...] back cell phone number ( ) [facility] Document Id: [id number] Telephone Encounter - Conversion, Historical Provider Ser - 08/27/2014 4:49 PM CDT *Phone Message- Dr. Hdez Document Contains Addenda Addendum by CHANDLER YOUNGER LPN on 27 August 2014 17:10:34 CDT Patient notified that note is ready for her to leaf size picker. From: NIKI JOSE ([facility] Nurse) To: SUBHASH Hdez Nurse; Sent: 08/27/2014 16:49:54 CDT Subject: *Phone Message- Dr. Hdez Caller is: ( x) Patient ( ) Mother ( ) Father ( ) Spouse ( ) Daughter ( ) Son ( ) Pharmacy ( ) Other: Physician: Dr. Hdez Patient MRN #: Reason for Call: Message: S: Pt called clinic to talk to nurse B: is needing return to work status A: R: Please call pt at [phone] Advice/Action: Source used: ( ) Verbalizes understanding [...] back cell phone number ( ) Source: [facility] [employer] Document Id: [id number] OLATE PACKER Miscellaneous - Naz Hdez M.D. - 11/21/2013 6:23 PM CDT Ambulatory Patient Summary [address] [facility] [id number] Visit Information Name: JANA DUMONT [facility] Number: [id number] Current Date: 11/21/2013 18:23:23 Physicians Attending Provider: NAZ HDEZ MD Primary [...] tablet) 1 Tablet(s), Oral, once a day [place] [address] [place] [id number] loratadine (loratadine 10 mg oral tablet) 1 Tablet(s), Oral, once a day simvastatin (simvastatin 20 mg oral tablet) 1 Tablet(s), Oral, once a day (at bedtime) needs follow up Stop Taking the Following Medications: Medication list as of 11-21-13 18:23 Attention: If you have any medications at [...] Electronically Signed By: NAZ HDEZ MD Signed On:21-NOV-2013 18:23:08 Your Allergies & Intolerances Substance Reaction Symptoms [...] appointment detail needed. Your Goals/Additional instructions: Source: [facility] POWERCHART Document Id: [id number] Miscellaneous - Naz Hdez M.D. - 11/21/2013 6:23 PM CDT Ambulatory Patient Summary [address] [id number] Visit Information Name: JANA DUMONT [facility] Number: [id number] Current Date: 11/21/2013 18:23:23 Physicians Attending Provider: NAZ HDEZ MD Primary [...] tablet) 1 Tablet(s), Oral, once a day New Routed to [address] [id number] loratadine (loratadine 10 mg oral tablet) 1 Tablet(s), Oral, once a day simvastatin (simvastatin 20 mg oral tablet) 1 Tablet(s), Oral, once a day (at bedtime) needs follow up Stop Taking the Following Medications: Medication list as of 11-21-13 18:23 Attention: If you have any medications at [...] Electronically Signed By: NAZ HDEZ MD Signed On:21-NOV-2013 18:23:08 Your Allergies & Intolerances Substance Reaction Symptoms [...] appointment detail needed. Your Goals/Additional instructions: Source: [facility] POWERCHART Document Id: [id number] Miscellaneous - Naz Hdez M.D. - 11/21/2013 6:23 PM CDT Ambulatory Discharge Medication List [address] [id number] Visit Information Name: JANA DUMONT [facility] Number: [id number] Visit Date: 11/21/2013 18:23:21 Attending Provider: NAZ HDEZ MD Primary Care [...] tablet) 1 Tablet(s), Oral, once a day New Routed to [address] [facility] [place] [id number] loratadine (loratadine 10 mg oral tablet) 1 Tablet(s), Oral, once a day simvastatin (simvastatin 20 mg oral tablet) 1 Tablet(s), Oral, once a day (at bedtime) needs follow up Stop Taking the Following Medications: Medication list as of 11-21-13 18:23 Attention: If you have any medications at [...] Electronically Signed By: NAZ HDEZ MD Signed On:21-NOV-2013 18:23:08 Additional Information: Source: [facility] POWERCHART Document Id: [id number] Miscellaneous - Naz Hdez M.D. - 11/21/2013 6:23 PM CDT Ambulatory Discharge Medication List [place] [id number] [facility] [phone] Visit Information Name: JAAN DUMONT [facility] Number: [id number] Visit Date: 11/21/2013 18:23:21 Attending Provider: NAZ HDEZ MD Primary Care [...] tablet) 1 Tablet(s), Oral, once a day New Routed to [address] [id number] loratadine (loratadine 10 mg oral tablet) 1 Tablet(s), Oral, once a day simvastatin (simvastatin 20 mg oral tablet) 1 Tablet(s), Oral, once a day (at bedtime) needs follow up Stop Taking the Following Medications: Medication list as of 11-21-13 18:23 Attention: If you have any medications at [...] Electronically Signed By: NAZ HDEZ MD Signed On:21-NOV-2013 18:23:08 Additional Information: Source: [facility] POWERCHART Document Id: [id number] Miscellaneous - Naz Hdez M.D. - 11/21/2013 6:19 PM CDT PHQ-9 PHQ-9 Entered On: 11/21/2013 18:20 CDT Performed On: 11/21/2013 18:19 CDT by NAZ HDEZ MD PHQ-9 Little interest or pleasure in doing things : Not at all Feeling down, depressed, or hopeless : Not at all Trouble falling or staying asleep, or sleeping too much : Nearly every day Feeling tired or having little energy : Several days Poor appetite or overeating : More than half the days Feeling bad about yourself or that you are a failure : Not at all Trouble concentrating on things : Several days Moving or speaking slowly; restless or fidgety : Not at all Thoughts that you would be better off /hurting self : Not at all PHQ-9 Calculated Score : 7 Problems make work, home, or dealing with others : Somewhat difficult NAZ HDEZ MD - 11/21/2013 18:19 CDT Source: Medication Review Document Id: [id number] CDT!13 Miscellaneous - Naz Hdez M.D. - 11/21/2013 6:19 PM CDT PHQ-9 PHQ-9 Entered On: 11/21/2013 18:20 CDT Performed On: 11/21/2013 18:19 CDT by NAZ HDEZ MD PHQ-9 Little interest or pleasure in doing things : Not at all Feeling down, depressed, or hopeless : Not at all Trouble falling or staying asleep, or sleeping too much : Nearly every day Feeling tired or having little energy : Several days Poor appetite or overeating : More than half the days Feeling bad about yourself or that you are a failure : Not at all Trouble concentrating on things : Several days Moving or speaking slowly; restless or fidgety : Not at all Thoughts that you would be better off /hurting self : Not at all PHQ-9 Calculated Score : 7 Problems make work, home, or dealing with others : Somewhat difficult NAZ HDEZ MD - 11/21/2013 18:19 CDT Source: Medication Review Document Id: [id number] CDT!13 Miscellaneous - Chandler Younger L.PLotus - 11/21/2013 11:44 AM CDT Adult 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 Logistics Analyst Intake/History Entered On: 11/21/2013 11:46 CDT Performed On: 11/21/2013 11:44 CDT by CHANDLER YOUNGER LPN Intake Chief Complaint : recheck Temperature Core : 36.6 DegC(Converted to: 97.9 DegF) Peripheral Pulse Rate : 80 /min Respiratory Rate : 16 /min Systolic Blood Pressure : 110 mmHg Diastolic Blood Pressure : 76 mmHg NIBP Mean : 87 mmHg BP Location : Left upper extremity Blood Pressure Cuff Size : Regular Actual Weight : 95.3 kg(Converted to: 210 lb 2 oz) Dosing Weight Clinic : 95.3 kg CHANDLER YOUNGER LPN - 11/21/2013 11:44 CDT General Info Languages : Serbian CHANDLER YOUNGER LPN - 11/21/2013 11:44 CDT Subjective Pain Symptoms : No CHANDLER YOUNGER LPN - 11/21/2013 11:44 CDT Dependent Habits Tobacco Use/Currently Using : No Tobacco Use/Last 12 months : No Exposure to Tobacco Smoke : Other: never Smoking Status : Never smoker CHANDLER YOUNGER LPN - 11/21/2013 11:44 CDT Caffeine Use Grid Caffeine Use : None CHANDLER YOUNGER LPN - 11/21/2013 11:44 CDT Recreational Drug Use Grid Drug Use : None CHANDLER YOUNGER LPN - 11/21/2013 11:44 CDT Source: Medication Review Document Id: [id number] CDT!28 Miscellaneous - Chandler Younger L.P.N. 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 Logistics Analyst Intake/History Entered On: 11/21/2013 11:46 CDT Performed On: 11/21/2013 11:44 CDT by CHANDLER YOUNGER LPN Intake Chief Complaint : recheck Temperature Core : 36.6 DegC(Converted to: 97.9 DegF) Peripheral Pulse Rate : 80 /min Respiratory Rate : 16 /min Systolic Blood Pressure : 110 mmHg Diastolic Blood Pressure : 76 mmHg NIBP Mean : 87 mmHg BP Location : Left upper extremity Blood Pressure Cuff Size : Regular Actual Weight : 95.3 kg(Converted to: 210 lb 2 oz) Dosing Weight Clinic : 95.3 kg CHANDLER YOUNGER LPN - 11/21/2013 11:44 CDT General Info Languages : Serbian ARMIN CHANDLER CRUZ LPN - 11/21/2013 11:44 CDT Subjective Pain Symptoms : No ARMINCHANDLER GONZALEZ NANCY ANTONOI - 11/21/2013 11:44 CDT Dependent Habits Tobacco Use/Currently Using : No Tobacco Use/Last 12 months : No Exposure to Tobacco Smoke : Other: never Smoking Status : Never smoker CHANDLER YOUNGER LPN - 11/21/2013 11:44 CDT Caffeine Use Grid Caffeine Use : None CHANDLER YOUNGER LPN - 11/21/2013 11:44 CDT Recreational Drug Use Grid Drug Use : None CHANDLER YOUNGER LPN - 11/21/2013 11:44 CDT Source: Medication Review Document Id: [id number] CDT!28 documented in this encounter Plan of Treatment Not on filedocumented as of this encounter Visit Diagnoses Not on filedocumented in this encounter Additional Health Concerns Assessment Noted Time PHQ-9 Depression Total Score: 7 11/21/2013 6:19 PM CDT documented as of this encounter
--- OUTSIDE RECORDS SUMMARY | 2021-12-15 01:21 | XMS_ITS | Encounter Summary ---
:1975 Author Organization [facility] Address [address] [place] [address] Care Team Providers Name Role Phone Unavailable Primary Care Provider Unavailable Encounter Details Date Type Department Care Team Description 03/17/2010 Hospital Encounter HX [facility] FB NURSE Jarad Nettles M.D. [address] [place], [place] [address] (Wo rk) Social History [...]
--- OUTSIDE RECORDS SUMMARY | 2021-12-15 01:21 | XMS_ITS | Encounter Summary ---
:1975 Author Organization [facility] Address [address] [place] [address] Care Team Providers Name Role Phone Unavailable Primary Care Provider Unavailable Encounter Details Date Type Department Care Team Description 03/21/[address] [facility] Jarad Hdez M.D. [address] [place] [address] (Wo rk) Social History Tobacco [...]
--- OUTSIDE RECORDS SUMMARY | 2021-12-15 01:21 | XMS_ITS | Encounter Summary ---
:1975 Author Organization [facility] Address [address] [place] [address] Care Team Providers Name Role Phone Unavailable Primary Care Provider Unavailable Encounter Details Date Type Department Care Team Description 05/18/2006 Hospital Encounter HX [facility] Teresa Alan M.D. [address] [facility], [place] [address] (Wo rk) Social History Tobacco Use Types Packs/Day Years Used Date Smoking Tobacco: Never Assessed Sex Assigned at Date Recorded Not on file documented as of this encounter Plan of Treatment Not on filedocumented as of this encounter Visit Diagnoses Not on filedocumented in this encounter
--- OUTSIDE RECORDS SUMMARY | 2021-12-15 01:21 | XMS_ITS | Encounter Summary ---
:1975 Author Organization [facility] Address [address] [place] [address] Care Team Providers Name Role Phone Unavailable Primary Care Provider Unavailable Encounter Details Date Type Department Care Team Description 03/15/2006 Hospital Encounter HX [facility] D[facility]M Teresa Ashby M.D. [address] [facility], [place] [address] (Wo rk) Social History Tobacco Use Types Packs/Day Years Used Date Smoking Tobacco: Never Assessed Sex Assigned at Date Recorded Not on file documented as of this encounter Plan of Treatment Not on filedocumented as of this encounter Visit Diagnoses Not on filedocumented in this encounter
--- OUTSIDE RECORDS SUMMARY | 2021-12-15 01:21 | XMS_ITS | Encounter Summary ---
:1975 Author Organization [facility] Address [address] [place] [address] Care Team Providers Name Role Phone Unavailable Primary Care Provider Unavailable Encounter Details Date Type Department Care Team Description 08/05/2005 Hospital Encounter HX [facility] DERM Teresa Ashby M.D. [address] [facility], [place] [address] (Wo rk) Social History Tobacco Use Types Packs/Day Years Used Date Smoking Tobacco: Never Assessed Sex Assigned at Date Recorded Not on file documented as of this encounter Plan of Treatment Not on filedocumented as of this encounter Visit Diagnoses Not on filedocumented in this encounter
--- OUTSIDE RECORDS SUMMARY | 2021-12-15 01:21 | XMS_ITS | Encounter Summary ---
:1975 Author Organization [facility] Address [address] [place] [address] Care Team Providers Name Role Phone Unavailable Primary Care Provider Unavailable Encounter Details Date Type Department Care Team Description 10/04/2006 Hospital Encounter HX [facility] D[facility] Teresa Ashby M.D. [address] [facility], [place] [address] (Wo rk) Social History Tobacco Use Types Packs/Day Years Used Date Smoking Tobacco: Never Assessed Sex Assigned at Date Recorded Not on file documented as of this encounter Plan of Treatment Not on filedocumented as of this encounter Visit Diagnoses Not on filedocumented in this encounter
--- OUTSIDE RECORDS SUMMARY | 2021-12-15 01:21 | XMS_ITS | Encounter Summary ---
:1975 Author Organization [facility] Address [address] [place] [address] Care Team Providers Name Role Phone Unavailable Primary Care Provider Unavailable Encounter Details Date Type Department Care Team Description 05/06/2010 Hospital Encounter HX [facility] FB NURSE Jarad Nettles M.D. [address] [place], [place] [address] (Wo rk) Social History Tobacco Use Types Packs/Day Years Used Date Smoking Tobacco: Never Assessed Sex Assigned at Date Recorded Not on file documented as of this encounter Nursing Notes Dm Alvarado LPeymanP.N. - 05/06/2010 9:03 AM CST holter holter off at 9:am Electronically Signed By:DM ALVARADO LPN On 05/06/2010 09:04 am Source: [facility] [employer] Document Id: [id number] TY RISK LEAD Dm Alvarado L.P.N. - 05/06/2010 9:03 AM CST holter holter off at 9:am Electronically Signed By:DM ALVARADO LPN On 05/06/2010 09:04 am Source: [facility] [employer] Document Id: [id number] TY RISK LEAD documented in this encounter Plan of Treatment Not on filedocumented as of this encounter Visit Diagnoses Not on filedocumented in this encounter Additional Health Concerns Assessment Noted Time PHQ-9 Depression Total Score: 3 02/25/2010 12:30 PM CD T documented as of this encounter
--- OUTSIDE RECORDS SUMMARY | 2021-12-15 01:21 | XMS_ITS | Encounter Summary ---
:1975 Author Organization [facility] Address [address] [place] [address] Care Team Providers Name Role Phone Unavailable Primary Care Provider Unavailable Encounter Details Date Type Department Care Team Description 10/08/2008 Hospital Encounter HX [facility] D[facility] Teresa Ashby M.D. [address] [facility], [place] [address] (Wo rk) Social History Tobacco Use Types Packs/Day Years Used Date Smoking Tobacco: Never Assessed Sex Assigned at Date Recorded Not on file documented as of this encounter Plan of Treatment Not on filedocumented as of this encounter Visit Diagnoses Not on filedocumented in this encounter
--- OUTSIDE RECORDS SUMMARY | 2021-12-15 01:21 | XMS_ITS | Encounter Summary ---
:1975 Author Organization [facility] Address [address] [place] [address] Care Team Providers Name Role Phone Unavailable Primary Care Provider Unavailable Encounter Details Date Type Department Care Team Description 06/14/2006 Hospital Encounter HX [facility] D[facility] Teresa Ashby M.D. [address] [facility], [place] [address] (Wo rk) Social History Tobacco Use Types Packs/Day Years Used Date Smoking Tobacco: Never Assessed Sex Assigned at Date Recorded Not on file documented as of this encounter Plan of Treatment Not on filedocumented as of this encounter Visit Diagnoses Not on filedocumented in this encounter
--- OUTSIDE RECORDS SUMMARY | 2021-12-15 01:21 | XMS_ITS | Encounter Summary ---
:1975 Author Organization [facility] Address [address] [place] [address] Care Team Providers Name Role Phone Unavailable Primary Care Provider Unavailable Encounter Details Date Type Department Care Team Description 05/25/2011 Hospital Encounter HX [facility] FB NURSE Jarad Nettles M.D. [address] [place], [place] [address] (Wo rk) Social History Tobacco Use Types Packs/Day Years Used Date Smoking Tobacco: Never Assessed Sex Assigned at Date Recorded Not on file documented as of this encounter Procedure Notes Conversion, Historical Provider Ser - 05/25/2011 3:30 PM CST PPD Reading PPD Reading Entered On: 05/25/2011 15:59 MORTGAGE LOAN ORIGINATOR Performed On: 05/25/2011 15:30 MORTGAGE LOAN ORIGINATOR by MANNY HOOD PPD Reading MM of Induration : 12mm PPD Interpretation : Positive PPD Placed On : Right inner forearm PPD Date/Time Administered : 05/23/2011 10:00 MORTGAGE LOAN ORIGINATOR PPD Reading Comment : Patient making an apt to see primary care provider. MANNY HOOD - 05/25/2011 15:57 MORTGAGE LOAN ORIGINATOR Source: [facility] POWERCHART Document Id: [id number] MORTGAGE LOAN ORIGINATOR!7 Conversion, Historical Provider Ser - 05/25/2011 3:30 PM CST PPD Reading PPD Reading Entered On: 05/25/2011 15:59 MORTGAGE LOAN ORIGINATOR Performed On: 05/25/2011 15:30 MORTGAGE LOAN ORIGINATOR by MANNY HOOD PPD Reading MM of Induration : 12mm PPD Interpretation : Positive PPD Placed On : Right inner forearm PPD Date/Time Administered : 05/23/2011 10:00 MORTGAGE LOAN ORIGINATOR PPD Reading Comment : Patient making an apt to see primary care provider. MANNY HOOD - 05/25/2011 15:57 MORTGAGE LOAN ORIGINATOR Source: [facility] POWERCHART Document Id: [id number] MORTGAGE LOAN ORIGINATOR!7 GAGE LOAN ORIGINATOR documented in this encounter Plan of Treatment Not on filedocumented as of this encounter Procedures Procedure Name Priority Date/Time Associated Diagnosis Comme nts HX TB SKIN TEST-LAB Routine 05/25/2011 3:30 PM Re sults for this MORTGAGE LOAN ORIGINATOR procedure are i n the results section. documented in this encounter Results HX TB SKIN TEST-LAB (05/25/2011 3:30 PM MORTGAGE LOAN ORIGINATOR) P athologist Signature TB Skin Test 12 MM POWERCHART TB Skin Test Positive POWERCHART Specimen (Source) Anatomical Collection Method Collection Time Re ceived Time Location / / Volume Laterality 05/25/2011 3:30 PM MORTGAGE LOAN ORIGINATOR Historical Provider LAB HISTORICAL ORDERS Performing Organization Address City/State/ZIP Code Phon e Number POWERCHART documented in this encounter Visit Diagnoses Not on filedocumented in this encounter Additional Health Concerns Assessment Noted Time PHQ-9 Depression Total Score: 3 04/20/2011 5:53 PM MORTGAGE LOAN ORIGINATOR documented as of this encounter
== END 2021-12-08 09:00 | disposition home or self-care (01) ==
LOC: FBOREF 09:00
PROVIDERS: PCP Family Medicine; Visit Provider Obstetrics & Gynecology
DX: Z20.822 Contact with and (suspected) exposure to COVID-19 (principal)
CPT/HCPCS: 87635

== ENCOUNTER 2021-12-09 08:39 | Day surgery (SDC) | payer BC, SELFPAY ==
[2021-12-09] MEDS: LACTATED RINGERS 1000 ML 1,000 ML 35 ML IV (09:00)
[2021-12-09 09:09] LABS: Ur HCG Qualitative* Negative (Negative)
[2021-12-09 09:11] VITALS: BP 155/86; PULSE 88; RESP 16; TEMP 37.1; O2SAT 99; BMI 40.4
[2021-12-09] MEDS: ETHYL CHLORIDE 1 APPLICATION 1 APPLIC TOPICAL (09:23)
[2021-12-09] MEDS: SODIUM CHLORIDE 0.9 % (FLUSH) 10 ML SYRINGE IVF (09:23)
[2021-12-09] MEDS: LIDOCAINE 1% 5 ml (pf) 5 ML VIAL 10 ML INJECTION (11:14)
--- NOTE | 2021-12-09 11:42 | P.GYNPRC_ITS ---
Procedure Note Date Seen: 12/09/21 Procedure Details: PREOPERATIVE DIAGNOSIS: Menorrhagia, anemia POSTOPERATIVE DIAGNOSIS: Menorrhagia, anemia PROCEDURE: Hysteroscopy, dilation and curettage, Angela endometrial ablation SURGEON: Amna Gonsalves MD ANESTHESIA: Monitored anesthesia care, paracervical block IV FLUIDS: 900 mL crystalloid URINE OUTPUT: approximately 25 mL EBL: 10 mL SALINE DEFICIT: 185 mL FINDINGS: 1. On exam under anesthesia, there is a stage 1-2 cystocele. Cervix is no rmal appearance. Uterus is retroverted and of normal size and texture. No palpable adnexal masses or tenderness. 2. Upon hysteroscopy, survey of the endometrial cavity revealed a normal shape. Bilateral tubal ostia were normal in appearance. The endometrium was diffusely thickened without discrete polyps noted. The endocervix was normal in appearance. 3. Uterine sounding depth is 10 cm, cervical length 4 cm. COMPLICATIONS: None PROCEDURE IN DETAIL: Patient was taken to the operating room with IV running. She was positioned in dorsal lithotomy position with her legs fully supported in Yellofin stirrups. Monitored anesthesia care was administered. She was prepped and draped in the usual sterile fashion. Exam under anesthesia was performed for the above-noted findings. Speculum was inserted. Cervix visualized and grasped along the anterior lip with a single-tooth tenaculum. Paracervical block was performed for a total of 10 mL of 1% lidocaine. Cervix was serially dilated to accommodate the TRUCLEAR hysteroscope. This was assembled with saline inflow and outflow in place. The line was flushed of bubbles. The hysteroscope was advanced through the cervix into the endometrial cavity for the above noted findings. The soft tissue morcellator was then inserted through the operating channel. Window lock was performed. Under direct visualization, the endometrial cavity was circumferentially curetted with the tissue morcellator. The hysteroscope and morcellator were then removed from the uterus. Uterine and cervical measurements were then performed with uterine sound, with findings as noted above. Cervix was serially dilated to accommodate the Angela handheld device. The device was then powered on. The hand-held device was inserted through the cervix and the array was deployed. Appropriate uterine width was noted. The intracervical balloon was then inflated. The pedal was pushed to activate to the cavity integrity test, both of which were passed. The ablation cycle then ensued. Thereafter, the intracervical balloon was deflated, and the device was retracted from the uterus. Hysteroscope was reinserted, confirming ablation of the endometrium. Hysteroscope was removed. Tenaculum was removed from the anterior lip of cervix. Hemostasis was achieved with silver nitrate. Patient tolerated procedure well. She was taken to recovery area in stable condition.
--- NOTE | 2021-12-09 11:44 | W.ANESCHARGE ---
Anesthesia Charges Start Date/Time Anesthesia Start Date: 12/09/21 Anesthesia Start Time: 10:48 Stop Date/Time Anesthesia Stop Date: 12/09/21 Anesthesia Stop Time: 11:47 Summary Emergency: No
[2021-12-09 11:45] VITALS: BP 105/49; PULSE 98; RESP 14; TEMP 36.6; O2SAT 100
--- NOTE | 2021-12-09 11:58 | W.ANESCHARGE ---
Anesthesia Charges Start Date/Time Anesthesia Start Date: 12/09/21 Anesthesia Start Time: 10:48 Stop Date/Time Anesthesia Stop Date: 12/09/21 Anesthesia Stop Time: 11:47 Summary Emergency: No
[2021-12-09 12:00] VITALS: BP 115/54; PULSE 69; RESP 14; O2SAT 100
[2021-12-09 12:15] VITALS: BP 122/74; PULSE 60; RESP 16; O2SAT 96
[2021-12-09 12:30] VITALS: BP 107/55; PULSE 70; RESP 16; O2SAT 96
[2021-12-09 12:45] VITALS: BP 110/60; PULSE 68; RESP 16; TEMP 36.7; O2SAT 99
== END 2021-12-09 12:50 | disposition home or self-care (01) ==
PROVIDERS: PCP Family Medicine; Visit Provider Obstetrics & Gynecology
PROC: 0UF98ZZ Fragmentation in Uterus, Via Natural or Artificial Opening Endoscopic (ICD-10-PCS; CPT 58563; principal; 2021-12-09 10:00)
DX: N92.0 Excessive and frequent menstruation with regular cycle (principal); D64.9 Anemia, unspecified; N81.10 Cystocele, unspecified
CPT/HCPCS: 58563; 00952; 36415; 81025; 86850; 86900; 86901; 88305; J1100; J2250; J2405; J2704; J3490; J7120